=== PATIENT | female | born 1995 | race Caucasian/White ===

== ENCOUNTER 2022-05-09 14:00 | Outpatient (RCR) | payer BC, SELFPAY | END 2022-05-13 13:17 | disposition home or self-care (01) | LOC: HO.PTCHIC 14:00 | PROVIDERS: Visit Provider Orthopaedic Surgery | DX: Z98.890 Other specified postprocedural states (principal) | CPT/HCPCS: 97110; 97112; 97161; 97530 ==

== ENCOUNTER 2022-06-08 06:30 | Emergency (ER) | payer BC, SELFPAY ==
[2022-06-08 07:00] VITALS: BP 112/67; PULSE 90; RESP 16; TEMP 36.4; O2SAT 97; BMI 33.6
--- NOTE | 2022-06-08 08:03 | ED.GENADULT ---
HPI - General Adult General Chief complaint: General Medical Stated complaint: Nausea/Vaginal Discharge Time Seen by Provider: 06/08/22 08:00 Source: patient Mode of arrival: ambulatory Limitations: no limitations History of Present Illness HPI narrative: pt presented with multiple complaints nausea/blood in the urine for days,she has hx of adjustment disorder Onset (ago): day(s) Radiation: non-radiation Severity: mild Pain Consistency: constant Relieving factors: none Exacerbating factors: none Related Data Allergies Allergy/AdvReac Type Severity Reaction Status Date / Time buspirone [From BUSPAR] Allergy Unknown RASH Unverified 11/25/19 19:49 Review of Systems Constitutional: Constitutional: Reports no additional constitutional complaints ENT: Reports system reviewed and no additional complaints, except as documented Cardiovascular: Cardiovascular: Reports no additional cardiovascular complaints Genitourinary: Genitourinary: Reports hematuria PMFSH Past Medical History PMFSH Narrative: Adjustement disorder Social History Social History Advance Directives: No Advance Directives Information Provided: Yes Physical Exam ED Vital Signs: Vital Signs - 24 hr 06/08/22 07:00 Temperature 97.5 F Pulse Rate 90 Respiratory Rate 16 Blood Pressure 112/67 Pulse Oximetry 97 Oxygen Delivery Method Room Air BMI result Body Mass Index 33.6 Const General: cooperative Nutritional Appearance: average body habitus Orientation/consciousness: patient oriented x3 Limitations: no limitations HENMT Head: Yes normal to inspection General nose exam: Normal external nose present Face and sinus: Yes normal facial exam Mouth: Normal oral and palatal mucosa present Throat: Yes posterior oropharynx normal Neck Neck: Yes normal visual inspection Chest Chest palpation & inspection: normal inspection of the chest Resp Effort & Inspection: normal respiratory effort Auscultation: clear to auscultation bilaterally Cardio Jugular venous distension: no JVD Rate: regular rate Rhythm: regular rhythm GI Inspection: Yes normal to inspection Palpation (GI): Soft to palpation Auscultation: normal bowel sounds Skin General skin exam: no rashes or lesions noted and elasticity normal Rashes: no rashes Neuro General: patient oriented x3 Medical Decision Making Medical Decision Making [facility] Narrative: pt presented with hematuria will get UA/labs and reassess Differential Diagnosis Differential Diagnoses: The differential diagnosis associated with the presentation includes kidney stoneUTI/anxiety Lab Data 06/08/22 08:53 06/08/22 08:53 Labs: Lab Results 06/08/22 06/08/22 06/08/22 Range/Units 08:52 08:52 08:53 WBC 5.0 (4.8-10.8) X10*3/uL RBC 4.51 (4.20-5.50) X10*6/uL Hgb 13.5 (12.0-16.0) g/dl Hct 39.4 (37.0-47.0) % MCV 87.4 (80.0-98.0) fL MCH 29.9 (27.0-33.0) pg MCHC 34.3 (31.0-35.0) g/dl RDW 12.3 (11.0-16.0) % Plt Count 260 (160-400) X10*3/uL MPV 8.6 L (9.4-12.3) fL Immature Gran % (Auto) 0.8 H (0.0-0.4) % Neut % (Auto) 50.6 (45-73) % Lymph % (Auto) 38.0 (20-40) % [place] % (Auto) 9.0 (2-11) % Eos % (Auto) 1.2 (0-4) % Baso % (Auto) 0.4 (0-2) % Lymph # (Auto) 1.9 (1.2-4.9) X10*3/uL [place] # (Auto) 0.5 (0.1-1.2) X10*3/uL Eos # (Auto) 0.1 (0.0-0.4) X10*3/uL Baso # (Auto) 0.0 (0.0-0.2) X10*3/uL Abs Immat Gran (auto) 0.04 H (0.00-0.03) X10*3/uL Absolute Neuts (auto) 2.5 (2.0-8.3) x10*3/uL Absolute Nucleated RBC 0.000 (0.0-0.012) X10*3/uL Nucleated RBC % (auto) 0.0 (0.0-0.2) /100WBC Sodium (135-145) mmol/L Potassium (3.3-5.1) mmol/L Chloride (96-108) mmol/L Carbon Dioxide (22-29) mmol/L Anion Gap (12-20) BUN (9-16) mg/dL Creatinine (0.5-1.4) mg/dL Estim Creat Clear Calc Estimated GFR Random Glucose (60-115) mg/dL Calcium (8.4-10.2) mg/dL Total Bilirubin (0.0-1.0) mg/dL AST (5-31) U/L ALT (0-31) U/L Alkaline Phosphatase (39-117) U/L Total Protein (6.5-8.0) g/dL Albumin (3.5-5.0) g/dL Urine Color Yellow Urine Appearance Cloudy Urine pH 6.5 (5.0-9.0) Ur Specific [place] 1.010 (1.005-1.025) Urine Protein Negative (Neg-Trace) mg/dL Urine Glucose (UA) Negative (Negative) mg/dL Urine Ketones Negative (Negative) mg/dL Urine Blood Large (3+) H (Negative) Urine Nitrite Negative (Negative) Ur Leukocyte Esterase Trace H (Negative) Urine RBC 3-5 H (0-2) /HPF Urine WBC 0-5 (0-5) /HPF Ur Squamous Epith Cells 6-10 (0-2) /HPF Urine Bacteria Trace (None Seen) Hyaline Casts 0-2 (0-2) /LPF Urine Test NEGATIVE (NEGATIVE) 06/08/22 Range/Units 08:53 WBC (4.8-10.8) X10*3/uL RBC (4.20-5.50) X10*6/uL Hgb (12.0-16.0) g/dl Hct (37.0-47.0) % MCV (80.0-98.0) fL MCH (27.0-33.0) pg MCHC (31.0-35.0) g/dl RDW (11.0-16.0) % Plt Count (160-400) X10*3/uL MPV (9.4-12.3) fL Immature Gran % (Auto) (0.0-0.4) % Neut % (Auto) (45-73) % Lymph % (Auto) (20-40) % [place] % (Auto) (2-11) % Eos % (Auto) (0-4) % Baso % (Auto) (0-2) % Lymph # (Auto) (1.2-4.9) X10*3/uL [place] # (Auto) (0.1-1.2) X10*3/uL Eos # (Auto) (0.0-0.4) X10*3/uL Baso # (Auto) (0.0-0.2) X10*3/uL Abs Immat Gran (auto) (0.00-0.03) X10*3/uL Absolute Neuts (auto) (2.0-8.3) x10*3/uL Absolute Nucleated RBC (0.0-0.012) X10*3/uL Nucleated RBC % (auto) (0.0-0.2) /100WBC Sodium 140 (135-145) mmol/L Potassium 3.3 (3.3-5.1) mmol/L Chloride 104 (96-108) mmol/L Carbon Dioxide 24 (22-29) mmol/L Anion Gap 15 (12-20) BUN 11 (9-16) mg/dL Creatinine 0.64 (0.5-1.4) mg/dL Estim Creat Clear Calc 145.0 Estimated GFR > 60 Random Glucose 96 (60-115) mg/dL Calcium 8.9 (8.4-10.2) mg/dL Total Bilirubin 0.7 (0.0-1.0) mg/dL AST 19 (5-31) U/L ALT 22 (0-31) U/L Alkaline Phosphatase 72 (39-117) U/L Total Protein 7.1 (6.5-8.0) g/dL Albumin 4.4 (3.5-5.0) g/dL Urine Color Urine Appearance Urine pH (5.0-9.0) Ur Specific [place] (1.005-1.025) Urine Protein (Neg-Trace) mg/dL Urine Glucose (UA) (Negative) mg/dL Urine Ketones (Negative) mg/dL Urine Blood (Negative) Urine Nitrite (Negative) Ur Leukocyte Esterase (Negative) Urine RBC (0-2) /HPF Urine WBC (0-5) /HPF Ur Squamous Epith Cells (0-2) /HPF Urine Bacteria (None Seen) Hyaline Casts (0-2) /LPF Urine Test (NEGATIVE) Discharge Plan Discharge Clinical Impression: Hematuria Patient Disposition: Home, Self-Care Instructions: Hematuria (ED) Additional Instructions: your lab were good kidney test/liver.wbc.You have ew red cell in the urine maybe related to period.you do not have an Emergency at this time You can follow up with Primary Care Doctor if you do not have one call [facility] [phone] Referrals: Physician,Unknown J [Primary Care Provider] - 2 days Interventions: ED Discharge Assessment Last Done: 06/08/22 10:13 Discharge Date/Time: 06/08/22 10:13
[2022-06-08 08:58] LABS: MANUAL DIFF FLAG NO
[2022-06-08 09:00] LABS: Appearance Urine Cloudy; Color Urine Yellow; Glucose Urine UA Negative (Negative); Leukocyte Esterase Urine Trace (Negative); Nitrite Urine Negative (Negative); PH 6.5 (5.0-9.0); UMIC TRIGGER UACC YES; Urine Blood Large (3+) (Negative); Urine Ketones Negative (Negative); Urine Protein Negative (Neg-Trace)
[2022-06-08 09:03] LABS: UPreg QC Valid YES; Urine Pregnancy NEGATIVE (NEGATIVE)
--- NOTE | 2022-06-08 09:05 | PC.NURSE ---
Ambulated to bathroom with steady gait. Labs drawn and sent, awaiting results. Call campos within reach. Pt resting comfortably in bed.
[2022-06-08 09:06] LABS: Basophils Percent Auto 0.4 % (0-2); Eosinophils Absolute Auto 0.1 X10*3/uL (0.0-0.4); Eosinophils Percent Auto 1.2 % (0-4); Hematocrit 39.4 % (37.0-47.0); Hemoglobin 13.5 g/dl (12.0-16.0); Imm Gran Abs Auto 0.04 X10*3/uL (0.00-0.03); Imm Gran Pct Auto 0.8 % (0.0-0.4); Lymphocytes Absolute Auto 1.9 X10*3/uL (1.2-4.9); Mean Corpuscular HGB Conc 34.3 g/dl (31.0-35.0); Mean Corpuscular Hemoglobin 29.9 pg (27.0-33.0); Mean Corpuscular Volume 87.4 fL (80.0-98.0); Mean Platelet Volume 8.6 fL (9.4-12.3); Monocytes Absolute Auto 0.5 X10*3/uL (0.1-1.2); Neutrophils Absolute Auto 2.5 x10*3/uL (2.0-8.3); Neutrophils Percent Auto 50.6 % (45-73); Platelet Count 260 X10*3/uL (160-400); Red Blood Count 4.51 X10*6/uL (4.20-5.50); Red Cell Distribution Width 12.3 % (11.0-16.0)
[2022-06-08 09:12] LABS: Bacteria Urine Trace (None Seen); Hyaline Casts Urine 0-2 /LPF (0-2); WBC Urine 0-5 /HPF (0-5)
[2022-06-08 09:17] LABS: Alanine Aminotransferase 22 U/L (0-31); Albumin Level 4.4 g/dL (3.5-5.0); Alkaline Phosphatase 72 U/L (39-117); Anion Gap 15 (12-20); Aspartate Amino Transferase 19 U/L (5-31); Bilirubin Total 0.7 mg/dL (0.0-1.0); Blood Urea Nitrogen 11 mg/dL (9-16); Calcium 8.9 mg/dL (8.4-10.2); Carbon Dioxide 24 mmol/L (22-29); Chloride 104 mmol/L (96-108); Estimated Glomerular Filt Rate > 60; Glucose Random 96 mg/dL (60-115); Potassium 3.3 mmol/L (3.3-5.1); Sodium 140 mmol/L (135-145); Total Protein 7.1 g/dL (6.5-8.0)
== END 2022-06-08 10:13 | disposition home or self-care (01) ==
PROVIDERS: Emergency Provider Emergency Medicine
DX: R31.9 Hematuria, unspecified (principal)
CPT/HCPCS: 36415; 80053; 81001; 81025; 85025; 99283; 99284

== ENCOUNTER 2022-06-14 16:10 | Inpatient (IN) | payer BC, SELFPAY ==
--- NOTE | 2022-06-14 | ECG_ITS ---
Test Reason : CRISIS Blood Pressure : / mmHG Vent. Rate : 080 BPM Atrial Rate : 080 BPM P-R Int : 142 ms QRS Dur : 078 ms QT Int : 346 ms P-R-T Axes : 061 067 059 degrees QTc Int : 399 ms Normal sinus rhythm Normal ECG When compared with ECG of 01-JUN-2019 09:48, No significant change was found Referred By: Roxy Alatorre Electronically Signed By:Jhonathan Spencer
[2022-06-14 16:21] VITALS: BP 111/76; BP 114/78; PULSE 82; PULSE 98; RESP 18; TEMP 36.7; O2SAT 98; O2SAT 99; BMI 29.4
--- NOTE | 2022-06-14 17:35 | ED.PSYCH ---
HPI - Psych General Chief Complaint: Psychiatric Symptoms Stated Complaint: crisis Time Seen by Provider: 06/14/22 16:27 Source: patient Mode of arrival: EMS Limitations: no limitations History of Present Illness HPI Narrative: Patient comes to the emergency room via ambulance from an urgent care. Patient states that earlier today, patient complained to her landlord that the smoke detectors are not working. The landlord supposedly told the patient that if she is having any trouble breathing, she needs to go to urgent care, so patient did. EMS reports that the urgent care staff was complaining the patient is very disorganized, seems that patient has history of bipolar disorder and schizophrenia and is not taking any medications. Patient is not suicidal homicidal. Patient was brought to the emergency room. Here in the emergency room, patient has multiple vague complaints, states that she has urinary symptoms, some gynecological issues, some behavior health issues. Nothing specific. Difficult to follow patient's conversation, her speech is very scattered and disorganized. Related Data Home Medications Medication Instructions Recorded Confirmed hydroxyzine pamoate 25 mg capsule 25 mg PO BEDTIME PRN Anxiety 06/14/22 06/14/22 trifluoperazine 2 mg tablet 2 mg PO QPM 06/14/22 06/14/22 Allergies Allergy/AdvReac Type Severity Reaction Status Date / Time buspirone [From BUSPAR] Allergy Unknown RASH Unverified 11/25/19 19:49 Review of Systems Review of Systems: Yes Unobtainable due to mental condition (Patient has multiple vague complaints, unable to give specific complaints.) [facility] Past Medical History Medical History (Updated 06/14/22 @ 21:33 by Roxy Alatorre MD) Bipolar disorder Schizophrenia Social History Social History Advance Directives: No Advance Directives Information Provided: Yes Physical Exam Vital Signs: Vital Signs: Last Vital Signs Temp 98.0 F 06/14/22 16:21 Pulse 82 06/14/22 16:21 Resp 18 06/14/22 16:21 BP 114/78 06/14/22 16:21 Pulse Ox 99 06/14/22 16:21 O2 Del Method Room Air 06/14/22 16:21 BMI result Body Mass Index 29.4 Course Course Course Narrative: Appearance: Alert. Oriented X3. No acute distress. Eyes: Pupils equal, round and reactive to light. ENT: Pharynx normal. Neck: Normal inspection. Neck supple. No lymph nodes noted. No crepitus CVS: Normal heart rate and rhythm. Pulses normal. Normal S1 and S2 Respiratory: No respiratory distress. Breath sounds normal. No Wheezing. No rales Abdomen: Soft and nontender. No rigidity. No distention. Skin: Skin warm and dry. Normal skin color. Normal skin turgor. Extremities: No lower extremity edema. No Lacerations. No Rash Neuro: Oriented X 3. No motor deficit. No sensory deficit. Moving all extremities. No slurred speech. CN 2 through 12 grossly intact Psych: calm, cooperative, very disorganized speech, tangential Medications Administered Discontinued Medications Generic Name Dose Route Start Last Admin Trade Name Freq PRN Reason Stop Dose Admin Cefuroxime Axetil 500 mg 06/14/22 21:29 06/14/22 21:47 Cefuroxime Axetil 500 Mg Tablet PO 06/14/22 21:30 500 mg ONCE ONE Administration Medical Decision Making Medical Decision Making [facility] Narrative: -consult care team pending -labs are pending -physician observation status at 17:40 -patient had previously been diagnosed with a UTI, patient not taking her antibiotics. -patient's urine was checked, does have a UTI, patient being started on p.o. cefuroxime. -the care team evaluated the patient, patient being admitted. -22:00, I was informed by the patient's nurse the patient has been very paranoid, screaming. Patient will be given IM Haldol 5 mg, Ativan 2 mg, Benadryl 50 mg. Differential Diagnosis Differential Diagnoses: The differential diagnosis associated with the presentation includes (Schizophrenia, bipolar disorder, UTI) Admission/Observation Consideration of admission/observation: Escalation of care including admission/observation considered Consult Healthcare Provider Management of the patient was discussed with: Behavioral Health Provider Lab Data [facility] Lab Attestation statement: I reviewed the patient's lab results. 06/14/22 18:41 06/14/22 18:41 Labs: Lab Results 06/14/22 06/14/22 06/14/22 Range/Units 17:12 18:41 18:41 WBC 6.4 (4.8-10.8) X10*3/uL RBC 5.07 (4.20-5.50) X10*6/uL Hgb 15.1 (12.0-16.0) g/dl Hct 44.1 (37.0-47.0) % MCV 87.0 (80.0-98.0) fL MCH 29.8 (27.0-33.0) pg MCHC 34.2 (31.0-35.0) g/dl RDW 12.6 (11.0-16.0) % Plt Count 336 D (160-400) X10*3/uL MPV 8.8 L (9.4-12.3) fL Immature Gran % (Auto) 1.1 H (0.0-0.4) % Neut % (Auto) 62.0 (45-73) % Lymph % (Auto) 30.2 (20-40) % [place] % (Auto) 5.3 (2-11) % Eos % (Auto) 0.9 (0-4) % Baso % (Auto) 0.5 (0-2) % Lymph # (Auto) 1.9 (1.2-4.9) X10*3/uL [place] # (Auto) 0.3 (0.1-1.2) X10*3/uL Eos # (Auto) 0.1 (0.0-0.4) X10*3/uL Baso # (Auto) 0.0 (0.0-0.2) X10*3/uL Abs Immat Gran (auto) 0.07 H (0.00-0.03) X10*3/uL Absolute Neuts (auto) 4.0 (2.0-8.3) x10*3/uL Absolute Nucleated RBC 0.000 (0.0-0.012) X10*3/uL Nucleated RBC % (auto) 0.0 (0.0-0.2) /100WBC Sodium 140 (135-145) mmol/L Potassium 3.6 (3.3-5.1) mmol/L Chloride 107 (96-108) mmol/L Carbon Dioxide 24 (22-29) mmol/L Anion Gap 13 (12-20) BUN 13 (9-16) mg/dL Creatinine 0.68 (0.5-1.4) mg/dL Estim Creat Clear Calc 132.3 Estimated GFR > 60 Random Glucose 146 H (60-115) mg/dL Calcium 9.6 D (8.4-10.2) mg/dL Total Bilirubin 0.9 (0.0-1.0) mg/dL AST 15 (5-31) U/L ALT 11 (0-31) U/L Alkaline Phosphatase 78 (39-117) U/L Total Protein 7.6 (6.5-8.0) g/dL Albumin 4.7 (3.5-5.0) g/dL Urine Color Urine Appearance Urine pH (5.0-9.0) Ur Specific [place] (1.005-1.025) Urine Protein (Neg-Trace) mg/dL Urine Glucose (UA) (Negative) mg/dL Urine Ketones (Negative) mg/dL Urine Blood (Negative) Urine Nitrite (Negative) Ur Leukocyte Esterase (Negative) Urine RBC (0-2) /HPF Urine WBC (0-5) /HPF Ur Squamous Epith Cells (0-2) /HPF Urine Bacteria (None Seen) Hyaline Casts (0-2) /LPF Urine Test (NEGATIVE) Salicylates < 5.0 L (15-30) mg/dL Acetaminophen < 17 (<30) mcg/mL Ethyl Alcohol < 10 mg/dL COVID-19 ([facility]) Negative (Negative) COVID-19 Clin Com See Note 06/14/22 06/14/22 Range/Units 20:50 20:50 WBC (4.8-10.8) X10*3/uL RBC (4.20-5.50) X10*6/uL Hgb (12.0-16.0) g/dl Hct (37.0-47.0) % MCV (80.0-98.0) fL MCH (27.0-33.0) pg MCHC (31.0-35.0) g/dl RDW (11.0-16.0) % Plt Count (160-400) X10*3/uL MPV (9.4-12.3) fL Immature Gran % (Auto) (0.0-0.4) % Neut % (Auto) (45-73) % Lymph % (Auto) (20-40) % [place] % (Auto) (2-11) % Eos % (Auto) (0-4) % Baso % (Auto) (0-2) % Lymph # (Auto) (1.2-4.9) X10*3/uL [place] # (Auto) (0.1-1.2) X10*3/uL Eos # (Auto) (0.0-0.4) X10*3/uL Baso # (Auto) (0.0-0.2) X10*3/uL Abs Immat Gran (auto) (0.00-0.03) X10*3/uL Absolute Neuts (auto) (2.0-8.3) x10*3/uL Absolute Nucleated RBC (0.0-0.012) X10*3/uL Nucleated RBC % (auto) (0.0-0.2) /100WBC Sodium (135-145) mmol/L Potassium (3.3-5.1) mmol/L Chloride (96-108) mmol/L Carbon Dioxide (22-29) mmol/L Anion Gap (12-20) BUN (9-16) mg/dL Creatinine (0.5-1.4) mg/dL Estim Creat Clear Calc Estimated GFR Random Glucose (60-115) mg/dL Calcium (8.4-10.2) mg/dL Total Bilirubin (0.0-1.0) mg/dL AST (5-31) U/L ALT (0-31) U/L Alkaline Phosphatase (39-117) U/L Total Protein (6.5-8.0) g/dL Albumin (3.5-5.0) g/dL Urine Color Yellow Urine Appearance Cloudy Urine pH 6.0 (5.0-9.0) Ur Specific [place] >= 1.030 H (1.005-1.025) Urine Protein 100 (2+) H (Neg-Trace) mg/dL Urine Glucose (UA) Negative (Negative) mg/dL Urine Ketones Negative (Negative) mg/dL Urine Blood Large (3+) H (Negative) Urine Nitrite Negative (Negative) Ur Leukocyte Esterase Moderate (2+) H (Negative) Urine RBC 6-10 H (0-2) /HPF Urine WBC >50 (0-5) /HPF Ur Squamous Epith Cells 6-10 (0-2) /HPF Urine Bacteria 4+ (None Seen) Hyaline Casts 0-2 (0-2) /LPF Urine Test NEGATIVE (NEGATIVE) Salicylates (15-30) mg/dL Acetaminophen (<30) mcg/mL Ethyl Alcohol mg/dL COVID-19 ([facility]) (Negative) COVID-19 Clin Com Discharge Plan Discharge Clinical Impression: Schizophrenia, Bipolar disorder, UTI (urinary tract infection) Patient Disposition: Admitted As Inpatient Interventions: [place]-Suicide Risk Severity Scale Last Done: 06/14/22 16:39
[2022-06-14 17:44] LABS: COVID-19 Test Negative (Negative); IDNOW Serial# BCCEAD1C
[2022-06-14 18:46] LABS: MANUAL DIFF FLAG NO
[2022-06-14 18:55] LABS: Basophils Percent Auto 0.5 % (0-2); Eosinophils Absolute Auto 0.1 X10*3/uL (0.0-0.4); Eosinophils Percent Auto 0.9 % (0-4); Hematocrit 44.1 % (37.0-47.0); Hemoglobin 15.1 g/dl (12.0-16.0); Imm Gran Abs Auto 0.07 X10*3/uL (0.00-0.03); Imm Gran Pct Auto 1.1 % (0.0-0.4); Lymphocytes Absolute Auto 1.9 X10*3/uL (1.2-4.9); Lymphocytes Percent Auto 30.2 % (20-40); Mean Corpuscular HGB Conc 34.2 g/dl (31.0-35.0); Mean Corpuscular Hemoglobin 29.8 pg (27.0-33.0); Mean Platelet Volume 8.8 fL (9.4-12.3); Monocytes Absolute Auto 0.3 X10*3/uL (0.1-1.2); Monocytes Percent Auto 5.3 % (2-11); Platelet Count 336 X10*3/uL (160-400); Red Blood Count 5.07 X10*6/uL (4.20-5.50); Red Cell Distribution Width 12.6 % (11.0-16.0); White Blood Count 6.4 X10*3/uL (4.8-10.8)
[2022-06-14 19:08] LABS: Acetaminophen LAB < 17 mcg/mL (<30); Alanine Aminotransferase 11 U/L (0-31); Albumin Level 4.7 g/dL (3.5-5.0); Alkaline Phosphatase 78 U/L (39-117); Anion Gap 13 (12-20); Aspartate Amino Transferase 15 U/L (5-31); Bilirubin Total 0.9 mg/dL (0.0-1.0); Blood Urea Nitrogen 13 mg/dL (9-16); Calcium 9.6 mg/dL (8.4-10.2); Carbon Dioxide 24 mmol/L (22-29); Chloride 107 mmol/L (96-108); Creatinine Clr Calc Pharmacy 132.3; Estimated Glomerular Filt Rate > 60; Ethanol < 10 mg/dL; Glucose Random 146 mg/dL (60-115); Potassium 3.6 mmol/L (3.3-5.1); Salicylate < 5.0 mg/dL (15-30); Sodium 140 mmol/L (135-145); Total Protein 7.6 g/dL (6.5-8.0)
[2022-06-14 21:14] LABS: UPreg QC Valid YES; Urine Pregnancy NEGATIVE (NEGATIVE)
[2022-06-14 21:18] LABS: Appearance Urine Cloudy; Color Urine Yellow; Glucose Urine UA Negative (Negative); Leukocyte Esterase Urine Moderate (2+) (Negative); Nitrite Urine Negative (Negative); Specific Gravity - Urine >= 1.030 (1.005-1.025); UMIC TRIGGER UA YES; Urine Blood Large (3+) (Negative); Urine Ketones Negative (Negative); Urine Protein 100 (2+) mg/dL (Neg-Trace)
[2022-06-14 21:28] LABS: Bacteria Urine 4+ (None Seen); Hyaline Casts Urine 0-2 /LPF (0-2); WBC Urine >50 /HPF (0-5)
[2022-06-14 22:00] VITALS: RESP 16
[2022-06-14] MEDS: LORazepam 2 MG/ML VIAL IM (22:00)
[2022-06-14] MEDS: Haloperidol Lactate 5 MG/ML VIAL IM (22:00)
[2022-06-14] MEDS: diphenhydrAMINE HCL 50 MG/ML VIAL IM (22:00)
[2022-06-14 22:15] VITALS: RESP 16
--- NOTE | 2022-06-14 22:22 | PC.NURSE ---
Patient after taking her Ceftin 500 mg for UTI got paranoid about medication, started screaming, yelling, burring her faced forcefully into pillow, provider notified/ordered/Ativan 2 mg IM, benadryal 50 mg IM, and Haldol 5 mg IM/administered at 2200, pending effect, patient is currently on 1:1 for safety protocol, patient still tearful intermittently screaming, thought content paranoid, disposition per care team is section 12 inpatient bed search, will continue to monitor.
[2022-06-14 22:30] VITALS: RESP 16
[2022-06-14 22:45] VITALS: RESP 16
[2022-06-14 23:00] VITALS: RESP 16
--- NOTE | 2022-06-15 06:06 | PC.NURSE ---
Patient slept through the night, delayed but effective result from chemical restraint, behavior at this time non concerning, behavior at base unpredictable and labile, thought content paranoid with tangential thought process, poor insight, disposition per care team is section 12 inpatient bed search, pre-accepted to [facility] due to increased acuity patient remained ED POD, will continue to monitor.
[2022-06-15 06:37] VITALS: BP 103/59; PULSE 74; RESP 15; TEMP 36.6; O2SAT 99
--- NOTE | 2022-06-15 07:14 | PC.NURSE ---
Resumed care of this patient this morning, Pt given PRN last night, and is still currently sleeping in her room. Safety measures in place at this time.
--- NOTE | 2022-06-15 11:04 | PC.NURSE ---
Remy down to sign paperwork with patient, since then patient has been pacing in the unit, asking multiple times for food or drinks, pt given a puzzle and attempted redirection. Pt mom called, however patient denied wanting to talk with her at this time.
--- NOTE | 2022-06-15 11:45 | PC.NURSE ---
Report given to Leanna from , all questions answered at this time. Pt is currently resting in common room.
--- NOTE | 2022-06-15 16:45 | PC.ADMIT ---
Nursing admission note: 26 year old female DX: Schizoaffective disorder. Referred for treatment by care team. Signed conditional voluntary for admission. Patient presented to [facility] ED via EMS called by [facility]. Patient engaged easily. A+O x3. Disorganized thought process, reports feeling overwhelmed. Endorses anxiety. Denies SI/HI plan or intent. Denies A/V hallucinations. Reports she has out patient provider although they are not local. States she has not been on medications , compliance is unknown. Currently on AB for UTI. Presents with good eye contact, dressed in hospital attire. Calm and cooperative with admission process. Focused on medical complaints, pelvic pain. Declined PRN medication at this time. Per crisis evaluation patient has not been sleeping over past week, has forgotten how to eat. Patient TOX screen negative. Denies drug or alcohol use. COVID negative. History of Lyme disease. Allergy to Buspirone. Patient pacing on unit after arrival, redirected for laying on floor in prayer like position outside of male peer doorway. Patient oriented to unit, placed on 15 minute checks. See nursing assessment, crisis eval for complete details.
--- NOTE | 2022-06-15 16:57 | P.HPPS_ITS ---
HPI Date of Service: 06/15/22 Chief Complaint: Psychosis Sources of Information: patient interviewed, chart reviewed and crisis/core team assessment reviewed HPI Subjective Notes: Conditional Voluntary Medical Problems Affecting Mental Status: No Narrative: 26-year-old, senior at [employer]. Went to urgent care yesterday due to concerns around breathing. Appear disorganized and sent to ED for evaluatio n. Required IM medications once in the ED. Noted home medications include Stelazine. Patient does present with thought disorder and very tangential at times. Spoke about having breathing concerns and asking her landlord about carbon monoxide monitors. Reports this has been a concern for 1 year. Unable to elaborate why it became more acute recently. Reported having difficulty getting organized, preparing food and scheduling. Denied feeling depressed. Denied SI. did describe stressor of potentially relocating but had difficulty elaborate on details. Was unsure if she felt safe currently. Denies hallucinations. Regarding Stelazine, reports that she is partially adherent with this. Reports psychiatrist in [place]. Denied substance issues. 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 Reports this has not been going well but unable to elaborate. Made comments about limited contact with her mother but also having her mother's clothing which was sothing. Mom lives in [place]. Reports father has . Brother living in [place] . We discussed restarting Stelazine or perhaps Haldol, which he reports was helpful when given orally in the past. Preferred Haldol along with Benadryl at nighttime. Also aware she has a UTI and antibiotics ordered. Past Psychiatric History: Diagnosis likely consistent with schizophrenia. Does have difficulty giving clear details. Psychiatrist in [place]. On Stelazine. Reports some tremors on same and therefore partial adherence. Also mentioned a history of an eating disorder. Denied any history of suicide attempts. Last inpatient episode was last summer in [place]. Reports being prescribed antipsychotics and antidepressant medications in the past including tricyclics and trazodone, Seroquel, Abilify, Vraylar, lithium, olanzapine, Risperdal, Geodon, Latuda. Unclear if prescribed Invega. Never prescribed Rexulti or Haldol on a regular basis. 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 Is in the process of relocating it appears, but this is unclear. Originally from [place] where mom still lives. There is a brother in [place]. Single. No recent break-ups. No substance issues. Substance History: None Diagnostics Vital Signs (24Hr): Vital Signs - 24 hr 06/14/22 22:00 06/14/22 22:15 06/14/22 22:30 Temperature Pulse Rate Respiratory Rate 16 16 16 Blood Pressure Pulse Oximetry Oxygen Delivery Method 06/14/22 22:45 06/14/22 23:00 06/15/22 06:37 Temperature 97.9 F Pulse Rate 74 Respiratory Rate 16 16 15 Blood Pressure 103/59 L Pulse Oximetry 99 Oxygen Delivery Method Room Air BMI result Body Mass Index 29.4 Labs 06/14/22 18:41 06/14/22 18:41 Labs: Laboratory Results - last 48 hr 06/14/22 06/14/22 06/14/22 17:12 18:41 18:41 WBC 6.4 RBC 5.07 Hgb 15.1 Hct 44.1 MCV 87.0 MCH 29.8 MCHC 34.2 RDW 12.6 Plt Count 336 D MPV 8.8 L Immature Gran % (Auto) 1.1 H Neut % (Auto) 62.0 Lymph % (Auto) 30.2 [place] % (Auto) 5.3 Eos % (Auto) 0.9 Baso % (Auto) 0.5 Lymph # (Auto) 1.9 [place] # (Auto) 0.3 Eos # (Auto) 0.1 Baso # (Auto) 0.0 Abs Immat Gran (auto) 0.07 H Absolute Neuts (auto) 4.0 Absolute Nucleated RBC 0.000 Nucleated RBC % (auto) 0.0 Sodium 140 Potassium 3.6 Chloride 107 Carbon Dioxide 24 Anion Gap 13 BUN 13 Creatinine 0.68 Estim Creat Clear Calc 132.3 Estimated GFR > 60 Random Glucose 146 H Calcium 9.6 D Total Bilirubin 0.9 AST 15 ALT 11 Alkaline Phosphatase 78 Total Protein 7.6 Albumin 4.7 Urine Color Urine Appearance Urine pH Ur Specific [place] Urine Protein Urine Glucose (UA) Urine Ketones Urine Blood Urine Nitrite Ur Leukocyte Esterase Urine RBC Urine WBC Ur Squamous Epith Cells Urine Bacteria Hyaline Casts Urine Test Salicylates < 5.0 L Acetaminophen < 17 Ethyl Alcohol < 10 COVID-19 ([facility]) Negative COVID-19 Clin Com See Note 06/14/22 06/14/22 20:50 20:50 WBC RBC Hgb Hct MCV MCH MCHC RDW Plt Count MPV Immature Gran % (Auto) Neut % (Auto) Lymph % (Auto) [place] % (Auto) Eos % (Auto) Baso % (Auto) Lymph # (Auto) [place] # (Auto) Eos # (Auto) Baso # (Auto) Abs Immat Gran (auto) Absolute Neuts (auto) Absolute Nucleated RBC Nucleated RBC % (auto) Sodium Potassium Chloride Carbon Dioxide Anion Gap BUN Creatinine Estim Creat Clear Calc Estimated GFR Random Glucose Calcium Total Bilirubin AST ALT Alkaline Phosphatase Total Protein Albumin Urine Color Yellow Urine Appearance Cloudy Urine pH 6.0 Ur Specific [place] >= 1.030 H Urine Protein 100 (2+) H Urine Glucose (UA) Negative Urine Ketones Negative Urine Blood Large (3+) H Urine Nitrite Negative Ur Leukocyte Esterase Moderate (2+) H Urine RBC 6-10 H Urine WBC >50 Ur Squamous Epith Cells 6-10 Urine Bacteria 4+ Hyaline Casts 0-2 Urine Test NEGATIVE Salicylates Acetaminophen Ethyl Alcohol COVID-19 ([facility]) COVID-19 Clin Com Meds/Allergies Meds Home Medications Medication Instructions Recorded Confirmed Type hydroxyzine pamoate 25 mg capsule 25 mg PO BEDTIME PRN Anxiety 06/14/22 06/14/22 History trifluoperazine 2 mg tablet 2 mg PO QPM 06/14/22 06/14/22 History Allergies Allergies Allergy/AdvReac Type Severity Reaction Status Date / Time buspirone [From BUSPAR] Allergy Unknown RASH Unverified 11/25/19 19:49 Mental Status Exam Mental Status Exam Narrative: pleasant. Engaged. Hospital clothing. Self-care okay. Speech is monotone. Guarded. Flat affect. No SI. No HI. Does appear internally preoccupied. Denies hallucinations. Insight and judgment limited to fair regarding medication discussion and treatment Assessment & Plan Assessment & Plan (1) Schizophrenia: Status: Acute Code(s): F20.9 - Schizophrenia, unspecified Plan presents with psychotic symptoms in the context of medication non adherence and psychosocial stressors. has had multiple medication trials in the past. Is open to Haldol, which she reports not being given on a regular basis but this was helpful when given as needed in the past. Will therefore order Haldol along with Benadryl to minimize EPS as per patient request. may consider long-acting injectable, which patient has never been on Patient educated on: medication risk/benefits Reason for continued inpatient stay Substantial Risk for: inability to function Statement Statement: I have reviewed the history and physical and performed a pertinent examination on my patient. No changes have occurred unless specified. If the History and Physical was not performed prior to admission, the Hospitalist's service will be consulted for completing the admission physical. Time Spent With Patient Time: Total time managing care of this patient today ____ minutes.
[2022-06-15] MEDS: HaloperidoL 5 MG TABLET PO (21:17)
[2022-06-15] MEDS: diphenhydrAMINE HCL 25 MG CAPSULE 50 MG PO (21:17)
[2022-06-15] MEDS: Acetaminophen 325 MG TABLET 650 MG PO (21:25)
[2022-06-15 21:29] VITALS: BP 122/71; PULSE 85; RESP 16; TEMP 36.6; O2SAT 98
[2022-06-16 07:21] LABS: Alanine Aminotransferase 14 U/L (0-31); Albumin Level 3.9 g/dL (3.5-5.0); Alkaline Phosphatase 65 U/L (39-117); Anion Gap 12 (12-20); Aspartate Amino Transferase 16 U/L (5-31); Bilirubin Total 0.5 mg/dL (0.0-1.0); Blood Urea Nitrogen 16 mg/dL (9-16); Calcium 9.1 mg/dL (8.4-10.2); Carbon Dioxide 25 mmol/L (22-29); Chloride 107 mmol/L (96-108); Cholesterol 117 mg/dL; Creatinine Clr Calc Pharmacy 134.3; Estimated Glomerular Filt Rate > 60; Glucose Fasting 93 mg/dL (60-99); HDL Cholesterol 29 mg/dL; LDL Cholesterol Calculated 70 mg/dl; Potassium 4.5 mmol/L (3.3-5.1); Sodium 139 mmol/L (135-145); Total Protein 6.2 g/dL (6.5-8.0); Triglycerides 93 mg/dL
[2022-06-16 09:13] VITALS: BP 123/81; PULSE 99; RESP 18; TEMP 36.4; O2SAT 99
[2022-06-16] MEDS: HaloperidoL 1 MG TABLET 2 MG PO (09:14)
[2022-06-16] MEDS: hydrOXYzine HCL 25 MG TABLET PO (12:00)
--- NOTE | 2022-06-16 14:32 | P.PNPSI_ITS ---
Subjective Subjective Date of Service: 06/16/22 Reason For Visit: Psychosis Subjective Notes: Conditional Voluntary Interim History: Met with patient. Discussed with Nursing. Slept well last night with Haldol 5 mg and Benadryl 50 mg. overall reports today feeling much less stressed. Still has concerns regarding physical well-being and that people may have put things into her body such as gynecological instruments leading to abnormal bleeding. Has not had any bleeding in over 1 week. Reports feeling relatively safe on the unit. No SI. No depression. No HI. Was asking for Haldol during the daytime to be discontinued as she is feeling sedate. Feels that nighttime dosing has been very helpful and slept well last night. Medication Compliance: Yes Side effects from medications: No Attending Groups: Intermittent Review of Systems Acute medical concerns: No Review of Systems Review of Systems Nothing acute Mental Status Exam Mental Status Exam Narrative: pleasant. Engaged. Hospital clothing. Self-care okay. Speech is monotone. Guarded. Flat affect. No SI. No HI. Does appear internally preoccupied. Denies hallucinations. Insight and judgment limited to fair regarding medication discussion and treatment Diagnostics Vital Signs (24Hr): Vital Signs - 24 hr 06/15/22 21:29 06/16/22 09:13 Temperature 97.9 F 97.6 F Pulse Rate 85 99 Respiratory Rate 16 18 Blood Pressure 122/71 123/81 Pulse Oximetry 98 99 Oxygen Delivery Method Room Air Room Air BMI result Body Mass Index 29.4 Labs 06/14/22 18:41 06/16/22 06:21 Labs: Laboratory Results - last 48 hr 06/14/22 06/14/22 06/14/22 17:12 18:41 18:41 WBC 6.4 RBC 5.07 Hgb 15.1 Hct 44.1 MCV 87.0 MCH 29.8 MCHC 34.2 RDW 12.6 Plt Count 336 D MPV 8.8 L Immature Gran % (Auto) 1.1 H Neut % (Auto) 62.0 Lymph % (Auto) 30.2 [place] % (Auto) 5.3 Eos % (Auto) 0.9 Baso % (Auto) 0.5 Lymph # (Auto) 1.9 [place] # (Auto) 0.3 Eos # (Auto) 0.1 Baso # (Auto) 0.0 Abs Immat Gran (auto) 0.07 H Absolute Neuts (auto) 4.0 Absolute Nucleated RBC 0.000 Nucleated RBC % (auto) 0.0 Sodium 140 Potassium 3.6 Chloride 107 Carbon Dioxide 24 Anion Gap 13 BUN 13 Creatinine 0.68 Estim Creat Clear Calc 132.3 Estimated GFR > 60 Random Glucose 146 H Fasting Glucose Calcium 9.6 D Total Bilirubin 0.9 AST 15 ALT 11 Alkaline Phosphatase 78 Total Protein 7.6 Albumin 4.7 Triglycerides Cholesterol LDL Cholesterol, Calc HDL Cholesterol Urine Color Urine Appearance Urine pH Ur Specific [place] Urine Protein Urine Glucose (UA) Urine Ketones Urine Blood Urine Nitrite Ur Leukocyte Esterase Urine RBC Urine WBC Ur Squamous Epith Cells Urine Bacteria Hyaline Casts Urine Test Salicylates < 5.0 L Acetaminophen < 17 Ethyl Alcohol < 10 COVID-19 ([facility]) Negative COVID-19 [facility] See Note 06/14/22 06/14/22 06/16/22 20:50 20:50 06:21 WBC RBC Hgb Hct MCV MCH MCHC RDW Plt Count MPV Immature Gran % (Auto) Neut % (Auto) Lymph % (Auto) [place] % (Auto) Eos % (Auto) Baso % (Auto) Lymph # (Auto) [place] # (Auto) Eos # (Auto) Baso # (Auto) Abs Immat Gran (auto) Absolute Neuts (auto) Absolute Nucleated RBC Nucleated RBC % (auto) Sodium 139 Potassium 4.5 D Chloride 107 Carbon Dioxide 25 Anion Gap 12 BUN 16 Creatinine 0.67 Estim Creat Clear Calc 134.3 Estimated GFR > 60 Random Glucose Fasting Glucose 93 Calcium 9.1 Total Bilirubin 0.5 AST 16 ALT 14 Alkaline Phosphatase 65 Total Protein 6.2 L Albumin 3.9 Triglycerides 93 Cholesterol 117 LDL Cholesterol, Calc 70 HDL Cholesterol 29 Urine Color Yellow Urine Appearance Cloudy Urine pH 6.0 Ur Specific [place] >= 1.030 H Urine Protein 100 (2+) H Urine Glucose (UA) Negative Urine Ketones Negative Urine Blood Large (3+) H Urine Nitrite Negative Ur Leukocyte Esterase Moderate (2+) H Urine RBC 6-10 H Urine WBC >50 Ur Squamous Epith Cells 6-10 Urine Bacteria 4+ Hyaline Casts 0-2 Urine Test NEGATIVE Salicylates Acetaminophen Ethyl Alcohol COVID-19 ([facility]) COVID-19 [facility] Medications Medications Current Medications Acetaminophen (Acetaminophen 325 Mg Tablet) 650 mg PO Q6H PRN PRN Reason: Headache/Pain Mild Scale (1-3) Last Admin: 06/15/22 21:25 Dose: 650 mg Al Hydroxide/Mg Hydroxide (Magnesium Hydrox/Alum Hydrox 30 Ml Oral.Susp) 30 ml PO Q6H PRN PRN Reason: Heartburn/Nausea Cefuroxime Axetil (Cefuroxime Axetil 500 Mg Tablet) 500 mg PO BID [facility] Last Admin: 06/16/22 09:14 Dose: 500 mg Diphenhydramine HCl (Diphenhydramine Hcl 25 Mg Capsule) 50 mg PO BEDTIME TALIB Last Admin: 06/15/22 21:17 Dose: 50 mg Haloperidol (Haloperidol 1 Mg Tablet) 2 mg PO BID@0900,1400 [facility] Last Admin: 06/16/22 09:14 Dose: 2 mg Haloperidol (Haloperidol 5 Mg Tablet) 5 mg PO BEDTIME TALIB Last Admin: 06/15/22 21:17 Dose: 5 mg Haloperidol (Haloperidol 5 Mg Tablet) 5 mg PO TID PRN PRN Reason: pychosis Hydroxyzine HCl (Hydroxyzine Hcl 25 Mg Tablet) 25 mg PO BEDTIME PRN PRN Reason: Anxiety Hydroxyzine HCl (Hydroxyzine Hcl 25 Mg Tablet) 25 mg PO Q6H PRN PRN Reason: Anxiety Last Admin: 06/16/22 12:00 Dose: 25 mg Magnesium Hydroxide (Milk Of Magnesia 30 Ml Oral.Susp) 30 ml PO DAILY PRN PRN Reason: Constipation Trazodone HCl (Trazodone Hcl 50 Mg Tablet) 50 mg PO BEDTIME MRX1 PRN PRN Reason: Insomnia Allergies Allergies Allergy/AdvReac Type Severity Reaction Status Date / Time buspirone [From BUSPAR] Allergy Unknown RASH Unverified 11/25/19 19:49 Assessment & Plan Assessment & Plan (1) Schizophrenia: Status: Acute Code(s): F20.9 - Schizophrenia, unspecified Plan presents with psychotic symptoms in the context of medication non adherence and psychosocial stressors. has had multiple medication trials in the past. Is open to Haldol, which she reports not being given on a regular basis but this was helpful when given as needed in the past. Will therefore order Haldol along with Benadryl to minimize EPS as per patient request. may consider long-acting injectable, which patient has never been on 06/16/2022: Discontinue daytime Haldol dosing and maintain nighttime Haldol with Benadryl Reason for contiued inpatient stay Substantial Risk for: inability to function Time Spent With Patient Time: Total time managing care of this patient today ____ minutes.
[2022-06-16 20:46] VITALS: BP 124/64; PULSE 103; RESP 20; TEMP 36.5; O2SAT 97
[2022-06-16] MEDS: Acetaminophen 325 MG TABLET 650 MG PO (20:47)
[2022-06-16] MEDS: diphenhydrAMINE HCL 25 MG CAPSULE 50 MG PO (20:48)
[2022-06-16] MEDS: HaloperidoL 5 MG TABLET PO (20:48)
[2022-06-16] MEDS: Milk of Magnesia 30 ML ORAL.SUSP PO (20:49)
[2022-06-17] MEDS: Acetaminophen 325 MG TABLET 650 MG PO (05:43)
[2022-06-17] MEDS: hydrOXYzine HCL 25 MG TABLET PO ×2 (05:55→23:35)
[2022-06-17 09:00] VITALS: BP 127/72; PULSE 65; RESP 18; TEMP 36.4; O2SAT 97
[2022-06-17] MEDS: Ibuprofen 600 MG TABLET PO (10:46)
[2022-06-17] MEDS: diphenhydrAMINE HCL 25 MG CAPSULE PO ×2 (10:47→16:32)
--- NOTE | 2022-06-17 15:23 | P.PNPSI_ITS ---
Subjective Subjective Date of Service: 06/17/22 Reason For Visit: Psychosis Interim History: pt presents as pressured and tangential. states she did well on lithium in the past but it caused thyroid damage and another patient somewhere scared her by saying it had made her legs turn purple. nevertheless, after a long and circuitous conversation, she agrees to give lithium another trial. per staff, 3-day notice up . kicked and punched wall 2/2 pelvic discomfort. odd, disorganized, bizarre. appearing to sleep. Mental Status Exam Mental Status Exam Narrative: pleasant. Engaged. Hospital clothing. Self-care okay. Speech is monotone. Guarded. Flat affect. No SI. No HI. Does appear internally preoccupied. Denies hallucinations. Insight and judgment limited to fair regarding medication discussion and treatment Diagnostics Vital Signs (24Hr): Vital Signs - 24 hr 06/16/22 20:46 06/17/22 09:00 Temperature 97.7 F 97.6 F Pulse Rate 103 H 65 Respiratory Rate 20 18 Blood Pressure 124/64 127/72 Pulse Oximetry 97 97 Oxygen Delivery Method Room Air Room Air BMI result Body Mass Index 29.4 Labs 06/14/22 18:41 06/16/22 06:21 Labs: Laboratory Results - last 48 hr 06/16/22 06:21 Sodium 139 Potassium 4.5 D Chloride 107 Carbon Dioxide 25 Anion Gap 12 BUN 16 Creatinine 0.67 Estim Creat Clear Calc 134.3 Estimated GFR > 60 Fasting Glucose 93 Calcium 9.1 Total Bilirubin 0.5 AST 16 ALT 14 Alkaline Phosphatase 65 Total Protein 6.2 L Albumin 3.9 Triglycerides 93 Cholesterol 117 LDL Cholesterol, Calc 70 HDL Cholesterol 29 Medications Medications Current Medications Acetaminophen (Acetaminophen 325 Mg Tablet) 650 mg PO Q6H PRN PRN Reason: Headache/Pain Mild Scale (1-3) Last Admin: 06/17/22 05:43 Dose: 650 mg Al Hydroxide/Mg Hydroxide (Magnesium Hydrox/Alum Hydrox 30 Ml Oral.Susp) 30 ml PO Q6H PRN PRN Reason: Heartburn/Nausea Cefuroxime Axetil (Cefuroxime Axetil 500 Mg Tablet) 500 mg PO BID [facility] Last Admin: 06/17/22 09:01 Dose: 500 mg Diphenhydramine HCl (Diphenhydramine Hcl 25 Mg Capsule) 50 mg PO BEDTIME [facility] Last Admin: 06/16/22 20:48 Dose: 50 mg Diphenhydramine HCl (Diphenhydramine Hcl 25 Mg Capsule) 25 mg PO Q4H PRN PRN Reason: akathisia Last Admin: 06/17/22 10:47 Dose: 25 mg Haloperidol (Haloperidol 5 Mg Tablet) 5 mg PO BEDTIME TALIB Last Admin: 06/16/22 20:48 Dose: 5 mg Haloperidol (Haloperidol 5 Mg Tablet) 5 mg PO TID PRN PRN Reason: pychosis Hydroxyzine HCl (Hydroxyzine Hcl 25 Mg Tablet) 25 mg PO BEDTIME PRN PRN Reason: Anxiety Hydroxyzine HCl (Hydroxyzine Hcl 25 Mg Tablet) 25 mg PO Q6H PRN PRN Reason: Anxiety Last Admin: 06/17/22 05:55 Dose: 25 mg [place] Carbonate ([place] Carbonate Er 450 Mg Tablet.Er) 450 mg PO BID TALIB Magnesium Hydroxide (Milk Of Magnesia 30 Ml Oral.Susp) 30 ml PO DAILY PRN PRN Reason: Constipation Last Admin: 06/16/22 20:49 Dose: 30 ml Trazodone HCl (Trazodone Hcl 50 Mg Tablet) 50 mg PO BEDTIME MRX1 PRN PRN Reason: Insomnia Allergies Allergies Allergy/AdvReac Type Severity Reaction Status Date / Time buspirone [From BUSPAR] Allergy Unknown RASH Unverified 11/25/19 19:49 Assessment & Plan Assessment & Plan (1) Schizophrenia: Status: Acute Code(s): F20.9 - Schizophrenia, unspecified Plan presents with psychotic symptoms in the context of medication non adherence and psychosocial stressors. has had multiple medication trials in the past. Is open to Haldol, which she reports not being given on a regular basis but this was helpful when given as needed in the past. Will therefore order Haldol along with Benadryl to minimize EPS as per patient request. may consider long-acting injectable, which patient has never been on 06/16/2022: Discontinue daytime Haldol dosing and maintain nighttime Haldol with Benadryl 06/17: presentation c/w skyler, pt reports good response to lithium in the past. restart lithium at 450 mg BID. Reason for contiued inpatient stay Substantial Risk for: inability to function and rapid decompensation Time Spent With Patient Time: Total time managing care of this patient today __35__ minutes.
[2022-06-17] MEDS: Lithium Carbonate ER 450 MG TABLET.ER PO ×2 (15:34→21:30)
[2022-06-17] MEDS: Milk of Magnesia 30 ML ORAL.SUSP PO (15:47)
[2022-06-17] MEDS: HaloperidoL 5 MG TABLET PO ×2 (16:29→21:30)
[2022-06-17 20:15] VITALS: BP 136/81; PULSE 73; RESP 18; TEMP 36.6; O2SAT 98
[2022-06-17] MEDS: Docusate Sodium 100 MG CAPSULE PO (21:30)
[2022-06-17] MEDS: diphenhydrAMINE HCL 25 MG CAPSULE 50 MG PO (21:31)
[2022-06-17] MEDS: traZODone HCL 50 MG TABLET PO (23:35)
--- NOTE | 2022-06-18 02:32 | PC.NURSE ---
Soraida is noted to be intermittently visible on the unit. her mood is labile with multiple somatic complaints. she endorses abdominal pain 6/10 but declined pain medication. she stated worry over possibly having endometriosis. this rfp writer attempted to review breathing and relaxation techniques with the patient however she grabbed her head and softly yelled stating that she had too much anxiety and could not listen to this rfp writer anymore but continues to c/o anxiety stating that nothing was helping. she received trazodone and atarax and moments later complained that the medications were not working. I again attempted to review relaxation techniques with the patient and she again stated that she couldn't listen because it was too much information and she was too anxious. patient retired to her room and has been resting in apparent comfort since
[2022-06-18] MEDS: Lithium Carbonate ER 450 MG TABLET.ER PO ×2 (08:45→22:24)
[2022-06-18] MEDS: Docusate Sodium 100 MG CAPSULE PO ×2 (08:45→22:24)
[2022-06-18 08:55] VITALS: BP 115/66; PULSE 77; RESP 18; TEMP 36.6; O2SAT 98
[2022-06-18] MEDS: LORazepam 1 MG TABLET PO ×2 (10:44→19:51)
[2022-06-18] MEDS: diphenhydrAMINE HCL 25 MG CAPSULE PO (11:33)
[2022-06-18] MEDS: HaloperidoL 5 MG TABLET PO (11:33)
--- NOTE | 2022-06-18 16:53 | P.PNPSI_ITS ---
Subjective Subjective Date of Service: 06/18/22 Reason For Visit: Psychosis Interim History: not demonstrably changed from yesterday. asking for latuda rather than haldol, saying she tolerated it better, which is agreed upon. agreeable to ativan PRN anxiety. encouraged to withdraw 3-day notice. per staff, 3-day up tomorrow. anx/dep 7. refusing some meds. denies SI/HI/AVH. c/o intrusive thoughts. tearful at times. somatic, hugged peer. slept after MN. Mental Status Exam Mental Status Exam Narrative: pleasant. Engaged. street clothes. Self-care okay. Speech is monotone. Guarded. Flat affect. No SI. No HI. Does appear internally preoccupied. Denies hallucinations. Insight and judgment limited to fair regarding medication discussion and treatment Diagnostics Vital Signs (24Hr): Vital Signs - 24 hr 06/17/22 20:15 06/18/22 08:55 Temperature 97.8 F 97.9 F Pulse Rate 73 77 Respiratory Rate 18 18 Blood Pressure 136/81 115/66 Pulse Oximetry 98 98 Oxygen Delivery Method Room Air Room Air BMI result Body Mass Index 29.4 Labs 06/14/22 18:41 06/16/22 06:21 Medications Medications Current Medications Acetaminophen (Acetaminophen 325 Mg Tablet) 650 mg PO Q6H PRN PRN Reason: Headache/Pain Mild Scale (1-3) Last Admin: 06/17/22 05:43 Dose: 650 mg Al Hydroxide/Mg Hydroxide (Magnesium Hydrox/Alum Hydrox 30 Ml Oral.Susp) 30 ml PO Q6H PRN PRN Reason: Heartburn/Nausea Cefuroxime Axetil (Cefuroxime Axetil 500 Mg Tablet) 500 mg PO BID [facility] Last Admin: 06/18/22 08:45 Dose: 500 mg Diphenhydramine HCl (Diphenhydramine Hcl 25 Mg Capsule) 50 mg PO BEDTIME [facility] Last Admin: 06/17/22 21:31 Dose: 50 mg Diphenhydramine HCl (Diphenhydramine Hcl 25 Mg Capsule) 25 mg PO Q4H PRN PRN Reason: akathisia Last Admin: 06/18/22 11:33 Dose: 25 mg Docusate Sodium (Docusate Sodium 100 Mg Capsule) 100 mg PO BID [facility] Last Admin: 06/18/22 08:45 Dose: 100 mg Haloperidol (Haloperidol 5 Mg Tablet) 5 mg PO TID PRN PRN Reason: pychosis Last Admin: 06/18/22 11:33 Dose: 5 mg Hydroxyzine HCl (Hydroxyzine Hcl 25 Mg Tablet) 25 mg PO BEDTIME PRN PRN Reason: Anxiety Hydroxyzine HCl (Hydroxyzine Hcl 25 Mg Tablet) 25 mg PO Q6H PRN PRN Reason: Anxiety Last Admin: 06/17/22 23:35 Dose: [address] [place] Carbonate ([place] Carbonate Er 450 Mg Tablet.Er) 450 mg PO BID [facility] Last Admin: 06/18/22 08:45 Dose: 450 mg Lorazepam (Lorazepam 1 Mg Tablet) 1 mg PO Q4H PRN PRN Reason: severe anxiety Last Admin: 06/18/22 10:44 Dose: 1 mg Lurasidone HCl (Lurasidone Hcl 20 Mg Tablet) 20 mg PO BEDTIME TALIB Magnesium Hydroxide (Milk Of Magnesia 30 Ml Oral.Susp) 30 ml PO DAILY PRN PRN Reason: Constipation Last Admin: 06/17/22 15:47 Dose: 30 ml Trazodone HCl (Trazodone Hcl 50 Mg Tablet) 50 mg PO BEDTIME MRX1 PRN PRN Reason: Insomnia Last Admin: 06/17/22 23:35 Dose: 50 mg Allergies Allergies Allergy/AdvReac Type Severity Reaction Status Date / Time buspirone [From BUSPAR] Allergy Unknown RASH Unverified 11/25/19 19:49 Assessment & Plan Assessment & Plan (1) Schizophrenia: Status: Acute Code(s): F20.9 - Schizophrenia, unspecified Plan presents with psychotic symptoms in the context of medication non adherence and psychosocial stressors. has had multiple medication trials in the past. Is open to Haldol, which she reports not being given on a regular basis but this was helpful when given as needed in the past. Will therefore order Haldol along with Benadryl to minimize EPS as per patient request. may consider long-acting injectable, which patient has never been on 06/16/2022: Discontinue daytime Haldol dosing and maintain nighttime Haldol with Benadryl 06/17: presentation c/w skyler, pt reports good response to lithium in the past. restart lithium at 450 mg BID. 06/18: no gross change from yesterday. asking to DC haldol and start latuda, which is done. asking for PRN for anxiety, agrees to ativan 1 mg Q4H PRN. 3- day up tomorrow. Reason for contiued inpatient stay Substantial Risk for: inability to function and rapid decompensation Time Spent With Patient Time: Total time managing care of this patient today __25__ minutes.
[2022-06-18 18:34] VITALS: BP 118/84; PULSE 102; RESP 18; TEMP 36.6; O2SAT 98
[2022-06-18] MEDS: Lurasidone HCl 20 MG TABLET PO (22:24)
[2022-06-18] MEDS: diphenhydrAMINE HCL 25 MG CAPSULE 50 MG PO (22:24)
[2022-06-19 09:01] VITALS: BP 120/75; PULSE 101; RESP 16; TEMP 36.6; O2SAT 97
[2022-06-19] MEDS: Docusate Sodium 100 MG CAPSULE PO ×2 (09:02→22:36)
[2022-06-19] MEDS: Lithium Carbonate ER 450 MG TABLET.ER PO (09:03)
[2022-06-19] MEDS: LORazepam 1 MG TABLET PO ×2 (09:03→17:42)
[2022-06-19] MEDS: Acetaminophen 325 MG TABLET 650 MG PO (09:15)
[2022-06-19] MEDS: Milk of Magnesia 30 ML ORAL.SUSP PO (09:17)
[2022-06-19] MEDS: hydrOXYzine HCL 25 MG TABLET PO (13:06)
--- NOTE | 2022-06-19 15:21 | HO.PSYCHPN ---
Subjective Subjective Date of Service: 06/19/22 Reason For Visit: Psychosis Interim History: cooperative, hyperverbal. c/o vaginal pain, SHERRILL concerns and requests for residential Tx. extremely reluctant to increase lithium to 600 BID from 450 BID even while acknowledging the medication has been helpful for her. discuss her plans to withdraw from school. per staff, very anxious yesterday, had haldol benadryl and ativan PRNs. appeared less somatically focussed. attended art group. feeling disappointed in herself. reported faint voices in the shower yesterday. Mental Status Exam Mental Status Exam Narrative: pleasant. Engaged. street clothes. Self-care okay. Speech is monotone. Guarded. Flat affect. No SI. No HI. Does appear internally preoccupied. Denies hallucinations. Insight and judgment limited to fair regarding medication discussion and treatment Diagnostics Vital Signs (24Hr): Vital Signs - 24 hr 06/18/22 18:34 06/19/22 09:01 Temperature 97.8 F 98 F Pulse Rate 102 H 101 H Respiratory Rate 18 16 Blood Pressure 118/84 120/75 Pulse Oximetry 98 97 Oxygen Delivery Method Room Air BMI result Body Mass Index 29.4 Labs 06/14/22 18:41 06/16/22 06:21 Medications Medications Current Medications Acetaminophen (Acetaminophen 325 Mg Tablet) 650 mg PO Q6H PRN PRN Reason: Headache/Pain Mild Scale (1-3) Last Admin: 06/19/22 09:15 Dose: 650 mg Al Hydroxide/Mg Hydroxide (Magnesium Hydrox/Alum Hydrox 30 Ml Oral.Susp) 30 ml PO Q6H PRN PRN Reason: Heartburn/Nausea Cefuroxime Axetil (Cefuroxime Axetil 500 Mg Tablet) 500 mg PO BID [facility] Stop: 06/20/22 08:59 Last Admin: 06/19/22 09:02 Dose: 500 mg Diphenhydramine HCl (Diphenhydramine Hcl 25 Mg Capsule) 50 mg PO BEDTIME [facility] Last Admin: 06/18/22 22:24 Dose: 50 mg Diphenhydramine HCl (Diphenhydramine Hcl 25 Mg Capsule) 25 mg PO Q4H PRN PRN Reason: akathisia Last Admin: 06/18/22 11:33 Dose: 25 mg Docusate Sodium (Docusate Sodium 100 Mg Capsule) 100 mg PO BID [facility] Last Admin: 06/19/22 09:02 Dose: 100 mg Haloperidol (Haloperidol 5 Mg Tablet) 5 mg PO TID PRN PRN Reason: pychosis Last Admin: 06/18/22 11:33 Dose: 5 mg Hydroxyzine HCl (Hydroxyzine Hcl 25 Mg Tablet) 25 mg PO BEDTIME PRN PRN Reason: Anxiety Hydroxyzine HCl (Hydroxyzine Hcl 25 Mg Tablet) 25 mg PO Q6H PRN PRN Reason: Anxiety Last Admin: 06/19/22 13:06 Dose: 25 mg [place] Carbonate ([place] Carbonate Er 300 Mg Tablet.Er) 600 mg PO BID [facility] Lorazepam (Lorazepam 1 Mg Tablet) 1 mg PO Q4H PRN PRN Reason: severe anxiety Last Admin: 06/19/22 09:03 Dose: 1 mg Lurasidone HCl (Lurasidone Hcl 20 Mg Tablet) 20 mg PO BEDTIME [facility] Last Admin: 06/18/22 22:24 Dose: 20 mg Magnesium Hydroxide (Milk Of Magnesia 30 Ml Oral.Susp) 30 ml PO DAILY PRN PRN Reason: Constipation Last Admin: 06/19/22 09:17 Dose: 30 ml Trazodone HCl (Trazodone Hcl 50 Mg Tablet) 50 mg PO BEDTIME MRX1 PRN PRN Reason: Insomnia Last Admin: 06/17/22 23:35 Dose: 50 mg Allergies Allergies Allergy/AdvReac Type Severity Reaction Status Date / Time buspirone [From BUSPAR] Allergy Unknown RASH Unverified 11/25/19 19:49 Assessment & Plan Assessment & Plan (1) Schizophrenia: Status: Acute Code(s): F20.9 - Schizophrenia, unspecified Plan presents with psychotic symptoms in the context of medication non adherence and psychosocial stressors. has had multiple medication trials in the past. Is open to Haldol, which she reports not being given on a regular basis but this was helpful when given as needed in the past. Will therefore order Haldol along with Benadryl to minimize EPS as per patient request. may consider long-acting injectable, which patient has never been on 06/16/2022: Discontinue daytime Haldol dosing and maintain nighttime Haldol with Benadryl 06/17: presentation c/w skyler, pt reports good response to lithium in the past. restart lithium at 450 mg BID. 06/18: no gross change from yesterday. asking to DC haldol and start latuda, which is done. asking for PRN for anxiety, agrees to ativan 1 mg Q4H PRN. 3-day up tomorrow. 06/19: rescinded 3-day notice yesterday. increase lithium to 600 BID due to ongoning skyler, albeit improved. Reason for contiued inpatient stay Substantial Risk for: harm to self, inability to function and rapid decompensation Time Spent With Patient Time: Total time managing care of this patient today __35__ minutes.
[2022-06-19 21:15] VITALS: BP 119/79; PULSE 109; RESP 18; TEMP 36.5; O2SAT 100
[2022-06-19] MEDS: Lurasidone HCl 20 MG TABLET PO (22:36)
[2022-06-19] MEDS: diphenhydrAMINE HCL 25 MG CAPSULE 50 MG PO (22:36)
[2022-06-19] MEDS: Lithium Carbonate ER 300 MG TABLET.ER 600 MG PO (22:36)
[2022-06-19] MEDS: Ibuprofen 600 MG TABLET PO (22:56)
--- NOTE | 2022-06-19 23:12 | PC.NURSE ---
Soraida reported a moderate headache and told nurse that Tylenol does not work well on her headaches and requested Motrin. Patient was given a 1 time dose of ibuprofen 600mg PO prn.
[2022-06-20 07:00] VITALS: BMI 29.9
[2022-06-20 09:22] VITALS: BP 113/78; PULSE 89; RESP 16; TEMP 36.6; O2SAT 99
[2022-06-20] MEDS: Lithium Carbonate ER 300 MG TABLET.ER 600 MG PO ×2 (09:45→22:13)
[2022-06-20] MEDS: Docusate Sodium 100 MG CAPSULE PO ×2 (09:45→22:13)
--- NOTE | 2022-06-20 13:21 | PC.NURSE ---
Pt engaged in an individual gross motor/coping skills activity in the group room. Pt tried a 15 minute kickboxing video to help identify positive coping skills to utilize when feeling anxious. Pt had expressed an interest in kickboxing and was excited when offered time to participate in this session. Pt was notably brighter throughout, smiling while engaging in the video. Upon completition, pt expressed that she enjoyed the activity and found that it was a great way to get out some of her internal energy/anxiety. Pt requested permission to ask this OT for additional kickboxing time when her anxiety is high.
--- NOTE | 2022-06-20 15:18 | P.PNPSI_ITS ---
Subjective Subjective Date of Service: 06/20/22 Reason For Visit: Psychosis Interim History: less pressured, but still disorganized and hyperverbal. c/o poor concentration. somatic, bizarre, delusional. per staff, engaged, less depressed. no AVH. incongruent statements. sleeping well. Mental Status Exam Mental Status Exam Narrative: pleasant. Engaged. street clothes. Self-care okay. Speech is monotone. Guarded. Flat affect. No SI. No HI. Does appear internally preoccupied. Denies hallucinations. Insight and judgment limited to fair regarding medication discussion and treatment Diagnostics Vital Signs (24Hr): Vital Signs - 24 hr 06/19/22 21:15 06/20/22 09:22 Temperature 97.7 F 97.9 F Pulse Rate 109 H 89 Respiratory Rate 18 16 Blood Pressure 119/79 113/78 Pulse Oximetry 100 99 Oxygen Delivery Method Room Air Room Air BMI result Body Mass Index 29.9 Labs 06/14/22 18:41 06/16/22 06:21 Medications Medications Current Medications Acetaminophen (Acetaminophen 325 Mg Tablet) 975 mg PO Q6H PRN PRN Reason: Headache/Pain Mild Scale (1-3) Al Hydroxide/Mg Hydroxide (Magnesium Hydrox/Alum Hydrox 30 Ml Oral.Susp) 30 ml PO Q6H PRN PRN Reason: Heartburn/Nausea Diphenhydramine HCl (Diphenhydramine Hcl 25 Mg Capsule) 50 mg PO BEDTIME [facility] Last Admin: 06/19/22 22:36 Dose: 50 mg Diphenhydramine HCl (Diphenhydramine Hcl 25 Mg Capsule) 25 mg PO Q4H PRN PRN Reason: akathisia Last Admin: 06/18/22 11:33 Dose: 25 mg Docusate Sodium (Docusate Sodium 100 Mg Capsule) 100 mg PO BID [facility] Last Admin: 06/20/22 09:45 Dose: 100 mg Haloperidol (Haloperidol 5 Mg Tablet) 5 mg PO TID PRN PRN Reason: pychosis Last Admin: 06/18/22 11:33 Dose: 5 mg Hydroxyzine HCl (Hydroxyzine Hcl 25 Mg Tablet) 25 mg PO BEDTIME PRN PRN Reason: Anxiety Hydroxyzine HCl (Hydroxyzine Hcl 25 Mg Tablet) 25 mg PO Q6H PRN PRN Reason: Anxiety Last Admin: 06/19/22 13:06 Dose: 25 mg [place] Carbonate ([place] Carbonate Er 300 Mg Tablet.Er) 600 mg PO BID [facility] Last Admin: 06/20/22 09:45 Dose: 600 mg Lorazepam (Lorazepam 1 Mg Tablet) 1 mg PO Q4H PRN PRN Reason: severe anxiety Last Admin: 06/19/22 17:42 Dose: 1 mg Lurasidone HCl (Lurasidone Hcl 20 Mg Tablet) 20 mg PO BEDTIME [facility] Last Admin: 06/19/22 22:36 Dose: 20 mg Magnesium Hydroxide (Milk Of Magnesia 30 Ml Oral.Susp) 30 ml PO DAILY PRN PRN Reason: Constipation Last Admin: 06/19/22 09:17 Dose: 30 ml Trazodone HCl (Trazodone Hcl 50 Mg Tablet) 50 mg PO BEDTIME MRX1 PRN PRN Reason: Insomnia Last Admin: 06/17/22 23:35 Dose: 50 mg Allergies Allergies Allergy/AdvReac Type Severity Reaction Status Date / Time buspirone [From BUSPAR] Allergy Unknown RASH Unverified 11/25/19 19:49 Assessment & Plan Assessment & Plan (1) Schizophrenia: Status: Acute Code(s): F20.9 - Schizophrenia, unspecified Plan presents with psychotic symptoms in the context of medication non adherence and psychosocial stressors. has had multiple medication trials in the past. Is open to Haldol, which she reports not being given on a regular basis but this was helpful when given as needed in the past. Will therefore order Haldol along with Benadryl to minimize EPS as per patient request. may consider long-acting injectable, which patient has never been on 06/16/2022: Discontinue daytime Haldol dosing and maintain nighttime Haldol with Benadryl 06/17: presentation c/w skyler, pt reports good response to lithium in the past. restart lithium at 450 mg BID. 06/18: no gross change from yesterday. asking to DC haldol and start latuda, which is done. asking for PRN for anxiety, agrees to ativan 1 mg Q4H PRN. 3- day up tomorrow. 06/19: rescinded 3-day notice yesterday. increase lithium to 600 BID due to ongoing skyler, albeit improved. 06/20: continue current mgmt. attempt to have pt increase HS latuda to 40 mg. check lithium level friday [place]. Reason for contiued inpatient stay Substantial Risk for: inability to function and rapid decompensation Time Spent With Patient Time: Total time managing care of this patient today __25__ minutes.
[2022-06-20 20:25] VITALS: BP 115/73; PULSE 107; RESP 18; TEMP 36.7; O2SAT 98
[2022-06-20] MEDS: diphenhydrAMINE HCL 25 MG CAPSULE 50 MG PO (22:12)
[2022-06-20] MEDS: Lurasidone HCl 20 MG TABLET PO (22:13)
--- NOTE | 2022-06-20 23:31 | PC.NURSE ---
Soraida is noted to be visible throughout the shift. she is pleasant and cooperative upon approach. she requires reminders at times r/t personal boundaries with peers and staff. she is superficial with this RN during interview she denies all psych symptoms but looks to staff for reassurance. no behavioral concerns, continue plan of care
[2022-06-21 08:00] VITALS: BP 119/86; PULSE 90; RESP 16; TEMP 36.6; O2SAT 98
[2022-06-21] MEDS: Lithium Carbonate ER 300 MG TABLET.ER 600 MG PO ×2 (08:55→22:10)
[2022-06-21] MEDS: Docusate Sodium 100 MG CAPSULE PO ×2 (08:56→22:10)
--- NOTE | 2022-06-21 10:00 | P.PNPSI_ITS ---
Subjective Subjective Date of Service: 06/21/22 Reason For Visit: Psychosis Interim History: met with patient; discussed with team; reviewed provider notes pt remains manic, hyperverbal and delusional. Pt rambles, is very circumstantial and tangential and difficult to interrupt. Patient overly friendly with male peers with lowered inhibitions. Pt talked about a past experience where she reports having black blood in her vagina; she saw a Glove Former, but no treatment; she says she felt that during sleep her genitalia was mutilated; then noticed that her genitalia has disappear ed. She would like to see a Properties Supervisor on discharge about these issues. Patient also says she wants to go to [facility]; travel writer tried several times to understand her history with eating disorder however patient was too disorganized to explain it. Mental Status Exam Mental Status Exam Narrative: Pt is alert and oriented; behavior is cooperative, overly friendly but manic; patient is not in distress; dressed in casual attire with unkempt hair but adequate hygiene; mood is described as good and affect congruent; eye contact appropriate; Speech is pressured and difficult to interrupt, but normal volume and prosody; psychomotor agitation present; thought process is very circumstantial and tangential; Thought content is perseverative on delusional ideas about gynecological issues; also about history of eating disorder; denies any SI/HI. Patient appears internally preoccupied; Patients insight and judgment are impaired. Diagnostics Vital Signs (24Hr): Vital Signs - 24 hr 06/20/22 20:25 06/21/22 08:00 Temperature 98.1 F 97.8 F Pulse Rate 107 H 90 Respiratory Rate 18 16 Blood Pressure 115/73 119/86 Pulse Oximetry 98 98 Oxygen Delivery Method Room Air Room Air BMI result Body Mass Index 29.9 Labs 06/14/22 18:41 06/16/22 06:21 Medications Medications Current Medications Acetaminophen (Acetaminophen 325 Mg Tablet) 975 mg PO Q6H PRN PRN Reason: Headache/Pain Mild Scale (1-3) Al Hydroxide/Mg Hydroxide (Magnesium Hydrox/Alum Hydrox 30 Ml Oral.Susp) 30 ml PO Q6H PRN PRN Reason: Heartburn/Nausea Diphenhydramine HCl (Diphenhydramine Hcl 25 Mg Capsule) 50 mg PO BEDTIME [facility] Last Admin: 06/20/22 22:12 Dose: 50 mg Diphenhydramine HCl (Diphenhydramine Hcl 25 Mg Capsule) 25 mg PO Q4H PRN PRN Reason: akathisia Last Admin: 06/18/22 11:33 Dose: 25 mg Docusate Sodium (Docusate Sodium 100 Mg Capsule) 100 mg PO BID [facility] Last Admin: 06/21/22 08:56 Dose: 100 mg Haloperidol (Haloperidol 5 Mg Tablet) 5 mg PO TID PRN PRN Reason: pychosis Last Admin: 06/18/22 11:33 Dose: 5 mg Hydroxyzine HCl (Hydroxyzine Hcl 25 Mg Tablet) 25 mg PO BEDTIME PRN PRN Reason: Anxiety Hydroxyzine HCl (Hydroxyzine Hcl 25 Mg Tablet) 25 mg PO Q6H PRN PRN Reason: Anxiety Last Admin: 06/19/22 13:06 Dose: 25 mg [place] Carbonate ([place] Carbonate Er 300 Mg Tablet.Er) 600 mg PO BID [facility] Last Admin: 06/21/22 08:55 Dose: 600 mg Lorazepam (Lorazepam 1 Mg Tablet) 1 mg PO Q4H PRN PRN Reason: severe anxiety Last Admin: 06/19/22 17:42 Dose: 1 mg Lurasidone HCl (Lurasidone Hcl 20 Mg Tablet) 20 mg PO BEDTIME [facility] Last Admin: 06/20/22 22:13 Dose: 20 mg Magn[place] Hydroxide (Milk Of Magnesia 30 Ml Oral.Susp) 30 ml PO DAILY PRN PRN Reason: Constipation Last Admin: 06/19/22 09:17 Dose: 30 ml Trazodone HCl (Trazodone Hcl 50 Mg Tablet) 50 mg PO BEDTIME MRX1 PRN PRN Reason: Insomnia Last Admin: 06/17/22 23:35 Dose: 50 mg Allergies Allergies Allergy/AdvReac Type Severity Reaction Status Date / Time buspirone [From BUSPAR] Allergy Unknown RASH Unverified 11/25/19 19:49 Assessment & Plan Assessment & Plan (1) Schizophrenia: Status: Acute Code(s): F20.9 - Schizophrenia, unspecified Plan presents with psychotic symptoms in the context of medication non adherence and psychosocial stressors. has had multiple medication trials in the past. Is open to Haldol, which she reports not being given on a regular basis but this was helpful when given as needed in the past. Will therefore order Haldol along with Benadryl to minimize EPS as per patient request. may consider long-acting injectable, which patient has never been on 06/16/2022: Discontinue daytime Haldol dosing and maintain nighttime Haldol with Benadryl 06/17: presentation c/w skyler, pt reports good response to lithium in the past. restart lithium at 450 mg BID. 06/18: no gross change from yesterday. asking to DC haldol and start latuda, which is done. asking for PRN for anxiety, agrees to ativan 1 mg Q4H PRN. 3- day up tomorrow. 06/19: rescinded 3-day notice yesterday. increase lithium to 600 BID due to ongoing skyler, albeit improved. 06/20: continue current mgmt. attempt to have pt increase HS latuda to 40 mg. check lithium level friday. 06/21: patient remains manic, hyperverbal, perseverative on delusional ideas ab out her genitalia; also focused on history of eating disorder. Patient currently refuses to increase Latuda worried about long-term side effects. -continue current treatment plan; will sign out to weekend provider to see if patient changes her mind about increasing Latuda. Patient educated on: diagnosis and medication risk/benefits Informed Consent: understands, does not understand and further education needed Reason for contiued inpatient stay Substantial Risk for: inability to function Time Spent With Patient Time: Total time managing care of this patient today ____ minutes.
[2022-06-21] MEDS: hydrOXYzine HCL 25 MG TABLET PO (10:36)
[2022-06-21 20:25] VITALS: BP 114/71; PULSE 86; RESP 18; TEMP 36.8; O2SAT 100
[2022-06-21] MEDS: Lurasidone HCl 20 MG TABLET PO (22:09)
[2022-06-21] MEDS: diphenhydrAMINE HCL 25 MG CAPSULE 50 MG PO (22:09)
[2022-06-22] MEDS: hydrOXYzine HCL 25 MG TABLET PO (04:05)
[2022-06-22] MEDS: Lithium Carbonate ER 300 MG TABLET.ER 600 MG PO ×2 (08:44→22:55)
[2022-06-22] MEDS: Acetaminophen 325 MG TABLET 975 MG PO (08:44)
[2022-06-22] MEDS: Docusate Sodium 100 MG CAPSULE PO ×2 (08:45→22:55)
[2022-06-22 10:25] VITALS: BP 104/68; PULSE 82; RESP 18; TEMP 36.7; O2SAT 100
--- NOTE | 2022-06-22 18:32 | HO.PSYCHPN ---
Subjective Subjective Date of Service: 06/22/22 Reason For Visit: Psychosis Interim History: Patient seen. Chart reviewed. Case discussed with RN. Patient requesting motrin for headeache and vaginal pain. 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 Wants to see mattress and boxsprings supervisor but only if it is a trauma informed provider. Reports some sleep disturbance but also states that she dreamed last night. Energy level is medium. This evening is pacing the halls with headphones on. Medication Compliance: Yes Side effects from medications: No Attending Groups: Yes Review of Systems Acute medical concerns: No Mental Status Exam Mental Status Exam Patient Appearance: Well Grooomed Patient Orientation: Situation Level of Consciousness: Alert Patient Behavior: Guarded, Good Eye Contact and Pacing Mood Description: Apprehensive Affect Description: Anxious Patient Cognition Impaired: No Ability to Follow Directions: Good Speech Pattern: Clear Memory Description: Intact Hallucinations: None Delusions: Paranoid Ideation Thought Process: Linear Thought Content: positive for Linear and positive for Perseveration Depressive Symptoms: Difficulty Sleeping Judgement: Fair Diagnostics Vital Signs (24Hr): Vital Signs - 24 hr 06/21/22 20:25 06/22/22 10:25 Temperature 98.2 F 98.1 F Pulse Rate 86 82 Respiratory Rate 18 18 Blood Pressure 114/71 104/68 Pulse Oximetry 100 100 Oxygen Delivery Method Room Air Room Air BMI result Body Mass Index 29.9 Labs 06/14/22 18:41 06/16/22 06:21 Medications Medications Current Medications Acetaminophen (Acetaminophen 325 Mg Tablet) 975 mg PO Q6H PRN PRN Reason: Headache/Pain Mild Scale (1-3) Last Admin: 06/22/22 08:44 Dose: 975 mg Al Hydroxide/Mg Hydroxide (Magnesium Hydrox/Alum Hydrox 30 Ml Oral.Susp) 30 ml PO Q6H PRN PRN Reason: Heartburn/Nausea Diphenhydramine HCl (Diphenhydramine Hcl 25 Mg Capsule) 50 mg PO BEDTIME [facility] Last Admin: 06/21/22 22:09 Dose: 50 mg Diphenhydramine HCl (Diphenhydramine Hcl 25 Mg Capsule) 25 mg PO Q4H PRN PRN Reason: akathisia Last Admin: 06/18/22 11:33 Dose: 25 mg Docusate Sodium (Docusate Sodium 100 Mg Capsule) 100 mg PO BID [facility] Last Admin: 06/22/22 08:45 Dose: 100 mg Haloperidol (Haloperidol 5 Mg Tablet) 5 mg PO TID PRN PRN Reason: pychosis Last Admin: 06/18/22 11:33 Dose: 5 mg Hydroxyzine HCl (Hydroxyzine Hcl 25 Mg Tablet) 25 mg PO BEDTIME PRN PRN Reason: Anxiety Hydroxyzine HCl (Hydroxyzine Hcl 25 Mg Tablet) 25 mg PO Q6H PRN PRN Reason: Anxiety Last Admin: 06/22/22 04:05 Dose: 25 mg [place] Carbonate ([place] Carbonate Er 300 Mg Tablet.Er) 600 mg PO BID [facility] Last Admin: 06/22/22 08:44 Dose: 600 mg Lorazepam (Lorazepam 1 Mg Tablet) 1 mg PO Q4H PRN PRN Reason: severe anxiety Last Admin: 06/19/22 17:42 Dose: 1 mg Lurasidone HCl (Lurasidone Hcl 20 Mg Tablet) 20 mg PO BEDTIME [facility] Last Admin: 06/21/22 22:09 Dose: 20 mg Magn[place] Hydroxide (Milk Of Magnesia 30 Ml Oral.Susp) 30 ml PO DAILY PRN PRN Reason: Constipation Last Admin: 06/19/22 09:17 Dose: 30 ml Trazodone HCl (Trazodone Hcl 50 Mg Tablet) 50 mg PO BEDTIME MRX1 PRN PRN Reason: Insomnia Last Admin: 06/17/22 23:35 Dose: 50 mg Allergies Allergies Allergy/AdvReac Type Severity Reaction Status Date / Time buspirone [From BUSPAR] Allergy Unknown RASH Unverified 11/25/19 19:49 Assessment & Plan Assessment & Plan (1) Schizophrenia: Status: Acute Code(s): F20.9 - Schizophrenia, unspecified Assessment and Plan: 06/22: no medication changes. [place] level friday Plan presents with psychotic symptoms in the context of medication non adherence and psychosocial stressors. has had multiple medication trials in the past. Is open to Haldol, which she reports not being given on a regular basis but this was helpful when given as needed in the past. Will therefore order Haldol along with Benadryl to minimize EPS as per patient request. may consider long-acting injectable, which patient has never been on 06/16/2022: Discontinue daytime Haldol dosing and maintain nighttime Haldol with Benadryl 06/17: presentation c/w skyler, pt reports good response to lithium in the past. restart lithium at 450 mg BID. 06/18: no gross change from yesterday. asking to DC haldol and start latuda, which is done. asking for PRN for anxiety, agrees to ativan 1 mg Q4H PRN. 3-day up tomorrow. 06/19: rescinded 3-day notice yesterday. increase lithium to 600 BID due to ongoing skyler, albeit improved. 06/20: continue current mgmt. attempt to have pt increase HS latuda to 40 mg. check lithium level friday. Reason for continued inpatient stay Substantial Risk for: inability to function Time Spent With Patient Time: Total time managing care of this patient today ____ minutes.
[2022-06-22 22:30] VITALS: BP 120/78; PULSE 82; RESP 18; TEMP 36.4; O2SAT 95
[2022-06-22] MEDS: Lurasidone HCl 20 MG TABLET PO (22:55)
[2022-06-22] MEDS: diphenhydrAMINE HCL 25 MG CAPSULE 50 MG PO (22:55)
[2022-06-23] MEDS: LORazepam 1 MG TABLET PO (00:17)
[2022-06-23 08:02] LABS: Lithium 1.09 mmol/L (0.60-1.20)
[2022-06-23] MEDS: Acetaminophen 325 MG TABLET 975 MG PO (08:36)
[2022-06-23] MEDS: Docusate Sodium 100 MG CAPSULE PO ×2 (08:36→22:29)
[2022-06-23] MEDS: Lithium Carbonate ER 300 MG TABLET.ER 600 MG PO ×2 (08:36→22:28)
[2022-06-23 09:13] VITALS: BP 116/68; PULSE 81; RESP 20; TEMP 36.4; O2SAT 99
[2022-06-23] MEDS: Milk of Magnesia 30 ML ORAL.SUSP PO (12:17)
--- NOTE | 2022-06-23 12:54 | HO.PSYCHPN ---
Subjective Subjective Date of Service: 06/23/22 Reason For Visit: Psychosis Subjective Notes: Conditional Voluntary Interim History: Patient seen, chart reviewed. Case discussed with RN. Remains preoccupied with gynecologic trauma. Stating that when she has traumatic pelvic exam that she felt scissoring pain and that her genitals were mutilated at that time. Motrin not continued due to patient being on ltihium. Medication Compliance: Yes Side effects from medications: No Attending Groups: Yes Mental Status Exam Mental Status Exam Patient Appearance: Well Grooomed Level of Consciousness: Alert Patient Behavior: Appropriate and Good Eye Contact Mood Description: Anxious ( worried ) Affect Description: Constricted and Apprehensive Patient Cognition Impaired: No Speech Pattern: Clear Memory Description: Intact Hallucinations: None Delusions: Paranoid Ideation Thought Process: Goal Oriented Thought Content: positive for Perseveration Judgement: Fair Diagnostics Vital Signs (24Hr): Vital Signs - 24 hr 06/22/22 22:30 06/23/22 09:13 Temperature 97.6 F 97.5 F Pulse Rate 82 81 Respiratory Rate 18 20 Blood Pressure 120/78 116/68 Pulse Oximetry 95 99 Oxygen Delivery Method Room Air Room Air BMI result Body Mass Index 29.9 Labs 06/14/22 18:41 06/16/22 06:21 Labs: Laboratory Results - last 48 hr 06/23/22 07:29 [place] 1.09 Medications Medications Current Medications Acetaminophen (Acetaminophen 325 Mg Tablet) 975 mg PO Q6H PRN PRN Reason: Headache/Pain Mild Scale (1-3) Last Admin: 06/23/22 08:36 Dose: 975 mg Al Hydroxide/Mg Hydroxide (Magnesium Hydrox/Alum Hydrox 30 Ml Oral.Susp) 30 ml PO Q6H PRN PRN Reason: Heartburn/Nausea Diphenhydramine HCl (Diphenhydramine Hcl 25 Mg Capsule) 50 mg PO BEDTIME TALIB Last Admin: 06/22/22 22:55 Dose: 50 mg Diphenhydramine HCl (Diphenhydramine Hcl 25 Mg Capsule) 25 mg PO Q4H PRN PRN Reason: akathisia Last Admin: 06/18/22 11:33 Dose: 25 mg Docusate Sodium (Docusate Sodium 100 Mg Capsule) 100 mg PO BID TALIB Last Admin: 06/23/22 08:36 Dose: 100 mg Haloperidol (Haloperidol 5 Mg Tablet) 5 mg PO TID PRN PRN Reason: pychosis Last Admin: 06/18/22 11:33 Dose: 5 mg Hydroxyzine HCl (Hydroxyzine Hcl 25 Mg Tablet) 25 mg PO BEDTIME PRN PRN Reason: Anxiety Hydroxyzine HCl (Hydroxyzine Hcl 25 Mg Tablet) 25 mg PO Q6H PRN PRN Reason: Anxiety Last Admin: 06/22/22 04:05 Dose: 25 mg Ibuprofen (Ibuprofen 400 Mg Tablet) 400 mg PO Q6H PRN PRN Reason: headache or pelvic pain [place] Carbonate ([place] Carbonate Er 300 Mg Tablet.Er) 600 mg PO BID TALIB Last Admin: 06/23/22 08:36 Dose: 600 mg Lurasidone HCl (Lurasidone Hcl 20 Mg Tablet) 20 mg PO BEDTIME TALIB Last Admin: 06/22/22 22:55 Dose: 20 mg Magnesium Hydroxide (Milk Of Magnesia 30 Ml Oral.Susp) 30 ml PO DAILY PRN PRN Reason: Constipation Last Admin: 06/23/22 12:17 Dose: 30 ml Trazodone HCl (Trazodone Hcl 50 Mg Tablet) 50 mg PO BEDTIME MRX1 PRN PRN Reason: Insomnia Last Admin: 06/17/22 23:35 Dose: 50 mg Allergies Allergies Allergy/AdvReac Type Severity Reaction Status Date / Time buspirone [From BUSPAR] Allergy Unknown RASH Unverified 11/25/19 19:49 Assessment & Plan Assessment & Plan (1) Schizophrenia: Status: Acute Code(s): F20.9 - Schizophrenia, unspecified Assessment and Plan: 06/22: no medication changes. [place] level friday Plan presents with psychotic symptoms in the context of medication non adherence and psychosocial stressors. has had multiple medication trials in the past. Is open to Haldol, which she reports not being given on a regular basis but this was helpful when given as needed in the past. Will therefore order Haldol along with Benadryl to minimize EPS as per patient request. may consider long-acting injectable, which patient has never been on 06/16/2022: Discontinue daytime Haldol dosing and maintain nighttime Haldol with Benadryl 06/17: presentation c/w skyler, pt reports good response to lithium in the past. restart lithium at 450 mg BID. 06/18: no gross change from yesterday. asking to DC haldol and start latuda, which is done. asking for PRN for anxiety, agrees to ativan 1 mg Q4H PRN. 3-day up tomorrow. 06/19: rescinded 3-day notice yesterday. increase lithium to 600 BID due to ongoing skyler, albeit improved. 06/20: continue current mgmt. attempt to have pt increase HS latuda to 40 mg. check lithium level friday. 06/22: no med changes, lithium level friday 06/23:increase latuda to 40 mg, lithium level tomorrow Reason for continued inpatient stay Substantial Risk for: inability to function Time Spent With Patient Time: Total time managing care of this patient today ____ minutes.
[2022-06-23 19:35] VITALS: BP 121/78; PULSE 94; RESP 18; TEMP 36.6; O2SAT 98
--- NOTE | 2022-06-23 21:03 | PC.NURSE ---
Soraida remains pleasant and cooperative. she states that her depression and anxiety have improved but, that she feels she is continuing to hgave difficulty with her cognition although she states that it is improving. no c/o auditory/visual hallucinations. denies suicidal/homicidal ideation she is social with peers and remains moderately intrussive. no behavioral concerns at this time monitor for safety, continue Plan of Care
[2022-06-23] MEDS: Lurasidone HCl 40 MG TABLET PO (22:29)
[2022-06-23] MEDS: diphenhydrAMINE HCL 25 MG CAPSULE 50 MG PO (22:29)
[2022-06-24 06:00] VITALS: BP 110/55; PULSE 74; RESP 18; TEMP 36.4; O2SAT 99
[2022-06-24] MEDS: Docusate Sodium 100 MG CAPSULE PO ×2 (08:37→22:31)
[2022-06-24] MEDS: Lithium Carbonate ER 300 MG TABLET.ER 600 MG PO ×2 (08:37→22:31)
[2022-06-24 09:25] LABS: Lithium 0.86 mmol/L (0.60-1.20)
--- NOTE | 2022-06-24 14:10 | HO.PSYCHPN ---
Subjective Subjective Date of Service: 06/24/22 Reason For Visit: Psychosis Interim History: Running in the [place] with bright affect stating she is tring to get exercise. Continues to smile while talking about concerns about her health. 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 States she was diagnosed with polycystic ovaries as a teenager. Medication Compliance: Yes Side effects from medications: No Attending Groups: Intermittent Review of Systems Acute medical concerns: No Mental Status Exam Mental Status Exam Patient Appearance: Unkempt Level of Consciousness: Alert Patient Behavior: Hyperactive, Distractible and Impulsive Mood Description: Expansive Affect Description: Cheerful Patient Cognition Impaired: No Speech Pattern: Rapid Hallucinations: None Delusions: Paranoid Ideation Thought Process: Racing Thought Content: positive for Preoccupation and positive for Disorganized Diagnostics Vital Signs (24Hr): Vital Signs - 24 hr 06/23/22 19:35 06/24/22 06:00 Temperature 97.8 F 97.6 F Pulse Rate 94 74 Respiratory Rate 18 18 Blood Pressure 121/78 110/55 L Pulse Oximetry 98 99 Oxygen Delivery Method Room Air Room Air BMI result Body Mass Index 29.9 Labs 06/14/22 18:41 06/16/22 06:21 Labs: Laboratory Results - last 48 hr 06/23/22 06/24/22 07:29 08:22 [place] 1.09 0.86 Medications Medications Current Medications Acetaminophen (Acetaminophen 325 Mg Tablet) 975 mg PO Q6H PRN PRN Reason: Headache/Pain Mild Scale (1-3) Last Admin: 06/23/22 08:36 Dose: 975 mg Al Hydroxide/Mg Hydroxide (Magnesium Hydrox/Alum Hydrox 30 Ml Oral.Susp) 30 ml PO Q6H PRN PRN Reason: Heartburn/Nausea Diphenhydramine HCl (Diphenhydramine Hcl 25 Mg Capsule) 50 mg PO BEDTIME TALIB Last Admin: 06/23/22 22:29 Dose: 50 mg Diphenhydramine HCl (Diphenhydramine Hcl 25 Mg Capsule) 25 mg PO Q4H PRN PRN Reason: akathisia Last Admin: 06/18/22 11:33 Dose: 25 mg Docusate Sodium (Docusate Sodium 100 Mg Capsule) 100 mg PO BID TALIB Last Admin: 06/24/22 08:37 Dose: 100 mg Haloperidol (Haloperidol 5 Mg Tablet) 5 mg PO TID PRN PRN Reason: pychosis Last Admin: 06/18/22 11:33 Dose: 5 mg Hydroxyzine HCl (Hydroxyzine Hcl 25 Mg Tablet) 25 mg PO BEDTIME PRN PRN Reason: Anxiety Hydroxyzine HCl (Hydroxyzine Hcl 25 Mg Tablet) 25 mg PO Q6H PRN PRN Reason: Anxiety Last Admin: 06/22/22 04:05 Dose: 25 mg [place] Carbonate ([place] Carbonate Er 300 Mg Tablet.Er) 600 mg PO BID TALIB Last Admin: 06/24/22 08:37 Dose: 600 mg Lurasidone HCl (Lurasidone Hcl 40 Mg Tablet) 40 mg PO BEDTIME TALIB Last Admin: 06/23/22 22:29 Dose: 40 mg Magnesium Hydroxide (Milk Of Magnesia 30 Ml Oral.Susp) 30 ml PO DAILY PRN PRN Reason: Constipation Last Admin: 06/23/22 12:17 Dose: 30 ml Trazodone HCl (Trazodone Hcl 50 Mg Tablet) 50 mg PO BEDTIME MRX1 PRN PRN Reason: Insomnia Last Admin: 06/17/22 23:35 Dose: 50 mg Allergies Allergies Allergy/AdvReac Type Severity Reaction Status Date / Time buspirone [From BUSPAR] Allergy Unknown RASH Unverified 11/25/19 19:49 Assessment & Plan Assessment & Plan (1) Schizophrenia: Status: Acute Code(s): F20.9 - Schizophrenia, unspecified Assessment and Plan: 06/22: no medication changes. [place] level friday Plan presents with psychotic symptoms in the context of medication non adherence and psychosocial stressors. has had multiple medication trials in the past. Is open to Haldol, which she reports not being given on a regular basis but this was helpful when given as needed in the past. Will therefore order Haldol along with Benadryl to minimize EPS as per patient request. may consider long-acting injectable, which patient has never been on 06/16/2022: Discontinue daytime Haldol dosing and maintain nighttime Haldol with Benadryl 06/17: presentation c/w skyler, pt reports good response to lithium in the past. restart lithium at 450 mg BID. 06/18: no gross change from yesterday. asking to DC haldol and start latuda, which is done. asking for PRN for anxiety, agrees to ativan 1 mg Q4H PRN. 3-day up tomorrow. 06/19: rescinded 3-day notice yesterday. increase lithium to 600 BID due to ongoing skyler, albeit improved. 06/20: continue current mgmt. attempt to have pt increase HS latuda to 40 mg. check lithium level friday [place]. 06/22: no med changes, lithium level friday 06/23:increase latuda to 40 mg, lithium level tomorrow 06/24:lithium level= 0.86, no med changes Reason for continued inpatient stay Substantial Risk for: inability to function Time Spent With Patient Time: Total time managing care of this patient today ____ minutes.
[2022-06-24 20:22] VITALS: BP 138/81; PULSE 104; RESP 18; TEMP 36.3; O2SAT 99
[2022-06-24] MEDS: HaloperidoL 5 MG TABLET PO (22:31)
[2022-06-24] MEDS: Lurasidone HCl 40 MG TABLET PO (22:31)
[2022-06-24] MEDS: diphenhydrAMINE HCL 25 MG CAPSULE 50 MG PO (22:31)
[2022-06-25] MEDS: Lithium Carbonate ER 300 MG TABLET.ER 600 MG PO ×2 (09:01→22:17)
[2022-06-25] MEDS: Docusate Sodium 100 MG CAPSULE PO ×2 (09:01→22:18)
[2022-06-25] MEDS: Acetaminophen 325 MG TABLET 975 MG PO (10:45)
[2022-06-25] MEDS: Magnesium Hydrox/Alum Hydrox 30 ML ORAL.SUSP PO (10:46)
[2022-06-25 10:48] VITALS: BP 126/76; PULSE 99; RESP 18; TEMP 36.4; O2SAT 99
--- NOTE | 2022-06-25 12:55 | P.PNPSI_ITS ---
Subjective Subjective Date of Service: 06/25/22 Reason For Visit: Psychosis Interim History: met w/ patient; discussed with team pt still w/ pressured speech but much less so and she is now interruptible and able to have a give and take in conversation. Patient is no longer perseveratin g on gynecological concerns; she also says she was reminded by her mother that she has a history of PCOS and thinks that it is more likely her gynecological concerns are due to this history than anything else; patient does not express any delusional thinking in this area either. That said she would still like a gynecological exam as an outpatient due to history of intermittent citing some incontinence. Patient also is more able to explain her history of eating disorder which she said was most prominent during middle school years; she says this past fall she had a few binge eating episodes however denies any recent purging/restricting behaviors and now think she might not need to pursue ely tment of this kind. Discussed patient's admission and she says she came in because she had disorg anized skin confused thinking; discussed diagnosis of likely bipolar disorder which she agrees is probably the case. Patient reports history of multiple admissions, each with a similar presentation where she started not sleeping for several days, ending up disorganized and admitted to a psychiatric unit. Over the weekend patient agreed to increasing Latuda and says she has had no side effects since and agrees to continue at current dose; reviewed labs from lithium and patient agrees to remain on this as well. She reports trouble sleeping and asks for gabapentin at bedtime saying it helped in the past. Patient agrees that she should probably remain on the unit until she is sleeping through the night. Patient shares however that she normally talks fast and has done so since childhood. Patient gave verbal permission to talk with both her mother and her therapist. Discussed other history. 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 Mental Status Exam Mental Status Exam Narrative: Pt is alert and oriented; behavior is cooperative, still manic but less so; friendly; patient is not in distress; dressed in casual attire with adequate hygiene; mood is described as good and affect congruent, with more natural expressions; eye contact appropriate; Speech is pressured but less so and pt is more able to have a give and take in conversation; normal volume and prosody; some psychomotor agitation present as patient paces halls; thought process is still somewhat circumstantial but less so and also goal oriented; Thought content is about treatment; no longer perseverating, and no delusional ideas expressed; denies any SI/HI. Patient appears internally preoccupied; Patients insight and judgment are impaired but with significant improvement Diagnostics Vital Signs (24Hr): Vital Signs - 24 hr 06/24/22 20:22 06/25/22 10:48 Temperature 97.4 F 97.5 F Pulse Rate 104 H 99 Respiratory Rate 18 18 Blood Pressure 138/81 126/76 Pulse Oximetry 99 99 Oxygen Delivery Method Room Air Room Air BMI result Body Mass Index 29.9 Labs 06/14/22 18:41 06/16/22 06:21 Labs: Laboratory Results - last 48 hr 06/24/22 08:22 [place] 0.86 Medications Medications Current Medications Acetaminophen (Acetaminophen 325 Mg Tablet) 975 mg PO Q6H PRN PRN Reason: Headache/Pain Mild Scale (1-3) Last Admin: 06/25/22 10:45 Dose: 975 mg Al Hydroxide/Mg Hydroxide (Magnesium Hydrox/Alum Hydrox 30 Ml Oral.Susp) 30 ml PO Q6H PRN PRN Reason: Heartburn/Nausea Last Admin: 06/25/22 10:46 Dose: 30 ml Diphenhydramine HCl (Diphenhydramine Hcl 25 Mg Capsule) 50 mg PO BEDTIME TALIB Last Admin: 06/24/22 22:31 Dose: 50 mg Diphenhydramine HCl (Diphenhydramine Hcl 25 Mg Capsule) 25 mg PO Q4H PRN PRN Reason: akathisia Last Admin: 06/18/22 11:33 Dose: 25 mg Docusate Sodium (Docusate Sodium 100 Mg Capsule) 100 mg PO BID [facility] Last Admin: 06/25/22 09:01 Dose: 100 mg Haloperidol (Haloperidol 5 Mg Tablet) 5 mg PO TID PRN PRN Reason: pychosis Last Admin: 06/24/22 22:31 Dose: 5 mg Hydroxyzine HCl (Hydroxyzine Hcl 25 Mg Tablet) 25 mg PO BEDTIME PRN PRN Reason: Anxiety Hydroxyzine HCl (Hydroxyzine Hcl 25 Mg Tablet) 25 mg PO Q6H PRN PRN Reason: Anxiety Last Admin: 06/22/22 04:05 Dose: 25 mg [place] Carbonate ([place] Carbonate Er 300 Mg Tablet.Er) 600 mg PO BID TALIB Last Admin: 06/25/22 09:01 Dose: 600 mg Lurasidone HCl (Lurasidone Hcl 40 Mg Tablet) 40 mg PO BEDTIME TALIB Last Admin: 06/24/22 22:31 Dose: 40 mg [place] Hydroxide (Milk Of Magnesia 30 Ml Oral.Susp) 30 ml PO DAILY PRN PRN Reason: Constipation Last Admin: 06/23/22 12:17 Dose: 30 ml Trazodone HCl (Trazodone Hcl 50 Mg Tablet) 50 mg PO BEDTIME MRX1 PRN PRN Reason: Insomnia Last Admin: 06/17/22 23:35 Dose: 50 mg Allergies Allergies Allergy/AdvReac Type Severity Reaction Status Date / Time buspirone [From BUSPAR] Allergy Unknown RASH Unverified 11/25/19 19:49 Assessment & Plan Assessment & Plan (1) Schizoaffective disorder, bipolar type: Status: Acute Code(s): F25.0 - Schizoaffective disorder, bipolar type Plan presents with psychotic symptoms in the context of medication non adherence and psychosocial stressors. has had multiple medication trials in the past. Is open to Haldol, which she reports not being given on a regular basis but this was helpful when given as needed in the past. Will therefore order Haldol along with Benadryl to minimize EPS as per patient request. may consider long-acting injectable, which patient has never been on Hospital course: 06/16/2022: Discontinue daytime Haldol dosing and maintain nighttime Haldol with Benadryl 06/17: presentation c/w skyler, pt reports good response to lithium in the past. restart lithium at 450 mg BID. 06/18: no gross change from yesterday. asking to DC haldol and start latuda, which is done. asking for PRN for anxiety, agrees to ativan 1 mg Q4H PRN. 3- day up tomorrow. 06/19: rescinded 3-day notice yesterday. increase lithium to 600 BID due to ongoing skyler, albeit improved. 06/20: continue current mgmt. attempt to have pt increase HS latuda to 40 mg. check lithium level friday [place]. 06/22: no med changes, lithium level wednesday 06/21:? patient remains manic, hyperverbal, perseverative on delusional ideas about her genitalia; also focused on history of eating disorder.? Patient currently refuses to increase Latuda worried about long-term side effects. -continue current treatment plan; will sign out to weekend provider to see if patient changes her mind about increasing Latuda. 06/23:increase latuda to 40 mg, lithium level tomorrow 06/24:lithium level= 0.86, no med changes 06/25 patient remains hypomanic however symptoms and insight have both improved pt still w/ pressured speech but much less so and she is now interruptible and able to have a give and take in conversation. Patient is no longer perseverating on gynecological concerns; she also says she was reminded by her mother that she has a history of PCOS and thinks that it is more likely her gynecological concerns are due to this history than anything else; patient does not express any delusional thinking in this area either. That said she would still like a gynecological exam as an outpatient due to history of intermittent citing some incontinence. Patient also is more able to explain her history of eating disorder which she said was most prominent during middle school years; she says this past fall she had a few binge eating episodes however denies any recent purging/restricting behaviors and now think she might not need to pursue treatment of this kind. Discussed patient's admission and she says she came in because she had disorganized skin confused thinking; discussed diagnosis of likely bipolar disorder which she agrees is probably the case. Patient reports history of multiple admissions, each with a similar presentation where she started not sleeping for several days, ending up disorganized and admitted to a psychiatric unit. Over the weekend patient agreed to increasing Latuda and says she has had no side effects since and agrees to continue at current dose; reviewed labs from lithium and patient agrees to remain on this as well. She reports trouble sleeping and asks for gabapentin at bedtime saying it helped in the past. Patient agrees that she should probably remain on the unit until she is sleeping through the night. -will change diagnosis to schizoaffective disorder, bipolar type with a rule out for bipolar disorder; may also have PTSD as she refers to wanting reproductive surgeon who is trauma informed -patient is still manic/hypomanic and so hesitate to had any new diagnoses, however she does have some symptoms similar to ASD; Plan: CV Q 15 minute checks Continue lithium 600 mg b.i.d.; levels within normal; BUN creatinine WNL Continue Latuda 40 mg q.h.s. Start gabapentin 200 mg q.h.s. for insomnia, with 100 mg as a repeat dose DC Haldol p.r.n. at patient's request Will seek collateral as patient has given permission to call both her mother and therapist Patient educated on: diagnosis, medication risk/benefits and therapeutic strategies Informed Consent: understands, does not understand and further education needed Reason for continued inpatient stay Substantial Risk for: rapid decompensation Time Spent With Patient Time: Total time managing care of this patient today ____ minutes.
[2022-06-25 22:14] VITALS: BP 118/79; PULSE 83; TEMP 36.6; O2SAT 97
[2022-06-25] MEDS: Lurasidone HCl 40 MG TABLET PO (22:18)
[2022-06-25] MEDS: Gabapentin 100 MG CAPSULE 200 MG PO (22:18)
[2022-06-25] MEDS: Gabapentin 100 MG CAPSULE PO (23:33)
[2022-06-26 08:24] VITALS: BP 123/65; PULSE 101; RESP 18; TEMP 36.3; O2SAT 94
--- NOTE | 2022-06-26 08:31 | HO.PSYCHPN ---
Subjective Subjective Date of Service: 06/26/22 Reason For Visit: Psychosis Interim History: Met with patient; discussed with team Reports did not sleep very well last night and agrees to increase gabapentin. Remains hypomanic, overly flirtatious with male peers. Discussed more symptoms and patient alludes to possibility of auditory hallucinations, saying sometimes in the past month however she is vague about this and then talks about having intrusive thoughts. Chemical Machine Tender inquired further and patient said she does not want to talk about intrusive thoughts at this time. Later with female social work instructor patient shared some history of childhood trauma; patient also said she feels like she is being electronically raped. Discussed past medication trials: Trazodone:Activating Seroquel: Activating Abilify: More Lability Zyprexa: Weight gain; patient associates this medication with lapses in menses Mental Status Exam Mental Status Exam Narrative: Pt is alert and oriented; behavior is cooperative, still manic but less so; can be overly friendly, with some boundary issues; some oddness such as smiling or laughing and and then qualifying her reasons for doing so; patient is not in distress; dressed in casual attire with adequate hygiene; mood is described as good and affect congruent, with more natural expressions; eye contact appropriate; Speech is pressured but less so and pt is more able to have a give and take in conversation; normal volume and prosody; some psychomotor agitation present as patient paces halls; thought process is still somewhat circumstantial but less so and also goal oriented; Thought content is about treatment but also on intrusive thoughts; no longer perseverating on genitalia, however has some odd/delusional thinking; denies any SI/HI. Patient appears internally preoccupied and may have auditory hallucinations; Patients insight and judgment are impaired but improved Diagnostics Vital Signs (24Hr): Vital Signs - 24 hr 06/25/22 10:48 06/25/22 22:14 06/26/22 08:24 Temperature 97.5 F 97.8 F 97.3 F Pulse Rate 99 83 101 H Respiratory Rate 18 18 Blood Pressure 126/76 118/79 123/65 Pulse Oximetry 99 97 94 Oxygen Delivery Method Room Air Room Air Room Air BMI result Body Mass Index 29.9 Labs 06/14/22 18:41 06/16/22 06:21 Labs: Laboratory Results - last 48 hr 06/24/22 08:22 [place] 0.86 Medications Medications Current Medications Acetaminophen (Acetaminophen 325 Mg Tablet) 975 mg PO Q6H PRN PRN Reason: Headache/Pain Mild Scale (1-3) Last Admin: 06/25/22 10:45 Dose: 975 mg Al Hydroxide/Mg Hydroxide (Magnesium Hydrox/Alum Hydrox 30 Ml Oral.Susp) 30 ml PO Q6H PRN PRN Reason: Heartburn/Nausea Last Admin: 06/25/22 10:46 Dose: 30 ml Diphenhydramine HCl (Diphenhydramine Hcl 25 Mg Capsule) 50 mg PO BEDTIME TALIB Last Admin: 06/26/22 00:42 Dose: Not Given Diphenhydramine HCl (Diphenhydramine Hcl 25 Mg Capsule) 25 mg PO Q4H PRN PRN Reason: akathisia Last Admin: 06/18/22 11:33 Dose: 25 mg Docusate Sodium (Docusate Sodium 100 Mg Capsule) 100 mg PO BID [facility] Last Admin: 06/25/22 22:18 Dose: 100 mg Gabapentin (Gabapentin 100 Mg Capsule) 200 mg PO BEDTIME TALIB Last Admin: 06/25/22 22:18 Dose: 200 mg Gabapentin (Gabapentin 100 Mg Capsule) 100 mg PO BEDTIME PRN PRN Reason: continued insomnia Last Admin: 06/25/22 23:33 Dose: 100 mg Hydroxyzine HCl (Hydroxyzine Hcl 25 Mg Tablet) 25 mg PO BEDTIME PRN PRN Reason: Anxiety Hydroxyzine HCl (Hydroxyzine Hcl 25 Mg Tablet) 25 mg PO Q6H PRN PRN Reason: Anxiety Last Admin: 06/22/22 04:05 Dose: 25 mg [place] Carbonate ([place] Carbonate Er 300 Mg Tablet.Er) 600 mg PO BID TALIB Last Admin: 06/25/22 22:17 Dose: 600 mg Lurasidone HCl (Lurasidone Hcl 40 Mg Tablet) 40 mg PO BEDTIME TALIB Last Admin: 06/25/22 22:18 Dose: 40 mg Magnesium Hydroxide (Milk Of Magnesia 30 Ml Oral.Susp) 30 ml PO DAILY PRN PRN Reason: Constipation Last Admin: 06/23/22 12:17 Dose: 30 ml Trazodone HCl (Trazodone Hcl 50 Mg Tablet) 50 mg PO BEDTIME MRX1 PRN PRN Reason: Insomnia Last Admin: 06/17/22 23:35 Dose: 50 mg Allergies Allergies Allergy/AdvReac Type Severity Reaction Status Date / Time buspirone [From BUSPAR] Allergy Unknown RASH Unverified 11/25/19 19:49 Assessment & Plan Assessment & Plan (1) Schizoaffective disorder, bipolar type: Status: Acute Code(s): F25.0 - Schizoaffective disorder, bipolar type Plan presents with psychotic symptoms in the context of medication non adherence and psychosocial stressors. has had multiple medication trials in the past. Is open to Haldol, which she reports not being given on a regular basis but this was helpful when given as needed in the past. Will therefore order Haldol along with Benadryl to minimize EPS as per patient request. may consider long-acting injectable, which patient has never been on Hospital course: 06/16/2022: Discontinue daytime Haldol dosing and maintain nighttime Haldol with Benadryl 06/17: presentation c/w sklyer, pt reports good response to lithium in the past. restart lithium at 450 mg BID. 06/18: no gross change from yesterday. asking to DC haldol and start latuda, which is done. asking for PRN for anxiety, agrees to ativan 1 mg Q4H PRN. 3-day up tomorrow. 06/19: rescinded 3-day notice yesterday. increase lithium to 600 BID due to ongoing skyler, albeit improved. 06/20: continue current mgmt. attempt to have pt increase HS latuda to 40 mg. check lithium level friday [facility]. 06/22: no med changes, lithium level wednesday 06/21:? patient remains manic, hyperverbal, perseverative on delusional ideas about her genitalia; also focused on history of eating disorder.? Patient currently refuses to increase Latuda worried about long-term side effects. -continue current treatment plan; will sign out to weekend provider to see if patient changes her mind about increasing Latuda. 06/23:increase latuda to 40 mg, lithium level tomorrow 06/24:lithium level= 0.86, no med changes 06/25 patient remains hypomanic however symptoms and insight have both improved pt still w/ pressured speech but much less so and she is now interruptible and able to have a give and take in conversation. Patient is no longer perseverating on gynecological concerns; she also says she was reminded by her mother that she has a history of PCOS and thinks that it is more likely her gynecological concerns are due to this history than anything else; patient does not express any delusional thinking in this area either. That said she would still like a gynecological exam as an outpatient due to history of intermittent citing some incontinence. Patient also is more able to explain her history of eating disorder which she said was most prominent during middle school years; she says this past fall she had a few binge eating episodes however denies any recent purging/restricting behaviors and now think she might not need to pursue treatment of this kind. Discussed patient's admission and she says she came in because she had disorganized skin confused thinking; discussed diagnosis of likely bipolar disorder which she agrees is probably the case. Patient reports history of multiple admissions, each with a similar presentation where she started not sleeping for several days, ending up disorganized and admitted to a psychiatric unit. Over the weekend patient agreed to increasing Latuda and says she has had no side effects since and agrees to continue at current dose; reviewed labs from lithium and patient agrees to remain on this as well. She reports trouble sleeping and asks for gabapentin at bedtime saying it helped in the past. Patient agrees that she should probably remain on the unit until she is sleeping through the night. -will change diagnosis to schizoaffective disorder, bipolar type with a rule out for bipolar disorder; may also have PTSD as she refers to wanting contracts law professor who is trauma informed -patient is still manic/hypomanic and so hesitate to had any new diagnoses, however she does have some symptoms similar to ASD; 06/26 remains improved, however still hypomanic, overly flirtatious, some rigid or concrete thinking, not sleeping well and with odd interpersonal interactions, smiling or laughing and and then qualifying her reasons for doing so. Social work trying to contact patient's mother (patient gave verbal permission to call her mother, therapist and medication provider) and collateral remains important as it is unclear patient's baseline. Plan: CV Q 15 minute checks Continue lithium 600 mg b.i.d.; levels within normal; BUN creatinine WNL Continue Latuda 40 mg q.h.s. Increase to gabapentin 400 mg q.h.s. for insomnia, with 100 mg as a repeat dose START Clonazepam 1mg qhs for insomnia DC Haldol p.r.n. at patient's request Will seek collateral as patient has given permission to call both her mother and therapist Patient educated on: diagnosis and medication risk/benefits Informed Consent: understands, does not understand and further education needed Reason for continued inpatient stay Substantial Risk for: rapid decompensation Time Spent With Patient Time: Total time managing care of this patient today ____ minutes.
[2022-06-26] MEDS: Acetaminophen 325 MG TABLET 975 MG PO (08:52)
[2022-06-26] MEDS: Lithium Carbonate ER 300 MG TABLET.ER 600 MG PO ×2 (08:52→22:32)
[2022-06-26] MEDS: Docusate Sodium 100 MG CAPSULE PO ×2 (08:52→22:31)
[2022-06-26 20:00] VITALS: BP 127/93; PULSE 99; RESP 16; TEMP 36.6; O2SAT 98
[2022-06-26] MEDS: Gabapentin 400 MG CAPSULE PO (22:31)
[2022-06-26] MEDS: Lurasidone HCl 40 MG TABLET PO (22:32)
[2022-06-26] MEDS: clonazePAM 1 MG TABLET PO (22:32)
[2022-06-26] MEDS: diphenhydrAMINE HCL 25 MG CAPSULE 50 MG PO (22:32)
[2022-06-27 07:00] VITALS: BMI 28.8
[2022-06-27 08:45] VITALS: BP 133/57; PULSE 93; RESP 20; TEMP 36.5; O2SAT 99
[2022-06-27] MEDS: Docusate Sodium 100 MG CAPSULE PO (08:47)
[2022-06-27] MEDS: Lithium Carbonate ER 300 MG TABLET.ER 600 MG PO (08:47)
--- NOTE | 2022-06-27 09:02 | P.PNPSI_ITS ---
Subjective Subjective Date of Service: 06/27/22 Reason For Visit: Psychosis Interim History: Met with patient; discussed with team Patient slept last night and feels gabapentin was helpful. Patient more calm, much more linear and able to have a given taking conversation. She remains foc used on wanting to talk about whether not she should go to an eating disorder clinic shares her past history with these struggles. There does not seem to be a current symptoms however. Patient shared that she continues to have intermittent auditory hallucinations but that they are not malicious and she does not want any increased medication for this. She also reports having intrusive thoughts and distinguishes them from the auditory hallucinations however she does not want to discuss. Zoo Caretaker broached the topic of ASD and patient said that she has wondered about this for years. Zoo Caretaker discussed how this can be a spectrum and some people can have some symptoms but not have the actual disorder to which patient understood and agreed. She shares how her difficulties in interpersonal relationships, understanding emotional cues, understanding when a person wants to stop talking or is not interested in the topic, sarcasm and jokes. Patient reports she used to rock back and forth to ca lm herself. She reports pacing the halls is for exercise; reports at baseline she always talks a lot and fairly quickly Mental Status Exam Mental Status Exam Narrative: Pt is alert and oriented; behavior is cooperative, much more calm; can be overly friendly, with some boundary issues; some oddness such as smiling or laughing and then qualifying her reasons for doing so; patient is not in distress; dressed in casual attire with adequate hygiene; mood is described as good and affect congruent, with more natural expressions; eye contact appropriate; Speech is mildly pressured but much less so and pt is more able to have a give and take in conversation; normal volume and prosody; perhaps some psychomotor agitation present as patient paces halls; thought process is still somewhat circumstantial but less so and also goal oriented; Thought content is about treatment, diagnoses, but also on intrusive thoughts; patient is no longer perseverating on genitalia and does not express any odd/delusional thinking; denies any SI/HI. Patient appears internally preoccupied and has intermittent auditory hallucinations; Patients insight and judgment are impaired but significantly i mproved Diagnostics Vital Signs (24Hr): Vital Signs - 24 hr 06/26/22 20:00 Temperature 97.8 F Pulse Rate 99 Respiratory Rate 16 Blood Pressure 127/93 H Pulse Oximetry 98 Oxygen Delivery Method Room Air BMI result Body Mass Index 29.9 Labs 06/14/22 18:41 06/16/22 06:21 Medications Medications Current Medications Acetaminophen (Acetaminophen 325 Mg Tablet) 975 mg PO Q6H PRN PRN Reason: Headache/Pain Mild Scale (1-3) Last Admin: 06/26/22 08:52 Dose: 975 mg Al Hydroxide/Mg Hydroxide (Magnesium Hydrox/Alum Hydrox 30 Ml Oral.Susp) 30 ml PO Q6H PRN PRN Reason: Heartburn/Nausea Last Admin: 06/25/22 10:46 Dose: 30 ml Clonazepam (Clonazepam 1 Mg Tablet) 1 mg PO BEDTIME TALIB Last Admin: 06/26/22 22:32 Dose: 1 mg Diphenhydramine HCl (Diphenhydramine Hcl 25 Mg Capsule) 50 mg PO BEDTIME TALIB Last Admin: 06/26/22 22:32 Dose: 50 mg Diphenhydramine HCl (Diphenhydramine Hcl 25 Mg Capsule) 25 mg PO Q4H PRN PRN Reason: akathisia Last Admin: 06/18/22 11:33 Dose: 25 mg Docusate Sodium (Docusate Sodium 100 Mg Capsule) 100 mg PO BID [facility] Last Admin: 06/27/22 08:47 Dose: 100 mg Gabapentin (Gabapentin 100 Mg Capsule) 100 mg PO BEDTIME PRN PRN Reason: continued insomnia Last Admin: 06/25/22 23:33 Dose: 100 mg Gabapentin (Gabapentin 400 Mg Capsule) 400 mg PO BEDTIME TALIB Last Admin: 06/26/22 22:31 Dose: 400 mg Hydroxyzine HCl (Hydroxyzine Hcl 25 Mg Tablet) 25 mg PO BEDTIME PRN PRN Reason: Anxiety Hydroxyzine HCl (Hydroxyzine Hcl 25 Mg Tablet) 25 mg PO Q6H PRN PRN Reason: Anxiety Last Admin: 06/22/22 04:05 Dose: 25 mg [place] Carbonate ([place] Carbonate Er 300 Mg Tablet.Er) 600 mg PO BID TALIB Last Admin: 06/27/22 08:47 Dose: 600 mg Lurasidone HCl (Lurasidone Hcl 40 Mg Tablet) 40 mg PO BEDTIME TALIB Last Admin: 06/26/22 22:32 Dose: 40 mg Magnesium Hydroxide (Milk Of Magnesia 30 Ml Oral.Susp) 30 ml PO DAILY PRN PRN Reason: Constipation Last Admin: 06/23/22 12:17 Dose: 30 ml Allergies Allergies Allergy/AdvReac Type Severity Reaction Status Date / Time buspirone [From BUSPAR] Allergy Unknown RASH Unverified 11/25/19 19:49 Assessment & Plan Assessment & Plan (1) Schizoaffective disorder, bipolar type: Status: Acute Code(s): F25.0 - Schizoaffective disorder, bipolar type Plan presents with psychotic symptoms in the context of medication non adherence and psychosocial stressors. has had multiple medication trials in the past. Is open to Haldol, which she reports not being given on a regular basis but this was helpful when given as needed in the past. Will therefore order Haldol along with Benadryl to minimize EPS as per patient request. may consider long-acting injectable, which patient has never been on Hospital course: 06/16/2022: Discontinue daytime Haldol dosing and maintain nighttime Haldol with Benadryl 06/17: presentation c/w skyler, pt reports good response to lithium in the past. restart lithium at 450 mg BID. 06/18: no gross change from yesterday. asking to DC haldol and start latuda, which is done. asking for PRN for anxiety, agrees to ativan 1 mg Q4H PRN. 3- day up tomorrow. 06/19: rescinded 3-day notice yesterday. increase lithium to 600 BID due to ongoing skyler, albeit improved. 06/20: continue current mgmt. attempt to have pt increase HS latuda to 40 mg. check lithium level friday [facility]. 06/22: no med changes, lithium level wednesday 06/21:? patient remains manic, hyperverbal, perseverative on delusional ideas about her genitalia; also focused on history of eating disorder.? Patient currently refuses to increase Latuda worried about long-term side effects. -continue current treatment plan; will sign out to weekend provider to see if patient changes her mind about increasing Latuda. 06/23:increase latuda to 40 mg, lithium level tomorrow 06/24:lithium level= 0.86, no med changes 06/25 patient remains hypomanic however symptoms and insight have both improved pt still w/ pressured speech but much less so and she is now interruptible and able to have a give and take in conversation. Patient is no longer perseverati ng on gynecological concerns; she also says she was reminded by her mother that she has a history of PCOS and thinks that it is more likely her gynecological concerns are due to this history than anything else; patient does not express any delusional thinking in this area either. That said she would still like a gynecological exam as an outpatient due to history of intermittent citing some incontinence. Patient also is more able to explain her history of eating disorder which she said was most prominent during middle school years; she says this past fall she had a few binge eating episodes however denies any recent purging/restricting behaviors and now think she might not need to pursue zulema atment of this kind. Discussed patient's admission and she says she came in because she had disor ganized skin confused thinking; discussed diagnosis of likely bipolar disorder which she agrees is probably the case. Patient reports history of multiple admissions, each with a similar presentation where she started not sleeping for several days, ending up disorganized and admitted to a psychiatric unit. Over the weekend patient agreed to increasing Latuda and says she has had no side effects since and agrees to continue at current dose; reviewed labs from lithium and patient agrees to remain on this as well. She reports trouble sleeping and asks for gabapentin at bedtime saying it helped in the past. Patient agrees that she should probably remain on the unit until she is sleeping through the night. -will change diagnosis to schizoaffective disorder, bipolar type with a rule out for bipolar disorder; may also have PTSD as she refers to wanting medical professionals who is trauma informed -patient is still manic/hypomanic and so hesitate to had any new diagnoses, however she does have some symptoms similar to ASD; 06/26 remains improved, however still hypomanic, overly flirtatious, some rigid or concrete thinking, not sleeping well and with odd interpersonal interactions, smiling or laughing and and then qualifying her reasons for doing so. Social work trying to contact patient's mother (patient gave verbal permission to call her mother, therapist and medication provider) and collateral remains important as it is unclear patient's baseline. 06/27 Patient slept last night and feels gabapentin was helpful. Patient more calm, much more linear and able to have a given taking conversation. She remains focused on wanting to talk about whether not she should go to an eating disorder clinic shares her past history with these struggles. There does not seem to be a current symptoms however. Patient shared that she continues to have intermittent auditory hallucinations but that they are not malicious and she does not want any increased medication for this. She also reports having intrusive thoughts and distinguishes them from the auditory hallucinations however she does not want to discuss. Zoo Caretaker broached the topic of ASD and patient said that she has wondered about this for years. Zoo Caretaker discussed how this can be a spectrum and some people can have some symptoms but not have the actual disorder to which patient understood and agreed. She shares how her difficulties in interpersonal relationships, understanding emotional cues, understanding when a person wants to stop talking or is not interested in the topic, sarcasm and jokes. Patient reports she used to rock back and forth to calm herself. She reports pacing the halls is for exercise; reports at baseline she always talks a lot and fairly quickly Plan: CV Q 15 minute checks Continue lithium 600 mg b.i.d.; levels within normal; BUN creatinine WNL Continue Latuda 40 mg q.h.s. Continue gabapentin 400 mg q.h.s. for insomnia, with 100 mg as a repeat dose Continue Clonazepam 1mg qhs for insomnia DC Haldol p.r.n. at patient's request Will seek collateral as patient has given permission to call both her mother and therapist Patient educated on: diagnosis, medication risk/benefits and therapeutic strategies Informed Consent: understands and further education needed Reason for continued inpatient stay Substantial Risk for: med/psych decompensation Time Spent With Patient Time: Total time managing care of this patient today ____ minutes.
[2022-06-28 00:15] VITALS: BP 133/85; PULSE 99; RESP 18; TEMP 36.7; O2SAT 96
[2022-06-28] MEDS: Gabapentin 400 MG CAPSULE PO ×2 (00:22→23:43)
[2022-06-28] MEDS: clonazePAM 1 MG TABLET PO ×2 (00:22→23:42)
[2022-06-28] MEDS: Docusate Sodium 100 MG CAPSULE PO ×3 (00:22→23:43)
[2022-06-28] MEDS: Lurasidone HCl 40 MG TABLET PO ×2 (00:22→23:42)
[2022-06-28] MEDS: Lithium Carbonate ER 300 MG TABLET.ER 600 MG PO ×3 (00:22→23:41)
[2022-06-28] MEDS: diphenhydrAMINE HCL 25 MG CAPSULE 50 MG PO ×2 (00:23→23:42)
[2022-06-28 09:30] VITALS: BP 118/74; PULSE 85; RESP 18; TEMP 36.6; O2SAT 100
[2022-06-28] MEDS: Acetaminophen 325 MG TABLET 975 MG PO (09:59)
[2022-06-28 18:00] VITALS: BP 120/73; PULSE 95; RESP 16; TEMP 36.5; O2SAT 97
--- NOTE | 2022-06-28 18:12 | HO.PSYCHPN ---
Subjective Subjective Date of Service: 06/28/22 Reason For Visit: Psychosis Interim History: Met with patient; discussed with team Patient remains much more stable, not expressing any delusional thinking; still talking about perhaps needing and eating disorder clinic however agrees to discuss this further with her outpatient providers as she does not currently have symptoms. 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 Patient slept again well last night. Mental Status Exam Mental Status Exam Narrative: Pt is alert and oriented; behavior is cooperative, much more calm; can be overly friendly, with some boundary issues; some oddness such as smiling or laughing and then qualifying her reasons for doing so; patient is not in distress; dressed in casual attire with adequate hygiene; mood is described as good and affect congruent, with more natural expressions; eye contact appropriate; Speech is mildly pressured but much less so and pt is more able to have a give and take in conversation; normal volume and prosody; perhaps some psychomotor agitation present as patient paces halls; thought process is still somewhat circumstantial but less so and also goal oriented; Thought content is about treatment, diagnoses, but also on intrusive thoughts; patient is no longer perseverating on genitalia and does not express any odd/delusional thinking; denies any SI/HI. Patient appears internally preoccupied and has intermittent auditory hallucinations; Patients insight and judgment are impaired but significantly improved Diagnostics Vital Signs (24Hr): Vital Signs - 24 hr 06/28/22 00:15 06/28/22 09:30 Temperature 98.0 F 97.9 F Pulse Rate 99 85 Respiratory Rate 18 18 Blood Pressure 133/85 118/74 Pulse Oximetry 96 100 Oxygen Delivery Method Room Air Room Air BMI result Body Mass Index 28.8 Labs 06/14/22 18:41 06/16/22 06:21 Medications Medications Current Medications Acetaminophen (Acetaminophen 325 Mg Tablet) 975 mg PO Q6H PRN PRN Reason: Headache/Pain Mild Scale (1-3) Last Admin: 06/28/22 09:59 Dose: 975 mg Al Hydroxide/Mg Hydroxide (Magnesium Hydrox/Alum Hydrox 30 Ml Oral.Susp) 30 ml PO Q6H PRN PRN Reason: Heartburn/Nausea Last Admin: 06/25/22 10:46 Dose: 30 ml Clonazepam (Clonazepam 1 Mg Tablet) 1 mg PO BEDTIME [facility] Last Admin: 06/28/22 00:22 Dose: 1 mg Diphenhydramine HCl (Diphenhydramine Hcl 25 Mg Capsule) 50 mg PO BEDTIME [facility] Last Admin: 06/28/22 00:23 Dose: 50 mg Diphenhydramine HCl (Diphenhydramine Hcl 25 Mg Capsule) 25 mg PO Q4H PRN PRN Reason: akathisia Last Admin: 06/18/22 11:33 Dose: 25 mg Docusate Sodium (Docusate Sodium 100 Mg Capsule) 100 mg PO BID [facility] Last Admin: 06/28/22 09:59 Dose: 100 mg Gabapentin (Gabapentin 100 Mg Capsule) 100 mg PO BEDTIME PRN PRN Reason: continued insomnia Last Admin: 06/25/22 23:33 Dose: 100 mg Gabapentin (Gabapentin 400 Mg Capsule) 400 mg PO BEDTIME [facility] Last Admin: 06/28/22 00:22 Dose: 400 mg Hydroxyzine HCl (Hydroxyzine Hcl 25 Mg Tablet) 25 mg PO BEDTIME PRN PRN Reason: Anxiety Hydroxyzine HCl (Hydroxyzine Hcl 25 Mg Tablet) 25 mg PO Q6H PRN PRN Reason: Anxiety Last Admin: 06/22/22 04:05 Dose: 25 mg [place] Carbonate ([place] Carbonate Er 300 Mg Tablet.Er) 600 mg PO BID [facility] Last Admin: 06/28/22 09:59 Dose: 600 mg Lurasidone HCl (Lurasidone Hcl 40 Mg Tablet) 40 mg PO BEDTIME [facility] Last Admin: 06/28/22 00:22 Dose: 40 mg Magnesium Hydroxide (Milk Of Magnesia 30 Ml Oral.Susp) 30 ml PO DAILY PRN PRN Reason: Constipation Last Admin: 06/23/22 12:17 Dose: 30 ml Allergies Allergies Allergy/AdvReac Type Severity Reaction Status Date / Time buspirone [From BUSPAR] Allergy Unknown RASH Unverified 11/25/19 19:49 Assessment & Plan Assessment & Plan (1) Schizoaffective disorder, bipolar type: Status: Acute Code(s): F25.0 - Schizoaffective disorder, bipolar type Plan presents with psychotic symptoms in the context of medication non adherence and psychosocial stressors. has had multiple medication trials in the past. Is open to Haldol, which she reports not being given on a regular basis but this was helpful when given as needed in the past. Will therefore order Haldol along with Benadryl to minimize EPS as per patient request. may consider long-acting injectable, which patient has never been on Hospital course: 06/16/2022: Discontinue daytime Haldol dosing and maintain nighttime Haldol with Benadryl 06/17: presentation c/w skyler, pt reports good response to lithium in the past. restart lithium at 450 mg BID. 06/18: no gross change from yesterday. asking to DC haldol and start latuda, which is done. asking for PRN for anxiety, agrees to ativan 1 mg Q4H PRN. 3-day up tomorrow. 06/19: rescinded 3-day notice yesterday. increase lithium to 600 BID due to ongoing skyler, albeit improved. 06/20: continue current mgmt. attempt to have pt increase HS latuda to 40 mg. check lithium level friday [facility]. 06/22: no med changes, lithium level wednesday 06/21:? patient remains manic, hyperverbal, perseverative on delusional ideas about her genitalia; also focused on history of eating disorder.? Patient currently refuses to increase Latuda worried about long-term side effects. -continue current treatment plan; will sign out to weekend provider to see if patient changes her mind about increasing Latuda. 06/23:increase latuda to 40 mg, lithium level tomorrow 06/24:lithium level= 0.86, no med changes 06/25 patient remains hypomanic however symptoms and insight have both improved pt still w/ pressured speech but much less so and she is now interruptible and able to have a give and take in conversation. Patient is no longer perseverating on gynecological concerns; she also says she was reminded by her mother that she has a history of PCOS and thinks that it is more likely her gynecological concerns are due to this history than anything else; patient does not express any delusional thinking in this area either. That said she would still like a gynecological exam as an outpatient due to history of intermittent citing some incontinence. Patient also is more able to explain her history of eating disorder which she said was most prominent during middle school years; she says this past fall she had a few binge eating episodes however denies any recent purging/restricting behaviors and now think she might not need to pursue treatment of this kind. Discussed patient's admission and she says she came in because she had disorganized skin confused thinking; discussed diagnosis of likely bipolar disorder which she agrees is probably the case. Patient reports history of multiple admissions, each with a similar presentation where she started not sleeping for several days, ending up disorganized and admitted to a psychiatric unit. Over the weekend patient agreed to increasing Latuda and says she has had no side effects since and agrees to continue at current dose; reviewed labs from lithium and patient agrees to remain on this as well. She reports trouble sleeping and asks for gabapentin at bedtime saying it helped in the past. Patient agrees that she should probably remain on the unit until she is sleeping through the night. -will change diagnosis to schizoaffective disorder, bipolar type with a rule out for bipolar disorder; may also have PTSD as she refers to wanting spiritual care coordinator who is trauma informed -patient is still manic/hypomanic and so hesitate to had any new diagnoses, however she does have some symptoms similar to ASD; 06/26 remains improved, however still hypomanic, overly flirtatious, some rigid or concrete thinking, not sleeping well and with odd interpersonal interactions, smiling or laughing and and then qualifying her reasons for doing so. Social work trying to contact patient's mother (patient gave verbal permission to call her mother, therapist and medication provider) and collateral remains important as it is unclear patient's baseline. 06/27 Patient slept last night and feels gabapentin was helpful. Patient more calm, much more linear and able to have a given taking conversation. She remains focused on wanting to talk about whether not she should go to an eating disorder clinic shares her past history with these struggles. There does not seem to be a current symptoms however. Patient shared that she continues to have intermittent auditory hallucinations but that they are not malicious and she does not want any increased medication for this. She also reports having intrusive thoughts and distinguishes them from the auditory hallucinations however she does not want to discuss. Pipeline Dispatch Operator broached the topic of ASD and patient said that she has wondered about this for years. Pipeline Dispatch Operator discussed how this can be a spectrum and some people can have some symptoms but not have the actual disorder to which patient understood and agreed. She shares how her difficulties in interpersonal relationships, understanding emotional cues, understanding when a person wants to stop talking or is not interested in the topic, sarcasm and jokes. Patient reports she used to rock back and forth to calm herself. She reports pacing the halls is for exercise; reports at baseline she always talks a lot and fairly quickly 06/28 patient remains stable; she is much improved and need collateral to assess whether not she is at baseline. Plan: CV Q 15 minute checks Continue lithium 600 mg b.i.d.; levels within normal; BUN creatinine WNL Continue Latuda 40 mg q.h.s. Continue gabapentin 400 mg q.h.s. for insomnia, with 100 mg as a repeat dose Continue Clonazepam 1mg qhs for insomnia DC Haldol p.r.n. at patient's request Will seek collateral as patient has given permission to call both her mother and therapist Patient educated on: diagnosis, medication risk/benefits and therapeutic strategies Informed Consent: understands and further education needed Reason for continued inpatient stay Substantial Risk for: stable for discharge Time Spent With Patient Time: Total time managing care of this patient today ____ minutes.
[2022-06-29 09:31] VITALS: BP 124/77; PULSE 72; RESP 18; TEMP 36.2; O2SAT 100
[2022-06-29] MEDS: Milk of Magnesia 30 ML ORAL.SUSP PO (09:34)
[2022-06-29] MEDS: Docusate Sodium 100 MG CAPSULE PO ×2 (09:34→22:33)
[2022-06-29] MEDS: Lithium Carbonate ER 300 MG TABLET.ER 600 MG PO ×2 (09:34→22:31)
--- NOTE | 2022-06-29 14:12 | HO.PSYCHPN ---
Subjective Subjective Date of Service: 06/29/22 Reason For Visit: Psychosis Subjective Notes: Conditional Voluntary Interim History: The nursing staff reported the patient has been pleasant, cooperative with brighter affect fully compliant with treatment. She denies suicidal ideation Ms. And a reynoso she slept after 23:00. On interview the patient denies new symptoms content with current regimen. Mental Status Exam Mental Status Exam Patient Appearance: Well Grooomed Patient Orientation: Person and Situation Level of Consciousness: Awake and Appropriate Patient Behavior: Guarded and Passive Mood Description: Calm Affect Description: Constricted Ability to Follow Directions: Good Speech Pattern: Clear Hallucinations: None Delusions: Not Present Thought Process: Linear Thought Content: positive for Circumstantial Judgement: Fair Diagnostics Vital Signs (24Hr): Vital Signs - 24 hr 06/28/22 18:00 06/29/22 09:31 Temperature 97.7 F 97.2 F Pulse Rate 95 72 Respiratory Rate 16 18 Blood Pressure 120/73 124/77 Pulse Oximetry 97 100 Oxygen Delivery Method Room Air Room Air BMI result Body Mass Index 28.8 Labs 06/14/22 18:41 06/16/22 06:21 Medications Medications Current Medications Acetaminophen (Acetaminophen 325 Mg Tablet) 975 mg PO Q6H PRN PRN Reason: Headache/Pain Mild Scale (1-3) Last Admin: 06/28/22 09:59 Dose: 975 mg Al Hydroxide/Mg Hydroxide (Magnesium Hydrox/Alum Hydrox 30 Ml Oral.Susp) 30 ml PO Q6H PRN PRN Reason: Heartburn/Nausea Last Admin: 06/25/22 10:46 Dose: 30 ml Clonazepam (Clonazepam 1 Mg Tablet) 1 mg PO BEDTIME [facility] Last Admin: 06/28/22 23:42 Dose: 1 mg Diphenhydramine HCl (Diphenhydramine Hcl 25 Mg Capsule) 50 mg PO BEDTIME [facility] Last Admin: 06/28/22 23:42 Dose: 50 mg Diphenhydramine HCl (Diphenhydramine Hcl 25 Mg Capsule) 25 mg PO Q4H PRN PRN Reason: akathisia Last Admin: 06/18/22 11:33 Dose: 25 mg Docusate Sodium (Docusate Sodium 100 Mg Capsule) 100 mg PO BID [facility] Last Admin: 06/29/22 09:34 Dose: 100 mg Gabapentin (Gabapentin 100 Mg Capsule) 100 mg PO BEDTIME PRN PRN Reason: continued insomnia Last Admin: 06/25/22 23:33 Dose: 100 mg Gabapentin (Gabapentin 400 Mg Capsule) 400 mg PO BEDTIME [facility] Last Admin: 06/28/22 23:43 Dose: 400 mg Hydroxyzine HCl (Hydroxyzine Hcl 25 Mg Tablet) 25 mg PO BEDTIME PRN PRN Reason: Anxiety Hydroxyzine HCl (Hydroxyzine Hcl 25 Mg Tablet) 25 mg PO Q6H PRN PRN Reason: Anxiety Last Admin: 06/22/22 04:05 Dose: 25 mg [place] Carbonate ([place] Carbonate Er 300 Mg Tablet.Er) 600 mg PO BID [facility] Last Admin: 06/29/22 09:34 Dose: 600 mg Lurasidone HCl (Lurasidone Hcl 40 Mg Tablet) 40 mg PO BEDTIME [facility] Last Admin: 06/28/22 23:42 Dose: 40 mg Magnesium Hydroxide (Milk Of Magnesia 30 Ml Oral.Susp) 30 ml PO DAILY PRN PRN Reason: Constipation Last Admin: 06/29/22 09:34 Dose: 30 ml Allergies Allergies Allergy/AdvReac Type Severity Reaction Status Date / Time buspirone [From BUSPAR] Allergy Unknown RASH Unverified 11/25/19 19:49 Assessment & Plan Assessment & Plan (1) Schizoaffective disorder, bipolar type: Status: Acute Code(s): F25.0 - Schizoaffective disorder, bipolar type Plan presents with psychotic symptoms in the context of medication non adherence and psychosocial stressors. has had multiple medication trials in the past. Is open to Haldol, which she reports not being given on a regular basis but this was helpful when given as needed in the past. Will therefore order Haldol along with Benadryl to minimize EPS as per patient request. may consider long-acting injectable, which patient has never been on Hospital course: 06/16/2022: Discontinue daytime Haldol dosing and maintain nighttime Haldol with Benadryl 06/17: presentation c/w skyler, pt reports good response to lithium in the past. restart lithium at 450 mg BID. 06/18: no gross change from yesterday. asking to DC haldol and start latuda, which is done. asking for PRN for anxiety, agrees to ativan 1 mg Q4H PRN. 3-day up tomorrow. 06/19: rescinded 3-day notice yesterday. increase lithium to 600 BID due to ongoing skyler, albeit improved. 06/20: continue current mgmt. attempt to have pt increase HS latuda to 40 mg. check lithium level friday [facility]. 06/22: no med changes, lithium level wednesday 06/21:? patient remains manic, hyperverbal, perseverative on delusional ideas about her genitalia; also focused on history of eating disorder.? Patient currently refuses to increase Latuda worried about long-term side effects. -continue current treatment plan; will sign out to weekend provider to see if patient changes her mind about increasing Latuda. 06/23:increase latuda to 40 mg, lithium level tomorrow 06/24:lithium level= 0.86, no med changes 06/25 patient remains hypomanic however symptoms and insight have both improved pt still w/ pressured speech but much less so and she is now interruptible and able to have a give and take in conversation. Patient is no longer perseverating on gynecological concerns; she also says she was reminded by her mother that she has a history of PCOS and thinks that it is more likely her gynecological concerns are due to this history than anything else; patient does not express any delusional thinking in this area either. That said she would still like a gynecological exam as an outpatient due to history of intermittent citing some incontinence. Patient also is more able to explain her history of eating disorder which she said was most prominent during middle school years; she says this past fall she had a few binge eating episodes however denies any recent purging/restricting behaviors and now think she might not need to pursue treatment of this kind. Discussed patient's admission and she says she came in because she had disorganized skin confused thinking; discussed diagnosis of likely bipolar disorder which she agrees is probably the case. Patient reports history of multiple admissions, each with a similar presentation where she started not sleeping for several days, ending up disorganized and admitted to a psychiatric unit. Over the weekend patient agreed to increasing Latuda and says she has had no side effects since and agrees to continue at current dose; reviewed labs from lithium and patient agrees to remain on this as well. She reports trouble sleeping and asks for gabapentin at bedtime saying it helped in the past. Patient agrees that she should probably remain on the unit until she is sleeping through the night. -will change diagnosis to schizoaffective disorder, bipolar type with a rule out for bipolar disorder; may also have PTSD as she refers to wanting diamond polisher who is trauma informed -patient is still manic/hypomanic and so hesitate to had any new diagnoses, however she does have some symptoms similar to ASD; 06/26 remains improved, however still hypomanic, overly flirtatious, some rigid or concrete thinking, not sleeping well and with odd interpersonal interactions, smiling or laughing and and then qualifying her reasons for doing so. Social work trying to contact patient's mother (patient gave verbal permission to call her mother, therapist and medication provider) and collateral remains important as it is unclear patient's baseline. Plan: CV Q 15 minute checks Continue lithium 600 mg b.i.d.; levels within normal; BUN creatinine WNL Continue Latuda 40 mg q.h.s. Increase to gabapentin 400 mg q.h.s. for insomnia, with 100 mg as a repeat dose START Clonazepam 1mg qhs for insomnia DC Haldol p.r.n. at patient's request Will seek collateral as patient has given permission to call both her mother and therapist Reason for continued inpatient stay Substantial Risk for: inability to function, rapid decompensation and med/psych decompensation Time Spent With Patient Time: Total time managing care of this patient today __20__ minutes.
[2022-06-29 20:25] VITALS: BP 122/83; PULSE 89; RESP 16; TEMP 36.7; O2SAT 98
[2022-06-29] MEDS: clonazePAM 1 MG TABLET PO (22:32)
[2022-06-29] MEDS: Lurasidone HCl 40 MG TABLET PO (22:32)
[2022-06-29] MEDS: Gabapentin 400 MG CAPSULE PO (22:32)
[2022-06-29] MEDS: diphenhydrAMINE HCL 25 MG CAPSULE 50 MG PO (22:33)
[2022-06-30] MEDS: Lithium Carbonate ER 300 MG TABLET.ER 600 MG PO ×2 (08:51→22:52)
[2022-06-30] MEDS: Docusate Sodium 100 MG CAPSULE PO ×2 (08:51→22:53)
[2022-06-30 08:55] VITALS: BP 121/91; PULSE 80; RESP 18; TEMP 36.7; O2SAT 99
--- NOTE | 2022-06-30 10:56 | P.PNPSI_ITS ---
Subjective Subjective Date of Service: 06/30/22 Reason For Visit: Psychosis Subjective Notes: Conditional Voluntary Interim History: The nursing staff reported the patient had been compliant with treatment, no side effects. On interview the patient reports that she is doing fine a little anxious but able to cope with stressors. Mental Status Exam Mental Status Exam Patient Appearance: Well Grooomed and Appropriate Patient Orientation: Person and Situation Level of Consciousness: Awake and Appropriate Patient Behavior: Guarded and Passive Mood Description: Calm Affect Description: Constricted Patient Cognition Impaired: Yes Ability to Follow Directions: Good Speech Pattern: Clear Hallucinations: None Delusions: Not Present Thought Process: Distracted and Evasive Thought Content: positive for [place] and positive for Circumstantial Judgement: Fair Diagnostics Vital Signs (24Hr): Vital Signs - 24 hr 06/29/22 20:25 06/30/22 08:55 Temperature 98.1 F 98.0 F Pulse Rate 89 80 Respiratory Rate 16 18 Blood Pressure 122/83 121/91 H Pulse Oximetry 98 99 Oxygen Delivery Method Room Air Room Air BMI result Body Mass Index 28.8 Labs 06/14/22 18:41 06/16/22 06:21 Medications Medications Current Medications Acetaminophen (Acetaminophen 325 Mg Tablet) 975 mg PO Q6H PRN PRN Reason: Headache/Pain Mild Scale (1-3) Last Admin: 06/28/22 09:59 Dose: 975 mg Al Hydroxide/Mg Hydroxide (Magnesium Hydrox/Alum Hydrox 30 Ml Oral.Susp) 30 ml PO Q6H PRN PRN Reason: Heartburn/Nausea Last Admin: 06/25/22 10:46 Dose: 30 ml Clonazepam (Clonazepam 1 Mg Tablet) 1 mg PO BEDTIME TALIB Last Admin: 06/29/22 22:32 Dose: 1 mg Diphenhydramine HCl (Diphenhydramine Hcl 25 Mg Capsule) 50 mg PO BEDTIME TALIB Last Admin: 06/29/22 22:33 Dose: 50 mg Diphenhydramine HCl (Diphenhydramine Hcl 25 Mg Capsule) 25 mg PO Q4H PRN PRN Reason: akathisia Last Admin: 06/18/22 11:33 Dose: 25 mg Docusate Sodium (Docusate Sodium 100 Mg Capsule) 100 mg PO BID TALIB Last Admin: 06/30/22 08:51 Dose: 100 mg Gabapentin (Gabapentin 100 Mg Capsule) 100 mg PO BEDTIME PRN PRN Reason: continued insomnia Last Admin: 06/25/22 23:33 Dose: 100 mg Gabapentin (Gabapentin 400 Mg Capsule) 400 mg PO BEDTIME TALIB Last Admin: 06/29/22 22:32 Dose: 400 mg Hydroxyzine HCl (Hydroxyzine Hcl 25 Mg Tablet) 25 mg PO BEDTIME PRN PRN Reason: Anxiety Hydroxyzine HCl (Hydroxyzine Hcl 25 Mg Tablet) 25 mg PO Q6H PRN PRN Reason: Anxiety Last Admin: 06/22/22 04:05 Dose: 25 mg [place] Carbonate ([place] Carbonate Er 300 Mg Tablet.Er) 600 mg PO BID TALIB Last Admin: 06/30/22 08:51 Dose: 600 mg Lurasidone HCl (Lurasidone Hcl 40 Mg Tablet) 40 mg PO BEDTIME TALIB Last Admin: 06/29/22 22:32 Dose: 40 mg Magnesium Hydroxide (Milk Of Magnesia 30 Ml Oral.Susp) 30 ml PO DAILY PRN PRN Reason: Constipation Last Admin: 06/29/22 09:34 Dose: 30 ml Allergies Allergies Allergy/AdvReac Type Severity Reaction Status Date / Time buspirone [From BUSPAR] Allergy Unknown RASH Unverified 11/25/19 19:49 Assessment & Plan Assessment & Plan (1) Schizoaffective disorder, bipolar type: Status: Acute Code(s): F25.0 - Schizoaffective disorder, bipolar type Plan presents with psychotic symptoms in the context of medication non adherence and psychosocial stressors. has had multiple medication trials in the past. Is open to Haldol, which she reports not being given on a regular basis but this was helpful when given as needed in the past. Will therefore order Haldol along with Benadryl to minimize EPS as per patient request. may consider long-acting injectable, which patient has never been on Hospital course: 06/16/2022: Discontinue daytime Haldol dosing and maintain nighttime Haldol with Benadryl 06/17: presentation c/w skyler, pt reports good response to lithium in the past. restart lithium at 450 mg BID. 06/18: no gross change from yesterday. asking to DC haldol and start latuda, which is done. asking for PRN for anxiety, agrees to ativan 1 mg Q4H PRN. 3- day up tomorrow. 4/12: rescinded 3-day notice yesterday. increase lithium to 600 BID due to ongoing skyler, albeit improved. 06/20: continue current mgmt. attempt to have pt increase HS latuda to 40 mg. check lithium level friday [facility]. 06/22: no med changes, lithium level wednesday 06/21:? patient remains manic, hyperverbal, perseverative on delusional ideas about her genitalia; also focused on history of eating disorder.? Patient currently refuses to increase Latuda worried about long-term side effects. -continue current treatment plan; will sign out to weekend provider to see if patient changes her mind about increasing Latuda. 06/23:increase latuda to 40 mg, lithium level tomorrow 06/24:lithium level= 0.86, no med changes 06/25 patient remains hypomanic however symptoms and insight have both improved pt still w/ pressured speech but much less so and she is now interruptible and able to have a give and take in conversation. Patient is no longer perseverating on gynecological concerns; she also says she was reminded by her mother that she has a history of PCOS and thinks that it is more likely her gynecological concerns are due to this history than anything else; patient does not express any delusional thinking in this area either. That said she would still like a gynecological exam as an outpatient due to history of intermittent citing some incontinence. Patient also is more able to explain her history of eating disorder which she said was most prominent during middle school years; she says this past fall she had a few binge eating episodes however denies any recent purging/restricting behaviors and now think she might not need to pursue treatment of this kind. Discussed patient's admission and she says she came in because she had disorganized skin confused thinking; discussed diagnosis of likely bipolar disorder which she agrees is probably the case. Patient reports history of multiple admissions, each with a similar presentation where she started not sleeping for several days, ending up disorganized and admitted to a psychiatric unit. Over the weekend patient agreed to increasing Latuda and says she has had no side effects since and agrees to continue at current dose; reviewed labs from lithium and patient agrees to remain on this as well. She reports trouble sleeping and asks for gabapentin at bedtime saying it helped in the past. Patient agrees that she should probably remain on the unit until she is sleeping through the night. -will change diagnosis to schizoaffective disorder, bipolar type with a rule out for bipolar disorder; may also have PTSD as she refers to wanting equipment sterilizer who is trauma informed -patient is still manic/hypomanic and so hesitate to had any new diagnoses, ross megan she does have some symptoms similar to ASD; 06/26 remains improved, however still hypomanic, overly flirtatious, some rigid or concrete thinking, not sleeping well and with odd interpersonal interactions, smiling or laughing and and then qualifying her reasons for doing so. Social work trying to contact patient's mother (patient gave verbal permission to call her mother, therapist and medication provider) and collateral remains important as it is unclear patient's baseline. Plan: CV Q 15 minute checks Continue lithium 600 mg b.i.d.; levels within normal; BUN creatinine WNL Continue Latuda 40 mg q.h.s. Increase to gabapentin 400 mg q.h.s. for insomnia, with 100 mg as a repeat dose START Clonazepam 1mg qhs for insomnia DC Haldol p.r.n. at patient's request Will seek collateral as patient has given permission to call both her mother and therapist Reason for continued inpatient stay Substantial Risk for: inability to function, rapid decompensation and med/psych decompensation Time Spent With Patient Time: Total time managing care of this patient today __20__ minutes.
[2022-06-30 22:06] VITALS: BP 120/70; PULSE 94; RESP 18; TEMP 36.7; O2SAT 97
[2022-06-30] MEDS: Gabapentin 400 MG CAPSULE PO (22:53)
[2022-06-30] MEDS: clonazePAM 1 MG TABLET PO (22:53)
[2022-06-30] MEDS: Lurasidone HCl 40 MG TABLET PO (22:53)
[2022-06-30] MEDS: diphenhydrAMINE HCL 25 MG CAPSULE 50 MG PO (22:53)
[2022-07-01 08:43] VITALS: BP 120/83; PULSE 80; RESP 18; TEMP 36.1; O2SAT 98
[2022-07-01] MEDS: Docusate Sodium 100 MG CAPSULE PO ×2 (08:49→22:45)
[2022-07-01] MEDS: Lithium Carbonate ER 300 MG TABLET.ER 600 MG PO ×2 (08:49→22:45)
[2022-07-01] MEDS: Milk of Magnesia 30 ML ORAL.SUSP PO (08:49)
--- NOTE | 2022-07-01 10:57 | PM.PSYDC ---
DS: Providers Provider Date of admission: 06/15/22 11:39 Primary care physician: Unknown Physician DS: Diagnosis Discharge Diagnosis (1) Schizoaffective disorder, bipolar type: Status: Acute DS: Medications Discharge Medications Home Medications: Home Medications Medication Instructions Recorded Confirmed hydroxyzine pamoate 25 mg capsule 25 mg PO BEDTIME PRN Anxiety 06/14/22 06/14/22 Previous Rx's Medication Instructions Recorded clonazepam 1 mg tablet 1 mg PO BEDTIME 30 days #30 tabs 07/01/22 diphenhydramine HCl 25 mg capsule 50 mg PO BEDTIME 30 days #60 caps 07/01/22 docusate sodium 100 mg capsule 100 mg PO BID 30 days #60 caps 07/01/22 gabapentin 400 mg capsule 400 mg PO BEDTIME 30 days #30 caps 07/01/22 lithium carbonate 300 mg 600 mg PO BID 30 days #120 tabs 07/01/22 tablet,extended release lurasidone 40 mg tablet (Latuda) 40 mg PO BEDTIME 30 days #30 tabs 07/01/22 DS: Summary Time Spent with Patient Time attestation: Total time managing care of this patient today ____ minutes. Discharge Plan Discharge Anticipated Discharge Date/Time: 07/01/22 10:55 Patient Disposition: Home, Self-Care Discharge Diagnosis: Bipolar I Disorder, MRE Orin R/O Schizoaffective Disorder, Bipolar Type Referrals: Physician,Unknown J [Primary Care Provider] - 1 Week Discharge Medications: New gabapentin 400 mg Capsule 400 mg PO BEDTIME 30 Days Qty: 30 0RF clonazepam 1 mg Tablet 1 mg PO BEDTIME 30 Days Qty: 30 0RF lithium carbonate 300 mg Tablet Extended Release 600 mg PO BID 30 Days Qty: 120 0RF diphenhydramine HCl 25 mg Capsule 50 mg PO BEDTIME 30 Days Qty: 60 0RF docusate sodium 100 mg Capsule 100 mg PO BID 30 Days Qty: 60 0RF lurasidone [Latuda] 40 mg Tablet 40 mg PO BEDTIME 30 Days Qty: 30 0RF Continued hydroxyzine pamoate 25 mg capsule 25 mg PO BEDTIME PRN (Reason: Anxiety) Discontinued trifluoperazine 2 mg tablet 2 mg PO QPM Discharge Orders: Discharge Order (Routine); Ordered 07/01/22 Ordered By: Mumtaz Del Cid Diet: Advance to usual diet Activity on Discharge: As tolerated Stand Alone Forms: Patient Portal Discharge page Care Plan Goals: remain safe and stable in the outpatient treatment setting Health Concerns: none Plan of Treatment: take medications as prescribed, attend appointments as scheduled Assessment: not at imminent risk of harm to self or others
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
[2022-07-01 20:06] LABS: Lithium 0.78 mmol/L (0.60-1.20)
[2022-07-01 20:59] LABS: Anion Gap 11 (12-20)
[2022-07-01 21:01] LABS: Blood Urea Nitrogen 9 mg/dL (9-16); Calcium 9.9 mg/dL (8.4-10.2); Carbon Dioxide 29 mmol/L (22-29); Chloride 105 mmol/L (96-108); Creatinine Clr Calc Pharmacy 117.2; Estimated Glomerular Filt Rate > 60; Glucose Random 92 mg/dL (60-115); Potassium 4.6 mmol/L (3.3-5.1); Sodium 140 mmol/L (135-145)
[2022-07-01 21:53] LABS: Appearance Urine Clear; Color Urine Yellow; Glucose Urine UA Negative (Negative); Leukocyte Esterase Urine Large (3+) (Negative); Nitrite Urine Negative (Negative); Specific Gravity - Urine <= 1.005 (1.005-1.025); UMIC TRIGGER UACC YES; Urine Blood Negative (Negative); Urine Ketones Negative (Negative); Urine Protein Negative (Neg-Trace)
[2022-07-01 22:05] LABS: Bacteria Urine None Seen (None Seen); Hyaline Casts Urine 0-2 /LPF (0-2); RBC Urine 0-2 /HPF (0-2); Squamous Epithelial Cell Urine 0-2 /HPF (0-2); UACC Culture Trigger YES; WBC Urine 0-5 /HPF (0-5)
[2022-07-01 22:40] VITALS: BP 120/80; PULSE 96; RESP 18; O2SAT 98
[2022-07-01] MEDS: Lurasidone HCl 20 MG TABLET 60 MG PO (22:44)
[2022-07-01] MEDS: Gabapentin 400 MG CAPSULE PO (22:45)
[2022-07-01] MEDS: diphenhydrAMINE HCL 25 MG CAPSULE 50 MG PO (22:45)
--- NOTE | 2022-07-01 22:53 | PC.NURSE ---
Scheduled latuda at bedtime increased to 60 mg. Pt stated that she requested to keep dose at 40 mg, requested to take only 40 mg of ordered dose as she feels that she has been doing well at this dose.
[2022-07-02 08:20] VITALS: BP 124/67; PULSE 87; RESP 16; TEMP 36.4; O2SAT 97
[2022-07-02] MEDS: Docusate Sodium 100 MG CAPSULE PO ×2 (08:31→22:38)
[2022-07-02] MEDS: Lithium Carbonate ER 300 MG TABLET.ER 600 MG PO ×2 (08:31→22:38)
--- NOTE | 2022-07-02 13:04 | PC.NURSE ---
Patient became agitated while on the phone with mother, yelling about not wanting to live with her mother. She threw a book in the day room. When I approached her she said she does not want to talk about her situation but that her mother is a mean person and she does not want to move home. She says her current living situation is non traditional but she feels safe threre and moving home would be traditional but she would feel unsafe with her mom.
--- NOTE | 2022-07-02 14:14 | P.PNPSI_ITS ---
Subjective Subjective Date of Service: 07/02/22 Reason For Visit: Psychosis Interim History: slightly less pressured than yesterday. pt notes she may have had a hard time controlling her verbal output yesterday but that she is more aware of it and in better control today; she then suggests she discharge this afternoon to make it to a class. suggests waiting for her mother to arrive in town to be with her might be best, which pt ultimately accepts. per collateral, according to rod at the hospital at [facility], pt is already far behind in her work for the semester and will be unable to complete courses. pt reports she slept soundly last night without taking klonopin; decreases dose of klonopin to 0.5 mg QHS. pt states she will take increased dose of latuda, now prescribed at 60 mg QHS. per staff, denying Sx. visible, pacing, reading. Mental Status Exam Mental Status Exam Narrative: pleasant. Engaged. street clothes. Self-care okay. Speech is incr rate and amount, decr latency. thoughts tangential. mood sad. No SI. No HI. Denies hallucinations. Insight and judgment limited to fair regarding medication discussion and treatment. Diagnostics Vital Signs (24Hr): Vital Signs - 24 hr 07/01/22 22:40 07/02/22 08:20 Temperature 97.6 F Pulse Rate 96 87 Respiratory Rate 18 16 Blood Pressure 120/80 124/67 Pulse Oximetry 98 97 Oxygen Delivery Method Room Air Room Air BMI result Body Mass Index 28.8 Labs 06/14/22 18:41 07/01/22 20:40 Labs: Laboratory Results - last 48 hr 07/01/22 07/01/22 07/01/22 19:53 20:40 21:30 Sodium 140 Potassium 4.6 Chloride 105 Carbon Dioxide 29 Anion Gap 11 L BUN 9 Creatinine 0.76 Estim Creat Clear Calc 117.2 Estimated GFR > 60 Random Glucose 92 Calcium 9.9 D Urine Color Yellow Urine Appearance Clear Urine pH 8.0 Ur Specific [place] <= 1.005 Urine Protein Negative Urine Glucose (UA) Negative Urine Ketones Negative Urine Blood Negative Urine Nitrite Negative Ur Leukocyte Esterase Large (3+) H Urine RBC 0-2 Urine WBC 0-5 Ur Squamous Epith Cells 0-2 Urine Bacteria None Seen Hyaline Casts 0-2 [place] 0.78 Medications Medications Current Medications Acetaminophen (Acetaminophen 325 Mg Tablet) 975 mg PO Q6H PRN PRN Reason: Headache/Pain Mild Scale (1-3) Last Admin: 06/28/22 09:59 Dose: 975 mg Al Hydroxide/Mg Hydroxide (Magnesium Hydrox/Alum Hydrox 30 Ml Oral.Susp) 30 ml PO Q6H PRN PRN Reason: Heartburn/Nausea Last Admin: 06/25/22 10:46 Dose: 30 ml Clonazepam (Clonazepam 0.5 Mg Tablet) 0.5 mg PO BEDTIME TALIB Diphenhydramine HCl (Diphenhydramine Hcl 25 Mg Capsule) 50 mg PO BEDTIME TALIB Last Admin: 07/01/22 22:45 Dose: 50 mg Diphenhydramine HCl (Diphenhydramine Hcl 25 Mg Capsule) 25 mg PO Q4H PRN PRN Reason: akathisia Last Admin: 06/18/22 11:33 Dose: 25 mg Docusate Sodium (Docusate Sodium 100 Mg Capsule) 100 mg PO BID [facility] Last Admin: 07/02/22 08:31 Dose: 100 mg Gabapentin (Gabapentin 100 Mg Capsule) 100 mg PO BEDTIME PRN PRN Reason: continued insomnia Last Admin: 06/25/22 23:33 Dose: 100 mg Gabapentin (Gabapentin 400 Mg Capsule) 400 mg PO BEDTIME [facility] Last Admin: 07/01/22 22:45 Dose: 400 mg Hydroxyzine HCl (Hydroxyzine Hcl 25 Mg Tablet) 25 mg PO BEDTIME PRN PRN Reason: Anxiety Hydroxyzine HCl (Hydroxyzine Hcl 25 Mg Tablet) 25 mg PO Q6H PRN PRN Reason: Anxiety Last Admin: 06/22/22 04:05 Dose: 25 mg Carney Carbonate (Carney Carbonate Er 300 Mg Tablet.Er) 600 mg PO BID [facility] Last Admin: 07/02/22 08:31 Dose: 600 mg Lurasidone HCl (Lurasidone Hcl 20 Mg Tablet) 60 mg PO BEDTIME [facility] Last Admin: 07/01/22 22:44 Dose: 40 mg Magnesium Hydroxide (Milk Of Magnesia 30 Ml Oral.Susp) 30 ml PO DAILY PRN PRN Reason: Constipation Last Admin: 07/01/22 08:49 Dose: 30 ml Allergies Allergies Allergy/AdvReac Type Severity Reaction Status Date / Time buspirone [From BUSPAR] Allergy Unknown RASH Unverified 11/25/19 19:49 Assessment & Plan Assessment & Plan (1) Schizoaffective disorder, bipolar type: Status: Acute Code(s): F25.0 - Schizoaffective disorder, bipolar type Plan presents with psychotic symptoms in the context of medication non adherence and psychosocial stressors. has had multiple medication trials in the past. Is open to Haldol, which she reports not being given on a regular basis but this was helpful when given as needed in the past. Will therefore order Haldol along with Benadryl to minimize EPS as per patient request. may consider long-acting injectable, which patient has never been on Hospital course: 06/16/2022: Discontinue daytime Haldol dosing and maintain nighttime Haldol with Benadryl 06/17: presentation c/w skyler, pt reports good response to lithium in the past. restart lithium at 450 mg BID. 06/18: no gross change from yesterday. asking to DC haldol and start latuda, which is done. asking for PRN for anxiety, agrees to ativan 1 mg Q4H PRN. 3- day up tomorrow. 06/19: rescinded 3-day notice yesterday. increase lithium to 600 BID due to ongoing skyler, albeit improved. 06/20: continue current mgmt. attempt to have pt increase HS latuda to 40 mg. check lithium level friday [facility]. 06/22: no med changes, lithium level wednesday 06/21:? patient remains manic, hyperverbal, perseverative on delusional ideas about her genitalia; also focused on history of eating disorder.? Patient currently refuses to increase Latuda worried about long-term side effects. -continue current treatment plan; will sign out to weekend provider to see if patient changes her mind about increasing Latuda. 06/23:increase latuda to 40 mg, lithium level tomorrow 06/24:lithium level= 0.86, no med changes 06/25 patient remains hypomanic however symptoms and insight have both improved pt still w/ pressured speech but much less so and she is now interruptible and able to have a give and take in conversation. Patient is no longer perseverating on gynecological concerns; she also says she was reminded by her mother that she has a history of PCOS and thinks that it is more likely her gynecological concerns are due to this history than anything else; patient does not express any delusional thinking in this area either. That said she would still like a gynecological exam as an outpatient due to history of intermittent citing some incontinence. Patient also is more able to explain her history of eating disorder which she said was most prominent during middle school years; she says this past fall she had a few binge eating episodes however denies any recent purging/restricting behaviors and now think she might not need to pursue treatment of this kind. Discussed patient's admission and she says she came in because she had disorganized skin confused thinking; discussed diagnosis of likely bipolar disorder which she agrees is probably the case. Patient reports history of multiple admissions, each with a similar presentation where she started not sl eeping for several days, ending up disorganized and admitted to a psychiatric unit. Over the weekend patient agreed to increasing Latuda and says she has had no side effects since and agrees to continue at current dose; reviewed labs from lithium and patient agrees to remain on this as well. She reports trouble sleeping and asks for gabapentin at bedtime saying it helped in the past. Patient agrees that she should probably remain on the unit until she is sleeping through the night. -will change diagnosis to schizoaffective disorder, bipolar type with a rule out for bipolar disorder; may also have PTSD as she refers to wanting dinkey engineer who is trauma informed -patient is still manic/hypomanic and so hesitate to had any new diagnoses, however she does have some symptoms similar to ASD; 06/26 remains improved, however still hypomanic, overly flirtatious, some rigid or concrete thinking, not sleeping well and with odd interpersonal interactions, smiling or laughing and and then qualifying her reasons for doing so. Social work trying to contact patient's mother (patient gave verbal permission to call her mother, therapist and medication provider) and collateral remains important as it is unclear patient's baseline. 06/27 Patient slept last night and feels gabapentin was helpful. Patient more calm, much more linear and able to have a given taking conversation. She remains focused on wanting to talk about whether not she should go to an eating disorder clinic shares her past history with these struggles. There does not seem to be a current symptoms however. Patient shared that she continues to have intermittent auditory hallucinations but that they are not malicious and she does not want any increased medication for this. She also reports having intrusive thoughts and distinguishes them from the auditory hallucinations however she does not want to discuss. Glue Mounter Operator broached the topic of ASD and patient said that she has wondered about this for years. Glue Mounter Operator discussed how this can be a spectrum and some people can have some symptoms but not have the actual disorder to which patient understood and agreed. She shares how her difficulties in interpersonal relationships, understanding emotional cues, understanding when a person wants to stop talking or is not interested in the topic, sarcasm and jokes. Patient reports she used to rock back and forth to calm herself. She reports pacing the halls is for exercise; reports at baseline she always talks a lot and fairly quickly 06/28 patient remains stable; she is much improved and need collateral to assess whether not she is at baseline. 07/01: checks labs. increase latuda to 60 mg QHS. remains manic, delusional. 07/02: lithium 0.78, renal fxn WNL. remains manic, delusional. refused increased dose of latuda last NOC, agrees to take it tonight. Reason for continued inpatient stay Substantial Risk for: inability to function and rapid decompensation Time Spent With Patient Time: Total time managing care of this patient today __35__ minutes.
[2022-07-02 20:57] VITALS: BP 113/74; PULSE 86; RESP 16; TEMP 36.6; O2SAT 100
[2022-07-02] MEDS: clonazePAM 0.5 MG TABLET PO (22:37)
[2022-07-02] MEDS: diphenhydrAMINE HCL 25 MG CAPSULE 50 MG PO (22:37)
[2022-07-02] MEDS: Gabapentin 400 MG CAPSULE PO (22:38)
[2022-07-02] MEDS: Lurasidone HCl 20 MG TABLET 60 MG PO (22:39)
[2022-07-03 08:20] VITALS: BP 115/74; PULSE 91; RESP 18; TEMP 36.6; O2SAT 100
[2022-07-03] MEDS: Lithium Carbonate ER 300 MG TABLET.ER 600 MG PO (08:23)
[2022-07-03] MEDS: Docusate Sodium 100 MG CAPSULE PO ×2 (08:23→22:42)
[2022-07-03] MEDS: hydrOXYzine HCL 25 MG TABLET PO (11:10)
--- NOTE | 2022-07-03 15:16 | HO.PSYCHPN ---
Subjective Subjective Date of Service: 07/03/22 Reason For Visit: Psychosis Interim History: pt pressured, talking at MD for minutes on end without a break. once MD points this out and calls attention to her Sx of mental illness, she is able to have a more balanced and reciprocal interaction. nevertheless highly resistant to further medication increases, although MD informed by RN later that she had ultimately agreed to a higher dose of lithium. per staff, yelling at mother on phone yesterday. refusing to take latuda with food. Mental Status Exam Mental Status Exam Narrative: pleasant. Engaged. street clothes. Self-care okay. Speech is incr rate and amount, decr latency. thoughts tangential. mood sad. No SI. No HI. Denies hallucinations. Insight and judgment limited to fair regarding medication discussion and treatment. Diagnostics Vital Signs (24Hr): Vital Signs - 24 hr 07/02/22 20:57 07/03/22 08:20 Temperature 97.8 F 97.8 F Pulse Rate 86 91 Respiratory Rate 16 18 Blood Pressure 113/74 115/74 Pulse Oximetry 100 100 Oxygen Delivery Method Room Air Room Air BMI result Body Mass Index 28.8 Labs 06/14/22 18:41 07/01/22 20:40 Labs: Laboratory Results - last 48 hr 07/01/22 07/01/22 07/01/22 19:53 20:40 21:30 Sodium 140 Potassium 4.6 Chloride 105 Carbon Dioxide 29 Anion Gap 11 L BUN 9 Creatinine 0.76 Estim Creat Clear Calc 117.2 Estimated GFR > 60 Random Glucose 92 Calcium 9.9 D Urine Color Yellow Urine Appearance Clear Urine pH 8.0 Ur Specific [place] <= 1.005 Urine Protein Negative Urine Glucose (UA) Negative Urine Ketones Negative Urine Blood Negative Urine Nitrite Negative Ur Leukocyte Esterase Large (3+) H Urine RBC 0-2 Urine WBC 0-5 Ur Squamous Epith Cells 0-2 Urine Bacteria None Seen Hyaline Casts 0-2 Will[place] 0.78 Medications Medications Current Medications Acetaminophen (Acetaminophen 325 Mg Tablet) 975 mg PO Q6H PRN PRN Reason: Headache/Pain Mild Scale (1-3) Last Admin: 06/28/22 09:59 Dose: 975 mg Al Hydroxide/Mg Hydroxide (Magnesium Hydrox/Alum Hydrox 30 Ml Oral.Susp) 30 ml PO Q6H PRN PRN Reason: Heartburn/Nausea Last Admin: 06/25/22 10:46 Dose: 30 ml Clonazepam (Clonazepam 0.5 Mg Tablet) 0.5 mg PO BEDTIME PRN PRN Reason: insomnia Diphenhydramine HCl (Diphenhydramine Hcl 25 Mg Capsule) 50 mg PO BEDTIME [facility] Last Admin: 07/02/22 22:37 Dose: 50 mg Diphenhydramine HCl (Diphenhydramine Hcl 25 Mg Capsule) 25 mg PO Q4H PRN PRN Reason: akathisia Last Admin: 06/18/22 11:33 Dose: 25 mg Docusate Sodium (Docusate Sodium 100 Mg Capsule) 100 mg PO BID [facility] Last Admin: 07/03/22 08:23 Dose: 100 mg Gabapentin (Gabapentin 100 Mg Capsule) 100 mg PO BEDTIME PRN PRN Reason: continued insomnia Last Admin: 06/25/22 23:33 Dose: 100 mg Gabapentin (Gabapentin 400 Mg Capsule) 400 mg PO BEDTIME [facility] Last Admin: 07/02/22 22:38 Dose: 400 mg Hydroxyzine HCl (Hydroxyzine Hcl 25 Mg Tablet) 25 mg PO BEDTIME PRN PRN Reason: Anxiety Hydroxyzine HCl (Hydroxyzine Hcl 25 Mg Tablet) 25 mg PO Q6H PRN PRN Reason: Anxiety Last Admin: 07/03/22 11:10 Dose: 25 mg [place] Carbonate ([place] Carbonate Er 300 Mg Tablet.Er) 600 mg PO BID [facility] Last Admin: 07/03/22 08:23 Dose: 600 mg Lurasidone HCl (Lurasidone Hcl 20 Mg Tablet) 60 mg PO BEDTIME [facility] Last Admin: 07/02/22 22:39 Dose: 60 mg Magnesium Hydroxide (Milk Of Magnesia 30 Ml Oral.Susp) 30 ml PO DAILY PRN PRN Reason: Constipation Last Admin: 07/01/22 08:49 Dose: 30 ml Allergies Allergies Allergy/AdvReac Type Severity Reaction Status Date / Time buspirone [From BUSPAR] Allergy Unknown RASH Unverified 11/25/19 19:49 Assessment & Plan Assessment & Plan (1) Schizoaffective disorder, bipolar type: Status: Acute Code(s): F25.0 - Schizoaffective disorder, bipolar type Plan presents with psychotic symptoms in the context of medication non adherence and psychosocial stressors. has had multiple medication trials in the past. Is open to Haldol, which she reports not being given on a regular basis but this was helpful when given as needed in the past. Will therefore order Haldol along with Benadryl to minimize EPS as per patient request. may consider long-acting injectable, which patient has never been on Hospital course: 06/16/2022: Discontinue daytime Haldol dosing and maintain nighttime Haldol with Benadryl 06/17: presentation c/w skyler, pt reports good response to lithium in the past. restart lithium at 450 mg BID. 06/18: no gross change from yesterday. asking to DC haldol and start latuda, which is done. asking for PRN for anxiety, agrees to ativan 1 mg Q4H PRN. 3-day up tomorrow. 06/19: rescinded 3-day notice yesterday. increase lithium to 600 BID due to ongoing skyler, albeit improved. 06/20: continue current mgmt. attempt to have pt increase HS latuda to 40 mg. check lithium level friday [facility]. 06/22: no med changes, lithium level wednesday 06/21:? patient remains manic, hyperverbal, perseverative on delusional ideas about her genitalia; also focused on history of eating disorder.? Patient currently refuses to increase Latuda worried about long-term side effects. -continue current treatment plan; will sign out to weekend provider to see if patient changes her mind about increasing Latuda. 06/23:increase latuda to 40 mg, lithium level tomorrow 06/24:lithium level= 0.86, no med changes 06/25 patient remains hypomanic however symptoms and insight have both improved pt still w/ pressured speech but much less so and she is now interruptible and able to have a give and take in conversation. Patient is no longer perseverating on gynecological concerns; she also says she was reminded by her mother that she has a history of PCOS and thinks that it is more likely her gynecological concerns are due to this history than anything else; patient does not express any delusional thinking in this area either. That said she would still like a gynecological exam as an outpatient due to history of intermittent citing some incontinence. Patient also is more able to explain her history of eating disorder which she said was most prominent during middle school years; she says this past fall she had a few binge eating episodes however denies any recent purging/restricting behaviors and now think she might not need to pursue treatment of this kind. Discussed patient's admission and she says she came in because she had disorganized skin confused thinking; discussed diagnosis of likely bipolar disorder which she agrees is probably the case. Patient reports history of multiple admissions, each with a similar presentation where she started not sleeping for several days, ending up disorganized and admitted to a psychiatric unit. Over the weekend patient agreed to increasing Latuda and says she has had no side effects since and agrees to continue at current dose; reviewed labs from lithium and patient agrees to remain on this as well. She reports trouble sleeping and asks for gabapentin at bedtime saying it helped in the past. Patient agrees that she should probably remain on the unit until she is sleeping through the night. -will change diagnosis to schizoaffective disorder, bipolar type with a rule out for bipolar disorder; may also have PTSD as she refers to wanting consultant in ergonomics and safety who is trauma informed -patient is still manic/hypomanic and so hesitate to had any new diagnoses, however she does have some symptoms similar to ASD; 06/26 remains improved, however still hypomanic, overly flirtatious, some rigid or concrete thinking, not sleeping well and with odd interpersonal interactions, smiling or laughing and and then qualifying her reasons for doing so. Social work trying to contact patient's mother (patient gave verbal permission to call her mother, therapist and medication provider) and collateral remains important as it is unclear patient's baseline. 06/27 Patient slept last night and feels gabapentin was helpful. Patient more calm, much more linear and able to have a given taking conversation. She remains focused on wanting to talk about whether not she should go to an eating disorder clinic shares her past history with these struggles. There does not seem to be a current symptoms however. Patient shared that she continues to have intermittent auditory hallucinations but that they are not malicious and she does not want any increased medication for this. She also reports having intrusive thoughts and distinguishes them from the auditory hallucinations however she does not want to discuss. Cdl Bulk Driver broached the topic of ASD and patient said that she has wondered about this for years. Cdl Bulk Driver discussed how this can be a spectrum and some people can have some symptoms but not have the actual disorder to which patient understood and agreed. She shares how her difficulties in interpersonal relationships, understanding emotional cues, understanding when a person wants to stop talking or is not interested in the topic, sarcasm and jokes. Patient reports she used to rock back and forth to calm herself. She reports pacing the halls is for exercise; reports at baseline she always talks a lot and fairly quickly 06/28 patient remains stable; she is much improved and need collateral to assess whether not she is at baseline. 07/01: checks labs. increase latuda to 60 mg QHS. remains manic, delusional. 07/02: lithium 0.78, renal fxn WNL. remains manic, delusional. refused increased dose of latuda last NOC, agrees to take it tonight. 07/03: remains with pressured speech and tangential thought process. very reluctantly agrees to increase lithium from 600 BID to 600/750. took latuda 60 at HS last night, sans food. Reason for continued inpatient stay Substantial Risk for: inability to function and rapid decompensation Time Spent With Patient Time: Total time managing care of this patient today _35___ minutes.
[2022-07-03 21:12] VITALS: BP 133/63; PULSE 90; RESP 16; TEMP 36.7; O2SAT 100
[2022-07-03] MEDS: diphenhydrAMINE HCL 25 MG CAPSULE 50 MG PO (22:39)
[2022-07-03] MEDS: Lithium Carbonate ER 450 MG TABLET.ER PO (22:40)
[2022-07-03] MEDS: Lurasidone HCl 20 MG TABLET 60 MG PO (22:41)
[2022-07-03] MEDS: Lithium Carbonate ER 300 MG TABLET.ER PO (22:41)
[2022-07-03] MEDS: Gabapentin 400 MG CAPSULE PO (22:42)
[2022-07-04 07:00] VITALS: BMI 28.8
[2022-07-04 08:45] VITALS: BP 132/81; PULSE 79; RESP 18; TEMP 36.6; O2SAT 99
[2022-07-04] MEDS: Lithium Carbonate ER 300 MG TABLET.ER 600 MG PO ×2 (09:46→22:04)
[2022-07-04] MEDS: Docusate Sodium 100 MG CAPSULE PO ×2 (09:46→22:04)
[2022-07-04] MEDS: hydrOXYzine HCL 25 MG TABLET PO (12:34)
--- NOTE | 2022-07-04 15:42 | P.PNPSI_ITS ---
Subjective Subjective Date of Service: 07/04/22 Reason For Visit: Psychosis Interim History: verbose. seen with SW. hopeful. c/o slowed cognition, which she later reframes as her thinking is less visual than usual, which she finds hampering. c/o RAMOS since lithium dosing increase, agrees to decrease the dose back to 600 BID. impaired attention, as pt does not recall MD's having agreed to the change later in the interview. asking for D/C, but both MD and SW indicate to her she does not appear to have an adequately elaborated dispo plan in place yet. Mental Status Exam Mental Status Exam Narrative: pleasant. Engaged. street clothes. Self-care okay. Speech is incr rate and amount, decr latency. thoughts tangential. mood hopeful. No SI/HI/AVH expressed. Insight and judgment impaired. Diagnostics Vital Signs (24Hr): Vital Signs - 24 hr 07/03/22 21:12 07/04/22 08:45 Temperature 98.1 F 97.9 F Pulse Rate 90 79 Respiratory Rate 16 18 Blood Pressure 133/63 132/81 Pulse Oximetry 100 99 Oxygen Delivery Method Room Air Room Air BMI result Body Mass Index 28.8 Labs 06/14/22 18:41 07/01/22 20:40 Medications Medications Current Medications Acetaminophen (Acetaminophen 325 Mg Tablet) 975 mg PO Q6H PRN PRN Reason: Headache/Pain Mild Scale (1-3) Last Admin: 06/28/22 09:59 Dose: 975 mg Al Hydroxide/Mg Hydroxide (Magnesium Hydrox/Alum Hydrox 30 Ml Oral.Susp) 30 ml PO Q6H PRN PRN Reason: Heartburn/Nausea Last Admin: 06/25/22 10:46 Dose: 30 ml Clonazepam (Clonazepam 0.5 Mg Tablet) 0.5 mg PO BEDTIME PRN PRN Reason: insomnia Diphenhydramine HCl (Diphenhydramine Hcl 25 Mg Capsule) 50 mg PO BEDTIME TALIB Last Admin: 07/03/22 22:39 Dose: 50 mg Diphenhydramine HCl (Diphenhydramine Hcl 25 Mg Capsule) 25 mg PO Q4H PRN PRN Reason: akathisia Last Admin: 06/18/22 11:33 Dose: 25 mg Docusate Sodium (Docusate Sodium 100 Mg Capsule) 100 mg PO BID TALIB Last Admin: 07/04/22 09:46 Dose: 100 mg Gabapentin (Gabapentin 100 Mg Capsule) 100 mg PO BEDTIME PRN PRN Reason: continued insomnia Last Admin: 06/25/22 23:33 Dose: 100 mg Gabapentin (Gabapentin 400 Mg Capsule) 400 mg PO BEDTIME TALIB Last Admin: 07/03/22 22:42 Dose: 400 mg Hydroxyzine HCl (Hydroxyzine Hcl 25 Mg Tablet) 25 mg PO BEDTIME PRN PRN Reason: Anxiety Last Admin: 07/04/22 12:34 Dose: 25 mg Hydroxyzine HCl (Hydroxyzine Hcl 25 Mg Tablet) 25 mg PO Q6H PRN PRN Reason: Anxiety Last Admin: 07/03/22 11:10 Dose: 25 mg [place] Carbonate ([place] Carbonate Er 300 Mg Tablet.Er) 600 mg PO DAILY TALIB Last Admin: 07/04/22 09:46 Dose: 600 mg [place] Carbonate ([place] Carbonate Er 300 Mg Tablet.Er) 600 mg PO BEDTIME TALIB Lurasidone HCl (Lurasidone Hcl 20 Mg Tablet) 60 mg PO BEDTIME TALIB Last Admin: 07/03/22 22:41 Dose: 60 mg Magnesium Hydroxide (Milk Of Magnesia 30 Ml Oral.Susp) 30 ml PO DAILY PRN PRN Reason: Constipation Last Admin: 07/01/22 08:49 Dose: 30 ml Allergies Allergies Allergy/AdvReac Type Severity Reaction Status Date / Time buspirone [From BUSPAR] Allergy Unknown RASH Unverified 11/25/19 19:49 Assessment & Plan Assessment & Plan (1) Schizoaffective disorder, bipolar type: Status: Acute Code(s): F25.0 - Schizoaffective disorder, bipolar type Plan presents with psychotic symptoms in the context of medication non adherence and psychosocial stressors. has had multiple medication trials in the past. Is open to Haldol, which she reports not being given on a regular basis but this was helpful when given as needed in the past. Will therefore order Haldol along with Benadryl to minimize EPS as per patient request. may consider long-acting injectable, which patient has never been on Hospital course: 06/16/2022: Discontinue daytime Haldol dosing and maintain nighttime Haldol with Benadryl 06/17: presentation c/w skyler, pt reports good response to lithium in the past. restart lithium at 450 mg BID. 06/18: no gross change from yesterday. asking to DC haldol and start latuda, which is done. asking for PRN for anxiety, agrees to ativan 1 mg Q4H PRN. 3- day up tomorrow. 06/19: rescinded 3-day notice yesterday. increase lithium to 600 BID due to ongoing skyler, albeit improved. 06/20: continue current mgmt. attempt to have pt increase HS latuda to 40 mg. check lithium level friday [facility]. 06/22: no med changes, lithium level wednesday 06/21:? patient remains manic, hyperverbal, perseverative on delusional ideas about her genitalia; also focused on history of eating disorder.? Patient currently refuses to increase Latuda worried about long-term side effects. -continue current treatment plan; will sign out to weekend provider to see if patient changes her mind about increasing Latuda. 06/23:increase latuda to 40 mg, lithium level tomorrow 06/24:lithium level= 0.86, no med changes 06/25 patient remains hypomanic however symptoms and insight have both improved pt still w/ pressured speech but much less so and she is now interruptible and able to have a give and take in conversation. Patient is no longer perseverating on gynecological concerns; she also says she was reminded by her mother that she has a history of PCOS and thinks that it is more likely her gynecological concerns are due to this history than anything else; patient does not express any delusional thinking in this area either. That said she would still like a gynecological exam as an outpatient due to history of intermittent citing some incontinence. Patient also is more able to explain her history of eating disorder which she said was most prominent during middle school years; she says this past fall she had a few binge eating episodes however denies any recent purging/restricting behaviors and now think she might not need to pursue treatment of this kind. Discussed patient's admission and she says she came in because she had disorganized skin confused thinking; discussed diagnosis of likely bipolar disorder which she agrees is probably the case. Patient reports history of multiple admissions, each with a similar presentation where she started not sleeping for several days, ending up disorganized and admitted to a psychiatric unit. Over the weekend patient agreed to increasing Latuda and says she has had no side effects since and agrees to continue at current dose; reviewed labs from lithium and patient agrees to remain on this as well. She reports trouble sleeping and asks for gabapentin at bedtime saying it helped in the past. Ashlee hurtado agrees that she should probably remain on the unit until she is sleeping through the night. -will change diagnosis to schizoaffective disorder, bipolar type with a rule out for bipolar disorder; may also have PTSD as she refers to wanting checking department supervisor who is trauma informed -patient is still manic/hypomanic and so hesitate to had any new diagnoses, however she does have some symptoms similar to ASD; 06/26 remains improved, however still hypomanic, overly flirtatious, some rigid or concrete thinking, not sleeping well and with odd interpersonal interactions, smiling or laughing and and then qualifying her reasons for doing so. Social work trying to contact patient's mother (patient gave verbal permission to call her mother, therapist and medication provider) and collateral remains important as it is unclear patient's baseline. 06/27 Patient slept last night and feels gabapentin was helpful. Patient more calm, much more linear and able to have a given taking conversation. She r emains focused on wanting to talk about whether not she should go to an eating disorder clinic shares her past history with these struggles. There does not seem to be a current symptoms however. Patient shared that she continues to have intermittent auditory hallucinations but that they are not malicious and she does not want any increased medication for this. She also reports having intrusive thoughts and distinguishes them from the auditory hallucinations however she does not want to discuss. Plumber Assistant broached the topic of ASD and patient said that she has wondered about this for years. Plumber Assistant discussed how this can be a spectrum and some people can have some symptoms but not have the actual disorder to which patient understood and agreed. She shares how her difficulties in interpersonal relationships, understanding emotional cues, understanding when a person wants to stop talking or is not interested in the topic, sarcasm and jokes. Patient reports she used to rock back and forth to calm herself. She reports pacing the halls is for exercise; reports at baseline she always talks a lot and fairly quickly 06/28 patient remains stable; she is much improved and need collateral to assess whether not she is at baseline. 07/01: checks labs. increase latuda to 60 mg QHS. remains manic, delusional. 07/02: lithium 0.78, renal fxn WNL. remains manic, delusional. refused increased dose of latuda last NOC, agrees to take it tonight. 07/03: remains with pressured speech and tangential thought process. very reluctantly agrees to increase lithium from 600 BID to 600/750. took latuda 60 at HS last night, sans food. 07/04: return lithium dosing to 600 mg BID per pt request. no change in presentation from yesterday. Reason for continued inpatient stay Substantial Risk for: inability to function and rapid decompensation Time Spent With Patient Time: Total time managing care of this patient today _35___ minutes.
[2022-07-04 19:56] VITALS: BP 114/70; PULSE 80; RESP 16; TEMP 36.7; O2SAT 100
[2022-07-04] MEDS: diphenhydrAMINE HCL 25 MG CAPSULE 50 MG PO (22:03)
[2022-07-04] MEDS: Lurasidone HCl 20 MG TABLET 60 MG PO (22:03)
[2022-07-04] MEDS: Gabapentin 400 MG CAPSULE PO (22:04)
[2022-07-05 08:00] VITALS: BP 118/72; PULSE 87; RESP 16; TEMP 36.3; O2SAT 99
[2022-07-05] MEDS: Docusate Sodium 100 MG CAPSULE PO ×2 (08:58→21:36)
[2022-07-05] MEDS: Lithium Carbonate ER 300 MG TABLET.ER 600 MG PO ×2 (08:58→21:36)
[2022-07-05 21:10] VITALS: BP 128/79; PULSE 86; RESP 18; TEMP 36.4; O2SAT 98
[2022-07-05] MEDS: Lurasidone HCl 20 MG TABLET 60 MG PO (21:35)
[2022-07-05] MEDS: Gabapentin 400 MG CAPSULE PO (21:36)
[2022-07-05] MEDS: diphenhydrAMINE HCL 25 MG CAPSULE 50 MG PO (21:36)
[2022-07-06 09:10] VITALS: BP 123/79; PULSE 75; RESP 16; TEMP 36.8; O2SAT 100
[2022-07-06] MEDS: Lithium Carbonate ER 300 MG TABLET.ER 600 MG PO ×2 (09:20→22:19)
[2022-07-06] MEDS: Docusate Sodium 100 MG CAPSULE PO ×2 (09:20→22:19)
--- NOTE | 2022-07-06 17:05 | P.PNPSI_ITS ---
Subjective Subjective Date of Service: 07/06/22 Reason For Visit: Psychosis Interim History: asking to discharge friday. states she is in process of finding another apartment, may be able to stay with someone in [place]. will make calls today. otherwise reports will sleep in her SUV until she is able to secure new lodgings. per staff, disorganized, bizarre. argumentative on phone with mother. Mental Status Exam Mental Status Exam Narrative: pleasant. Engaged. street clothes. Self-care okay. Speech is incr rate and amount, decr latency. thoughts somewhat more organized but still largely circumstantial to tangential. No SI/HI/AVH expressed. Insight and judgment impaired but improved. Diagnostics Vital Signs (24Hr): Vital Signs - 24 hr 07/05/22 21:10 07/06/22 09:10 Temperature 97.6 F 98.2 F Pulse Rate 86 75 Respiratory Rate 18 16 Blood Pressure 128/79 123/79 Pulse Oximetry 98 100 Oxygen Delivery Method Room Air Room Air BMI result Body Mass Index 28.8 Labs 06/14/22 18:41 07/01/22 20:40 Medications Medications Current Medications Acetaminophen (Acetaminophen 325 Mg Tablet) 975 mg PO Q6H PRN PRN Reason: Headache/Pain Mild Scale (1-3) Last Admin: 06/28/22 09:59 Dose: 975 mg Al Hydroxide/Mg Hydroxide (Magnesium Hydrox/Alum Hydrox 30 Ml Oral.Susp) 30 ml PO Q6H PRN PRN Reason: Heartburn/Nausea Last Admin: 06/25/22 10:46 Dose: 30 ml Clonazepam (Clonazepam 0.5 Mg Tablet) 0.5 mg PO BEDTIME PRN PRN Reason: insomnia Diphenhydramine HCl (Diphenhydramine Hcl 25 Mg Capsule) 50 mg PO BEDTIME TALIB Last Admin: 07/05/22 21:36 Dose: 50 mg Diphenhydramine HCl (Diphenhydramine Hcl 25 Mg Capsule) 25 mg PO Q4H PRN PRN Reason: akathisia Last Admin: 06/18/22 11:33 Dose: 25 mg Docusate Sodium (Docusate Sodium 100 Mg Capsule) 100 mg PO BID TALIB Last Admin: 07/06/22 09:20 Dose: 100 mg Gabapentin (Gabapentin 100 Mg Capsule) 100 mg PO BEDTIME PRN PRN Reason: continued insomnia Last Admin: 06/25/22 23:33 Dose: 100 mg Gabapentin (Gabapentin 400 Mg Capsule) 400 mg PO BEDTIME TALIB Last Admin: 07/05/22 21:36 Dose: 400 mg Hydroxyzine HCl (Hydroxyzine Hcl 25 Mg Tablet) 25 mg PO BEDTIME PRN PRN Reason: Anxiety Last Admin: 07/04/22 12:34 Dose: 25 mg Hydroxyzine HCl (Hydroxyzine Hcl 25 Mg Tablet) 25 mg PO Q6H PRN PRN Reason: Anxiety Last Admin: 07/03/22 11:10 Dose: 25 mg [place] Carbonate ([place] Carbonate Er 300 Mg Tablet.Er) 600 mg PO DAILY TALIB Last Admin: 07/06/22 09:20 Dose: 600 mg [place] Carbonate ([place] Carbonate Er 300 Mg Tablet.Er) 600 mg PO BEDTIME TALIB Last Admin: 07/05/22 21:36 Dose: 600 mg Lurasidone HCl (Lurasidone Hcl 20 Mg Tablet) 60 mg PO BEDTIME TALIB Last Admin: 07/05/22 21:35 Dose: 60 mg Magnesium Hydroxide (Milk Of Magnesia 30 Ml Oral.Susp) 30 ml PO DAILY PRN PRN Reason: Constipation Last Admin: 07/01/22 08:49 Dose: 30 ml Allergies Allergies Allergy/AdvReac Type Severity Reaction Status Date / Time buspirone [From BUSPAR] Allergy Unknown RASH Unverified 11/25/19 19:49 Assessment & Plan Assessment & Plan (1) Schizoaffective disorder, bipolar type: Status: Acute Code(s): F25.0 - Schizoaffective disorder, bipolar type Plan presents with psychotic symptoms in the context of medication non adherence and psychosocial stressors. has had multiple medication trials in the past. Is open to Haldol, which she reports not being given on a regular basis but this was helpful when given as needed in the past. Will therefore order Haldol along with Benadryl to minimize EPS as per patient request. may consider long-acting injectable, which patient has never been on Hospital course: 06/16/2022: Discontinue daytime Haldol dosing and maintain nighttime Haldol with Benadryl 06/17: presentation c/w skyler, pt reports good response to lithium in the past. restart lithium at 450 mg BID. 06/18: no gross change from yesterday. asking to DC haldol and start latuda, which is done. asking for PRN for anxiety, agrees to ativan 1 mg Q4H PRN. 3- day up tomorrow. 06/19: rescinded 3-day notice yesterday. increase lithium to 600 BID due to ongoing skyler, albeit improved. 06/20: continue current mgmt. attempt to have pt increase HS latuda to 40 mg. check lithium level friday [facility]. 06/22: no med changes, lithium level wednesday 06/21:? patient remains manic, hyperverbal, perseverative on delusional ideas about her genitalia; also focused on history of eating disorder.? Patient currently refuses to increase Latuda worried about long-term side effects. -continue current treatment plan; will sign out to weekend provider to see if patient changes her mind about increasing Latuda. 06/23:increase latuda to 40 mg, lithium level tomorrow 06/24:lithium level= 0.86, no med changes 06/25 patient remains hypomanic however symptoms and insight have both improved pt still w/ pressured speech but much less so and she is now interruptible and able to have a give and take in conversation. Patient is no longer perseverating on gynecological concerns; she also says she was reminded by her mother that she has a history of PCOS and thinks that it is more likely her gynecological concerns are due to this history than anything else; patient does not express any delusional thinking in this area either. That said she would still like a gynecological exam as an outpatient due to history of intermittent citing some incontinence. Patient also is more able to explain her history of eating disorder which she said was most prominent during middle school years; she says this past fall she had a few binge eating episodes however denies any recent purging/restricting behaviors and now think she might not need to pursue treatment of this kind. Discussed patient's admission and she says she came in because she had disorganized skin confused thinking; discussed diagnosis of likely bipolar disorder which she agrees is probably the case. Patient reports history of multiple admissions, each with a similar presentation where she started not sleeping for several days, ending up disorganized and admitted to a psychiatric unit. Over the weekend patient agreed to increasing Latuda and says she has had no side effects since and agrees to continue at current dose; reviewed labs from lithium and patient agrees to remain on this as well. She reports trouble sleeping and asks for gabapentin at bedtime saying it helped in the past. Patient agrees that she should probably remain on the unit until she is sleeping through the night. -will change diagnosis to schizoaffective disorder, bipolar type with a rule out for bipolar disorder; may also have PTSD as she refers to wanting channeler who is trauma informed -patient is still manic/hypomanic and so hesitate to had any new diagnoses, however she does have some symptoms similar to ASD; 06/26 remains improved, however still hypomanic, overly flirtatious, some rigid or concrete thinking, not sleeping well and with odd interpersonal interactions, smiling or laughing and and then qualifying her reasons for doing so. Social work trying to contact patient's mother (patient gave verbal permission to call her mother, therapist and medication provider) and collateral remains important as it is unclear patient's baseline. 06/27 Patient slept last night and feels gabapentin was helpful. Patient more calm, much more linear and able to have a given taking conversation. She remains focused on wanting to talk about whether not she should go to an eating disorder clinic shares her past history with these struggles. There does not seem to be a current symptoms however. Patient shared that she continues to have intermittent auditory hallucinations but that they are not malicious and she does not want any increased medication for this. She also reports having intrusive thoughts and distinguishes them from the auditory hallucinations however she does not want to discuss. Diagnostic Cardiac Sonographer broached the topic of ASD and patient said that she has wondered about this for years. Diagnostic Cardiac Sonographer discussed how this can be a spectrum and some people can have some symptoms but not have the actual disorder to which patient understood and agreed. She shares how her difficulties in interpersonal relationships, understanding emotional cues, understanding when a person wants to stop talking or is not interested in the topic, sarcasm and jokes. Patient reports she used to rock back and forth to calm herself. She reports pacing the halls is for exercise; reports at baseline she always talks a lot and fairly quickly 06/28 patient remains stable; she is much improved and need collateral to assess whether not she is at baseline. 07/01: checks labs. increase latuda to 60 mg QHS. remains manic, delusional. 07/02: lithium 0.78, renal fxn WNL. remains manic, delusional. refused increased dose of latuda last NOC, agrees to take it tonight. 07/03: remains with pressured speech and tangential thought process. very reluctantly agrees to increase lithium from 600 BID to 600/750. took latuda 60 at HS last night, sans food. 07/04: return lithium dosing to 600 mg BID per pt request. no change in presentation from yesterday. 07/06: slight improvement in organization today. continue current mgmt. planning for friday discharge per pt request. Reason for continued inpatient stay Substantial Risk for: harm to self and inability to function Time Spent With Patient Time: Total time managing care of this patient today ____ minutes.
[2022-07-06 19:56] VITALS: BP 129/82; PULSE 90; RESP 18; TEMP 36.8; O2SAT 100
[2022-07-06] MEDS: diphenhydrAMINE HCL 25 MG CAPSULE 50 MG PO (22:19)
[2022-07-06] MEDS: Gabapentin 400 MG CAPSULE PO (22:19)
[2022-07-06] MEDS: Lurasidone HCl 20 MG TABLET 60 MG PO (22:19)
[2022-07-07] MEDS: Docusate Sodium 100 MG CAPSULE PO ×2 (08:55→20:59)
[2022-07-07] MEDS: Lithium Carbonate ER 300 MG TABLET.ER 600 MG PO ×2 (08:55→21:00)
[2022-07-07 09:00] VITALS: BP 125/76; PULSE 83; RESP 16; TEMP 36.8; O2SAT 100
--- NOTE | 2022-07-07 17:13 | P.PNPSI_ITS ---
Subjective Subjective Date of Service: 07/07/22 Reason For Visit: Psychosis Interim History: mildly improved over past two days, still concerningly ill. talking about various housing options she is pursuing. did not make the call yesterday she said she was going to make. talking about living out of her car if she cannot secure an apartment, that she would prefer to live out of her car anyway. asks to have latuda changed to dinnertime for unclear reasons. asking how to behave affectively - should she be peppy, as she would prefer, or would i accuse her of being manic? her calm demeanor now she describes as inappropriate, but she wants to come across however i want her to. per staff, slept 1230 on. she says she did not sleep well. isolating. Mental Status Exam Mental Status Exam Narrative: pleasant. Engaged. street clothes. Self-care okay. Speech is incr rate and amount, decr latency. thoughts somewhat more organized but still largely circumstantial to tangential. No SI/HI/AVH expressed. Insight and judgment impaired but improved. Diagnostics Vital Signs (24Hr): Vital Signs - 24 hr 07/06/22 19:56 07/07/22 09:00 Temperature 98.2 F 98.2 F Pulse Rate 90 83 Respiratory Rate 18 16 Blood Pressure 129/82 125/76 Pulse Oximetry 100 100 Oxygen Delivery Method Room Air Room Air BMI result Body Mass Index 28.8 Labs 06/14/22 18:41 07/01/22 20:40 Medications Medications Current Medications Acetaminophen (Acetaminophen 325 Mg Tablet) 975 mg PO Q6H PRN PRN Reason: Headache/Pain Mild Scale (1-3) Last Admin: 06/28/22 09:59 Dose: 975 mg Al Hydroxide/Mg Hydroxide (Magnesium Hydrox/Alum Hydrox 30 Ml Oral.Susp) 30 ml PO Q6H PRN PRN Reason: Heartburn/Nausea Last Admin: 06/25/22 10:46 Dose: 30 ml Clonazepam (Clonazepam 0.5 Mg Tablet) 0.5 mg PO BEDTIME PRN PRN Reason: insomnia Diphenhydramine HCl (Diphenhydramine Hcl 25 Mg Capsule) 50 mg PO BEDTIME TALIB Last Admin: 07/06/22 22:19 Dose: 50 mg Diphenhydramine HCl (Diphenhydramine Hcl 25 Mg Capsule) 25 mg PO Q4H PRN PRN Reason: akathisia Last Admin: 06/18/22 11:33 Dose: 25 mg Docusate Sodium (Docusate Sodium 100 Mg Capsule) 100 mg PO BID [facility] Last Admin: 07/07/22 08:55 Dose: 100 mg Gabapentin (Gabapentin 100 Mg Capsule) 100 mg PO BEDTIME PRN PRN Reason: continued insomnia Last Admin: 06/25/22 23:33 Dose: 100 mg Gabapentin (Gabapentin 400 Mg Capsule) 400 mg PO BEDTIME TALIB Last Admin: 07/06/22 22:19 Dose: 400 mg Hydroxyzine HCl (Hydroxyzine Hcl 25 Mg Tablet) 25 mg PO BEDTIME PRN PRN Reason: Anxiety Last Admin: 07/04/22 12:34 Dose: 25 mg Hydroxyzine HCl (Hydroxyzine Hcl 25 Mg Tablet) 25 mg PO Q6H PRN PRN Reason: Anxiety Last Admin: 07/03/22 11:10 Dose: 25 mg Throckmorton Carbonate (Throckmorton Carbonate Er 300 Mg Tablet.Er) 600 mg PO DAILY [facility] Last Admin: 07/07/22 08:55 Dose: 600 mg [place]rockmorton Carbonate (Throckmorton Carbonate Er 300 Mg Tablet.Er) 600 mg PO BEDTIME TALIB Last Admin: 07/06/22 22:19 Dose: 600 mg Lurasidone HCl (Lurasidone Hcl 20 Mg Tablet) 60 mg PO DAILY@1900 [facility] Magnesium Hydroxide (Milk Of Magnesia 30 Ml Oral.Susp) 30 ml PO DAILY PRN PRN Reason: Constipation Last Admin: 07/01/22 08:49 Dose: 30 ml Allergies Allergies Allergy/AdvReac Type Severity Reaction Status Date / Time buspirone [From BUSPAR] Allergy Unknown RASH Unverified 11/25/19 19:49 Assessment & Plan Assessment & Plan (1) Schizoaffective disorder, bipolar type: Status: Acute Code(s): F25.0 - Schizoaffective disorder, bipolar type Plan presents with psychotic symptoms in the context of medication non adherence and psychosocial stressors. has had multiple medication trials in the past. Is open to Haldol, which she reports not being given on a regular basis but this was helpful when given as needed in the past. Will therefore order Haldol along with Benadryl to minimize EPS as per patient request. may consider long-acting injectable, which patient has never been on Hospital course: 06/16/2022: Discontinue daytime Haldol dosing and maintain nighttime Haldol with Benadryl 06/17: presentation c/w skyler, pt reports good response to lithium in the past. restart lithium at 450 mg BID. 06/18: no gross change from yesterday. asking to DC haldol and start latuda, which is done. asking for PRN for anxiety, agrees to ativan 1 mg Q4H PRN. 3- day up tomorrow. 06/19: rescinded 3-day notice yesterday. increase lithium to 600 BID due to ongoing skyler, albeit improved. 06/20: continue current mgmt. attempt to have pt increase HS latuda to 40 mg. check lithium level friday [facility]. 06/22: no med changes, lithium level wednesday 06/21:? patient remains manic, hyperverbal, perseverative on delusional ideas about her genitalia; also focused on history of eating disorder.? Patient currently refuses to increase Latuda worried about long-term side effects. -continue current treatment plan; will sign out to weekend provider to see if patient changes her mind about increasing Latuda. 06/23:increase latuda to 40 mg, lithium level tomorrow 06/24:lithium level= 0.86, no med changes 06/25 patient remains hypomanic however symptoms and insight have both improved pt still w/ pressured speech but much less so and she is now interruptible and able to have a give and take in conversation. Patient is no longer perseverating on gynecological concerns; she also says she was reminded by her mother that she has a history of PCOS and thinks that it is more likely her gynecological concerns are due to this history than anything else; patient does not express any delusional thinking in this area either. That said she would still like a gynecological exam as an outpatient due to history of intermittent citing some incontinence. Patient also is more able to explain her history of e ating disorder which she said was most prominent during middle school years; she says this past fall she had a few binge eating episodes however denies any recent purging/restricting behaviors and now think she might not need to pursue treatment of this kind. Discussed patient's admission and she says she came in because she had disorganized skin confused thinking; discussed diagnosis of likely bipolar disorder which she agrees is probably the case. Patient reports history of multiple admissions, each with a similar presentation where she started not sleeping for several days, ending up disorganized and admitted to a psychiatric unit. Over the weekend patient agreed to increasing Latuda and says she has had no side effects since and agrees to continue at current dose; reviewed labs from lithium and patient agrees to remain on this as well. She reports trouble sleeping and asks for gabapentin at bedtime saying it helped in the past. Patient agrees that she should probably remain on the unit until she is sleeping through the night. -will change diagnosis to schizoaffective disorder, bipolar type with a rule out for bipolar disorder; may also have PTSD as she refers to wanting healthcare corporate account director who is trauma informed -patient is still manic/hypomanic and so hesitate to had any new diagnoses, however she does have some symptoms similar to ASD; 06/26 remains improved, however still hypomanic, overly flirtatious, some rigid or concrete thinking, not sleeping well and with odd interpersonal interactions, smiling or laughing and and then qualifying her reasons for doing so. Social work trying to contact patient's mother (patient gave verbal permission to call her mother, therapist and medication provider) and collateral remains important as it is unclear patient's baseline. 06/27 Patient slept last night and feels gabapentin was helpful. Patient more calm, much more linear and able to have a given taking conversation. She remains focused on wanting to talk about whether not she should go to an eating disorder clinic shares her past history with these struggles. There does not seem to be a current symptoms however. Patient shared that she continues to have intermittent auditory hallucinations but that they are not malicious and she does not want any increased medication for this. She also reports having intrusive thoughts and distinguishes them from the auditory hallucinations however she does not want to discuss. Deicer Inspector Pneumatic broached the topic of ASD and faisal han said that she has wondered about this for years. Deicer Inspector Pneumatic discussed how this can be a spectrum and some people can have some symptoms but not have the actual disorder to which patient understood and agreed. She shares how her difficulties in interpersonal relationships, understanding emotional cues, understanding when a person wants to stop talking or is not interested in the topic, sarcasm and jokes. Patient reports she used to rock back and forth to calm herself. She reports pacing the halls is for exercise; reports at baseline she always talks a lot and fairly quickly 06/28 patient remains stable; she is much improved and need collateral to assess whether not she is at baseline. 07/01: checks labs. increase latuda to 60 mg QHS. remains manic, delusional. 07/02: lithium 0.78, renal fxn WNL. remains manic, delusional. refused increased dose of latuda last NOC, agrees to take it tonight. 07/03: remains with pressured speech and tangential thought process. very reluctantly agrees to increase lithium from 600 BID to 600/750. took latuda 60 at HS last night, sans food. 07/04: return lithium dosing to 600 mg BID per pt request. no change in pre sentation from yesterday. 07/06: slight improvement in organization today. continue current mgmt. planning for friday discharge per pt request. 07/07: change latuda order to Q7pm, after dinner, per pt request. planning for discharge tomorrow. Reason for continued inpatient stay Substantial Risk for: inability to function and rapid decompensation Time Spent With Patient Time: Total time managing care of this patient today ____ minutes.
[2022-07-07] MEDS: Lurasidone HCl 20 MG TABLET 60 MG PO (18:24)
[2022-07-07] MEDS: diphenhydrAMINE HCL 25 MG CAPSULE 50 MG PO (20:59)
[2022-07-07] MEDS: Gabapentin 400 MG CAPSULE PO (20:59)
[2022-07-07 21:10] VITALS: BP 124/74; PULSE 75; RESP 16; TEMP 36.9; O2SAT 98
[2022-07-08 08:25] VITALS: BP 112/72; PULSE 99; RESP 18; TEMP 36.6; O2SAT 98
[2022-07-08] MEDS: Lithium Carbonate ER 300 MG TABLET.ER 600 MG PO (08:28)
[2022-07-08] MEDS: Docusate Sodium 100 MG CAPSULE PO (08:28)
--- NOTE | 2022-07-08 12:24 | MHC.CLN ---
NUTRITION CONSULT FOR PATIENT WANTING STRATEGIES TO REDUCE WEIGHT GAIN. VISITED WITH PATIENT IN UNIT MEETING ROOM. DIET=REGULAR, GLUTEN FREE. STATED THAT USUALLY EATS VEGETARIAN DIET. DISCUSSED PROTEIN FOODS TO INCLUDE IN MEALS. PATIENT FOCUSED ON EATING DISORDER HX. COULD NOT REDIRECT TO CONSULT TOPIC. ENCOURAGED TO EAT THREE MEALS PER DAY AND MAKE MENU SELECTIONS.
--- NOTE | 2022-07-08 12:36 | P.DS_ITS ---
DS: Providers Provider Date of Service: 07/08/22 Date of admission: 06/15/22 11:39 Primary care physician: Unknown Physician DS: Diagnosis Discharge Diagnosis (1) Schizoaffective disorder, bipolar type: Status: Acute DS: Medications Discharge Medications Home Medications: Home Medications Medication Instructions Recorded Confirmed hydroxyzine pamoate 25 mg capsule 25 mg PO BEDTIME PRN Anxiety 06/14/22 06/14/22 Previous Rx's Medication Instructions Recorded diphenhydramine HCl 25 mg capsule 50 mg PO BEDTIME 30 days #60 caps 07/01/22 docusate sodium 100 mg capsule 100 mg PO BID 30 days #60 caps 07/01/22 gabapentin 400 mg capsule 400 mg PO BEDTIME 30 days #30 caps 07/01/22 lithium carbonate 300 mg 600 mg PO BID 30 days #120 tabs 07/01/22 tablet,extended release clonazepam 0.5 mg tablet (Klonopin) 0.5 mg PO BEDTIME 30 days #30 tabs 07/02/22 lurasidone 60 mg tablet (Latuda) 60 mg PO QPM 30 days #30 tabs 07/02/22 Mental Status Exam Mental Status Exam Narrative: pleasant. Engaged. street clothes. Self-care okay. Speech is incr rate and amount, decr latency. thoughts largely circumstantial to tangential, loose associationsa, appears distracted. mood euthymic. denies SI/HI/AVH. Insight and judgment impaired but improved. Data Data Completed and Pending Completed studies during hospitalization [Text1]: 07/01/22 07/01/22 07/01/22 19:53 20:40 21:30 Sodium 140 Potassium 4.6 Chloride 105 Carbon Dioxide 29 Anion Gap 11 L BUN 9 Creatinine 0.76 Estim Creat Clear Calc 117.2 Estimated GFR > 60 Random Glucose 92 Calcium 9.9 D Urine Color Yellow Urine Appearance Clear Urine pH 8.0 Ur Specific [place] <= 1.005 Urine Protein Negative Urine Glucose (UA) Negative Urine Ketones Negative Urine Blood Negative Urine Nitrite Negative Ur Leukocyte Esterase Large (3+) H Urine RBC 0-2 Urine WBC 0-5 Ur Squamous Epith Cells 0-2 Urine Bacteria None Seen Hyaline Casts 0-2 [place] 0.78 07/01/22 22:21 Urine clean catch - Urine rodriguez top Urine Culture - Final DS: Summary Hospital Course Hospital Course: per 06/15 admission note: 26-year-old, senior at [employer].? Went to urgent care yesterday due to concerns around breathing.? Appear disorganized and sent to ED for evaluation.? Required IM medications once in the ED.? Noted home medications include Stelazine.? Patient does present with thought disorder and very tangential at times.? Spoke about having breathing concerns and asking her landlord about carbon monoxide monitors.? Reports this has been a concern for 1 year.? Unable to elaborate why it became more acute recently.? Reported having difficulty getting organized, preparing food and scheduling.? ? Denied feeling depressed.? Denied SI. ? did describe stressor of potentially relocating but had difficulty elaborate on details.? Was unsure if she felt safe currently.? Denies hallucinations.? Regarding Stelazine, reports that she is partially adherent with this.? Reports psychiatrist in [place]. ? Denied substance issues. ? 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 Reports this has not been going well but unable to elaborate. Made comments about limited contact with her mother but also having her mother's clothing which was sothing.? Mom lives in [place].? Reports father has .? Brother living in [place] . ? We discussed restarting Stelazine or perhaps Haldol, which he reports was helpful when given orally in the past.? Preferred Haldol along with Benadryl at nighttime.? Also aware she has a UTI and antibiotics ordered. Past Psychiatric History: ? Diagnosis likely consistent with schizophrenia.? Does have difficulty giving clear details.? Psychiatrist in [place].? On Stelazine.? Reports some tremors on same and therefore partial adherence.? Also mentioned a history of an eating disorder.? Denied any history of suicide attempts.? Last inpatient episode was last summer in [place].? Reports being prescribed antipsychotics and antidepressant medications in the past including tricyclics and trazodone, Seroquel, Abilify, Vraylar, lithium, olanzapine, Risperdal, Geodon, Latuda.? Unclear if prescribed Invega.? Never prescribed Rexulti or Haldol on a regular basis.? never been on a long-acting injectable Medical Evaluation Reviewed: Yes ?on antibiotics for UTI PMFSH Medical History?(Updated 06/14/22 @ 21:33 by Roxy Alatorre MD) Bipolar disorder Schizophrenia Social History: ? 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 Is in the process of relocating it appears, but this is unclear.? Originally from [place] where mom still lives.? There is a brother in [place].? Single.? No recent break-ups.? No substance issues. Substance History: ? None Precis: presents with psychotic symptoms in the context of medication non adherence and psychosocial stressors. ? has had multiple medication trials in the past.? Is open to Haldol, which she reports not being given on a regular basis but this was helpful when given as needed in the past.? Will therefore order Haldol along with Benadryl to minimize EPS as per? patient request.? may consider long- acting injectable, which patient has never been on 06/16/2022: Discontinue daytime Haldol dosing and maintain nighttime Haldol with Benadryl 06/17:? presentation c/w skyler, pt reports good response to lithium in the past.? restart lithium at 450 mg BID. 06/18:? no gross change from yesterday.? asking to DC haldol and start latuda, which is done.? asking for PRN for anxiety, agrees to ativan 1 mg Q4H PRN.? 3- day up tomorrow. 06/19:? rescinded 3-day notice yesterday.? increase lithium to 600 BID due to ongoing skyler, albeit improved. 06/20:? continue current mgmt.? attempt to have pt increase HS latuda to 40 mg.? check lithium level friday [facility]. 06/22: no med changes, lithium level wednesday 06/21:? patient remains manic, hyperverbal, perseverative on delusional ideas about her genitalia; also focused on history of eating disorder.? Patient currently refuses to increase Latuda worried about long-term side effects. -continue current treatment plan; will sign out to weekend provider to see if patient changes her mind about increasing Latuda. 06/23:increase latuda to 40 mg, lithium level tomorrow 06/24:lithium level= 0.86, no med changes 06/25 patient remains hypomanic however symptoms and insight have both improved pt still w/ pressured speech but much less so and she is now interruptible and able to have a give and take in conversation.? Patient is no longer perseverating on gynecological concerns; she also says she was reminded by her mother that she has a history of PCOS and thinks that it is more likely her gynecological concerns are due to this history than anything else; patient does not express any delusional thinking in this area either. That said she would still like a gynecological exam as an outpatient due to history of intermittent citing some incontinence.? Patient also is more able to explain her history of eating disorder which she said was most prominent during middle school years; she says this past fall she had a few binge eating episodes however denies any recent purging/restricting behaviors and now think she might not need to pursue treatment of this kind.? Discussed patient's admission and she says she came in because she had disorganized skin confused thinking; discussed diagnosis of likely bipolar disorder which she agrees is probably the case.? Patient reports history of multiple admissions, each with a similar presentation where she started not sleeping for several days, ending up disorganized and admitted to a psychiatric unit.? Over the weekend patient agreed to increasing Latuda and says she has had no side effects since and agrees to continue at current dose; reviewed labs from lithium and patient agrees to remain on this as well.? She reports trouble sleeping and asks for gabapentin at bedtime saying it helped in the past.? Patient agrees that she should probably remain on the unit until she is sleeping through the night. -will change diagnosis to schizoaffective disorder, bipolar type with a rule out for bipolar disorder; may also have PTSD as she refers to wanting business objects developer who is trauma informed -patient is still manic/hypomanic and so hesitate to had any new diagnoses, however she does have some symptoms similar to ASD; 06/26 remains improved, however still hypomanic, overly flirtatious,? some rigid or concrete thinking, not sleeping well and with odd interpersonal interactions, smiling or laughing and and then qualifying her reasons for doing so.? Social work trying to contact patient's mother (patient gave verbal permission to call her mother, therapist and medication provider) and collateral remains important as it is unclear patient's baseline. 06/27 Patient slept last night and feels gabapentin was helpful.? Patient more calm, much more linear and able to have a given taking conversation.? She remains focused on wanting to talk about whether not she should go to an eating disorder clinic shares her past history with these struggles.? There does not seem to be a current symptoms however.? Patient shared that she continues to have intermittent auditory hallucinations but that they are not malicious and she does not want any increased medication for this.? She also reports having intrusive thoughts and distinguishes them from the auditory hallucinations however she does not want to discuss.? Concrete Layer broached the topic of ASD and patient said that she has wondered about this for years.? Concrete Layer discussed how this can be a spectrum and some people can have some symptoms but not have the actual disorder to which patient understood and agreed.? She shares how her difficulties in interpersonal relationships, understanding emotional cues, understanding when a person wants to stop talking or is not interested in the topic, sarcasm and jokes.? Patient reports she used to rock back and forth to calm herself. She reports pacing the halls is for exercise; reports at baseline she always talks a lot and fairly quickly 06/28 patient remains stable; she is much improved and need collateral to assess whether not she is at baseline. 07/01:? checks labs.? increase latuda to 60 mg QHS.? remains manic, delusional. 07/02:? lithium 0.78, renal fxn WNL.? remains manic, delusional.? refused increa sed dose of latuda last NOC, agrees to take it tonight. 07/03:? remains with pressured speech and tangential thought process.? very reluctantly agrees to increase lithium from 600 BID to 600/750.? took latuda 60 at HS last night, sans food. 07/04:? return lithium dosing to 600 mg BID per pt request.? no change in presentation from yesterday. 07/06:? slight improvement in organization today.? continue current mgmt.? planning for friday discharge per pt request. 07/07:? change latuda order to Q7pm, after dinner, per pt request.? planning for discharge tomorrow. 07/08: less focus on delusional content but remains disorganized, asking to discharge today. not amenable to further medication changes, christine expires today, has car and money and involved mother. decision made to discharge as no further improvement likely to be had in the present circumstance. meds reviewed, reconciled, prescribed. pt discharged to self care. Time Spent with Patient Time attestation: Total time managing care of this patient today ____ minutes. Time spent: Greater than 30 minutes Discharge Plan Discharge Anticipated Discharge Date/Time: 07/08/22 14:00 Patient Disposition: Home, Self-Care Discharge Diagnosis: Bipolar I Disorder, MRE Skyler R/O Schizoaffective Disorder, Bipolar Type Referrals: Physician,Unknown J [Primary Care Provider] - 1 Week (Please follow up with PCP w/in 1 week of discharge) Discharge Medications: New gabapentin 400 mg Capsule 400 mg PO BEDTIME 30 Days Qty: 30 0RF lithium carbonate 300 mg Tablet Extended Release 600 mg PO BID 30 Days Qty: 120 0RF diphenhydramine HCl 25 mg Capsule 50 mg PO BEDTIME 30 Days Qty: 60 0RF docusate sodium 100 mg Capsule 100 mg PO BID 30 Days Qty: 60 0RF clonazepam [Klonopin] 0.5 mg tablet 0.5 mg PO BEDTIME 30 Days Qty: 30 0RF Rx Instructions: administer 30 minutes before bedtime lurasidone [Latuda] 60 mg tablet 60 mg PO QPM 30 Days Qty: 30 0RF Rx Instructions: must administer with food (at least 350 calories) Continued hydroxyzine pamoate 25 mg capsule 25 mg PO BEDTIME PRN (Reason: Anxiety) Discontinued trifluoperazine 2 mg tablet 2 mg PO QPM Discharge Orders: Discharge Order (Routine); Ordered 07/08/22 Ordered By: Mumtaz Del Cid Diet: Advance to usual diet Activity on Discharge: As tolerated Stand Alone Forms: Patient Portal Discharge page, Community Support Care Plan Goals: remain safe and stable in the outpatient treatment setting Health Concerns: none Plan of Treatment: take medications as prescribed, attend appointments as scheduled Assessment: not at imminent risk of harm to self or others
== END 2022-07-08 14:51 | disposition home or self-care (01) | DRG 750 ==
LOC: HO.ED 21:33 → HO.PADLT16 06-15 11:50
PROVIDERS: Physician Assistant Medical; Psychiatry & Neurology Psychiatry; Admitting Provider Psychiatry & Neurology Psychiatry; Emergency Provider Emergency Medicine; Visit Provider Psychiatry & Neurology Psychiatry
DX: F25.0 Schizoaffective disorder, bipolar type (principal); Z91.148 Patient's other noncompliance with medication regimen for other reason; Z20.822 Contact with and (suspected) exposure to COVID-19; Z88.8 Allergy status to other drugs, medicaments and biological substances; Z79.899 Other long term (current) drug therapy
CPT/HCPCS: 36415; 80048; 80053; 80061; 80143; 80178; 80179; 81001; 81025; 82077; 85025; 87086; 87635; 93005; 99285; J1200; J2060; S9485